=== PATIENT | female | born 1945 | race Caucasian/White ===

== ENCOUNTER 2018-02-22 19:21 | Inpatient (IN) | payer BC, MEDICARE ==
[2018-02-22] MEDS ORDERED: ACETAMINOPHEN TAB 500 MG TAB PO STA (20:09)
[2018-02-22] MEDS ORDERED: SODIUM CHLORIDE 0.9% 1,000 ML IV STA (20:09)
[2018-02-22] MEDS ORDERED: VANCOMYCIN IV PER PHARMACY 1 EACH MISC MISCELLANE PRN (20:09)
[2018-02-22] MEDS ORDERED: IBUPROFEN 600 MG TAB PO STA (20:09)
[2018-02-22] MEDS ORDERED: SODIUM CHLORIDE 0.9% 500 ML 500 ML IV STA (20:09)
[2018-02-22] MEDS ORDERED: cefTRIAXone 2,000 MG in SODIUM CHLORIDE 0.9% 100 ML IVPB STA (20:10)
[2018-02-22 20:50] LABS: Albumin 3.7 g/dL (3.5-5.0); Calcium 9.8 mg/dL (8.4-10.2); Magnesium 1.6 mg/dL (1.6-2.3); Phosphorus 2.5 mg/dL (2.5-4.5); Potassium 4.2 mmol/L (3.5-5.1); Total Protein 6.4 g/dL (6.3-8.2)
--- NOTE | 2018-02-22 20:59 | ED ---
Wound/Laceration HPI - General Chief Complaint: Wound/Laceration Stated Complaint: open sore/weakness Time Seen by Provider: 02/22/18 19:56 Source: patient, family, RN notes reviewed, old records reviewed Mode of arrival: wheelchair Limitations: no limitations - History of Present Illness Initial Comments: This is a 72-year-old female the ER for evaluation of abscess versus infection. Patient states she had an injury following up with her the likely cause her to have an abrasion in her buttocks area. Patient states that infection is worsened sialitis is worsened and she is unable to treat her symptoms at home. Patient coming in for evaluation of infection, denies taking her fever but she does feel like she has had fevers and chills -: days(s) (3) Place: home Patient Tetanus UTD: No Context: fall Associated Symptoms: none - Related Data Home Medications Medication Instructions Recorded Confirmed Ergocalciferol [Vitamin D2 1 cap PO SA 10/07/15 02/22/18 (DRISDOL)] Fenofibrate 160 mg PO DAILY 10/07/15 02/22/18 Lisinopril [Zestril] 20 mg PO QAM 10/07/15 02/22/18 Metoprolol Tartrate [Lopressor] 50 mg PO BID 10/07/15 02/22/18 Naproxen [Naprosyn] 500 mg PO BID 10/07/15 02/22/18 Omeprazole [PriLOSEC] 20 mg PO QAM 10/07/15 02/22/18 Simvastatin [Zocor] 40 mg PO DAILY 10/07/15 02/22/18 Ubidecarenone [Co Q-10] 200 mg PO QAM 10/07/15 02/22/18 Ascorbic Acid [Vitamin C] 500 mg PO DAILY 02/22/18 02/22/18 Aspirin [Adult Low Dose Aspirin EC] 81 mg PO DAILY 02/22/18 02/22/18 Cholecalciferol [Vitamin D3] 2,000 unit PO DAILY 02/22/18 02/22/18 Cyanocobalamin (Vitamin B-12) 1,000 mcg PO DAILY 02/22/18 02/22/18 [Vitamin B-12] Ferrous Sulfate [Feosol] 325 mg PO DAILY 02/22/18 02/22/18 Flaxseed Oil [Monarch-3 Flaxseed Oil] 1,000 mg PO DAILY 02/22/18 02/22/18 Folic Acid 0.4 mg PO DAILY 02/22/18 02/22/18 Glucosamine-Chondr 500-400Mg 1 tab PO DAILY 02/22/18 02/22/18 Multivitamins, Thera [Multivitamin 1 tab PO DAILY 02/22/18 02/22/18 (formulary)] Naproxen Sodium [Aleve] 220 mg PO Q12HR 02/22/18 02/22/18 Allergies Allergy/AdvReac Type Severity Reaction Status Date / Time Penicillins Allergy Rash/Hives Verified 02/22/18 23:19 titanium Allergy Anaphylaxis. Verified 02/22/18 20:51 SLOUGHING OF SKIN Review of Systems ROS Statement: Those systems with pertinent positive or pertinent negative responses have been documented in the HPI. ROS Other: All systems not noted in ROS Statement are negative. Past Medical History Past Medical History: GERD/Reflux, Hyperlipidemia, Hypertension, Osteoarthritis (OA) Additional Past Medical History / Comment(s): DIVERTICULITIS History of Any Multi-Drug Resistant Organisms: None Reported Past Surgical History: Cholecystectomy, Heart Catheterization With Stent, Tubal Ligation Additional Past Surgical History / Comment(s): LEFT ANKLE ORIF. BILATERAL KNEE REPLACEMENTS. 2 STENTS X 2. Past Anesthesia/Blood Transfusion Reactions: No Reported Reaction Date of Last Stent Placement:: UNK Past Psychological History: No Psychological Hx Reported Smoking Status: Never smoker Past Alcohol Use History: Rare Past Drug Use History: None Reported - Past Family History Mother Additional Family Medical History / Comment(s): DIVERTICULITIS General Exam - General Exam Comments Initial Comments: Left sacral abscess with surrounding cellulitis Limitations: no limitations General appearance: alert, in no apparent distress Head exam: Present: atraumatic, normocephalic, normal inspection Eye exam: Present: normal appearance, PERRL, EOMI. Absent: scleral icterus, conjunctival injection, periorbital swelling ENT exam: Present: normal exam, mucous membranes moist Neck exam: Present: normal inspection. Absent: tenderness, meningismus, lymphadenopathy Respiratory exam: Present: normal lung sounds bilaterally. Absent: respiratory distress, wheezes, rales, rhonchi, stridor Cardiovascular Exam: Present: regular rate, normal rhythm, normal heart sounds. Absent: systolic murmur, diastolic murmur, rubs, gallop, clicks GI/Abdominal exam: Present: soft, normal bowel sounds. Absent: distended, tenderness, guarding, rebound, rigid Extremities exam: Present: normal inspection, full ROM, normal capillary refill. Absent: tenderness, pedal edema, joint swelling, calf tenderness Back exam: Present: normal inspection Neurological exam: Present: alert, oriented X3, CN II-XII intact Psychiatric exam: Present: normal affect, normal mood Skin exam: Present: warm, dry, intact, normal color. Absent: rash Course Vital Signs 02/22/18 02/22/18 02/22/18 19:33 21:32 22:06 Temperature 99.5 F 98.1 F 98.1 F Pulse Rate 74 67 81 Respiratory Rate Blood Pressure 125/68 103/42 109/60 O2 Sat by Pulse 95 94 L 95 Oximetry Medical Decision Making - Medical Decision Making 72 female the ER for evaluation of breath of left buttocks, abscess syncope decubitus ulcer extremity cellulitis, patient be admitted for IV antibiotics - Lab Data Result diagrams: 02/25/18 07:03 02/25/18 07:03 Lab Results 02/22/18 02/22/18 02/22/18 Range/Units 20:15 20:15 20:15 WBC 16.6 H (3.8-10.6) k/uL RBC 4.37 (3.80-5.40) m/uL Hgb 13.5 (11.4-16.0) gm/dL Hct 40.3 (34.0-46.0) % MCV 92.4 (80.0-100.0) fL MCH 31.0 (25.0-35.0) pg MCHC 33.6 (31.0-37.0) g/dL RDW 13.5 (11.5-15.5) % Plt Count 127 L (150-450) k/uL Neutrophils % 83 % Lymphocytes % 4 % Monocytes % 9 % Eosinophils % 0 % Basophils % 0 % Neutrophils # 13.9 H (1.3-7.7) k/uL Lymphocytes # 0.7 L (1.0-4.8) k/uL Monocytes # 1.5 H (0-1.0) k/uL Eosinophils # 0.0 (0-0.7) k/uL Basophils # 0.0 (0-0.2) k/uL PT (9.0-12.0) sec INR (<1.2) APTT (22.0-30.0) sec Sodium 135 L (137-145) mmol/L Potassium 4.2 (3.5-5.1) mmol/L Chloride 102 (98-107) mmol/L Carbon Dioxide 22 (22-30) mmol/L Anion Gap 11 mmol/L BUN 23 H (7-17) mg/dL Creatinine 1.02 (0.52-1.04) mg/dL Est GFR (CKD-EPI)AfAm 63 (>60 ml/min/1.73 sqM) Est GFR (CKD-EPI)NonAf 55 (>60 ml/min/1.73 sqM) Glucose 365 H (74-99) mg/dL Plasma Lactic Acid Justice (0.7-2.0) mmol/L Calcium 9.8 (8.4-10.2) mg/dL Phosphorus 2.5 (2.5-4.5) mg/dL Magnesium 1.6 (1.6-2.3) mg/dL Total Bilirubin 1.0 (0.2-1.3) mg/dL AST 40 H (14-36) U/L ALT 58 H (9-52) U/L Alkaline Phosphatase 99 (38-126) U/L Total Creatine Kinase 57 (30-135) U/L CK-MB (CK-2) 0.9 (0.0-2.4) ng/mL CK-MB (CK-2) Rel Index 1.6 Troponin I 0.028 (0.000-0.034) ng/mL Total Protein 6.4 (6.3-8.2) g/dL Albumin 3.7 (3.5-5.0) g/dL Urine Color Urine Appearance (Clear) Urine pH (5.0-8.0) Ur Specific [place] (1.001-1.035) Urine Protein (Negative) Urine Glucose (UA) (Negative) Urine Ketones (Negative) Urine Blood (Negative) Urine Nitrite (Negative) Urine Bilirubin (Negative) Urine Urobilinogen (<2.0) mg/dL Ur Leukocyte Esterase (Negative) Urine RBC (0-5) /hpf Urine WBC (0-5) /hpf Ur Squamous Epith Cells (0-4) /hpf Urine Mucus (None) /hpf 02/22/18 02/22/18 02/22/18 Range/Units 20:15 20:15 20:40 WBC (3.8-10.6) k/uL RBC (3.80-5.40) m/uL Hgb (11.4-16.0) gm/dL Hct (34.0-46.0) % MCV (80.0-100.0) fL MCH (25.0-35.0) pg MCHC (31.0-37.0) g/dL RDW (11.5-15.5) % Plt Count (150-450) k/uL Neutrophils % % Lymphocytes % % Monocytes % % Eosinophils % % Basophils % % Neutrophils # (1.3-7.7) k/uL Lymphocytes # (1.0-4.8) k/uL Monocytes # (0-1.0) k/uL Eosinophils # (0-0.7) k/uL Basophils # (0-0.2) k/uL PT 11.6 (9.0-12.0) sec INR 1.2 H (<1.2) APTT 29.4 (22.0-30.0) sec Sodium (137-145) mmol/L Potassium (3.5-5.1) mmol/L Chloride (98-107) mmol/L Carbon Dioxide (22-30) mmol/L Anion Gap mmol/L BUN (7-17) mg/dL Creatinine (0.52-1.04) mg/dL Est GFR (CKD-EPI)AfAm (>60 ml/min/1.73 sqM) Est GFR (CKD-EPI)NonAf (>60 ml/min/1.73 sqM) Glucose (74-99) mg/dL Plasma Lactic Acid Justice 1.8 (0.7-2.0) mmol/L Calcium (8.4-10.2) mg/dL Phosphorus (2.5-4.5) mg/dL Magnesium (1.6-2.3) mg/dL Total Bilirubin (0.2-1.3) mg/dL AST (14-36) U/L ALT (9-52) U/L Alkaline Phosphatase (38-126) U/L Total Creatine Kinase (30-135) U/L CK-MB (CK-2) (0.0-2.4) ng/mL CK-MB (CK-2) Rel Index Troponin I (0.000-0.034) ng/mL Total Protein (6.3-8.2) g/dL Albumin (3.5-5.0) g/dL Urine Color Yellow Urine Appearance Cloudy H (Clear) Urine pH 5.5 (5.0-8.0) Ur Specific [place] 1.024 (1.001-1.035) Urine Protein 1+ H (Negative) Urine Glucose (UA) 4+ H (Negative) Urine Ketones Negative (Negative) Urine Blood Trace H (Negative) Urine Nitrite Negative (Negative) Urine Bilirubin Negative (Negative) Urine Urobilinogen <2.0 (<2.0) mg/dL Ur Leukocyte Esterase Small H (Negative) Urine RBC 3 (0-5) /hpf Urine WBC 16 H (0-5) /hpf Ur Squamous Epith Cells 7 H (0-4) /hpf Urine Mucus Rare H (None) /hpf - EKG Data -: EKG Interpreted by Me (EKG shows sinus rhythm rate of 89, FL 136, QRS 94, QTC 447) EKG shows normal: sinus rhythm - Radiology Data Radiology results: report reviewed (CT abdomen pelvis is negative for acute significant disease or abscess), image reviewed Disposition Clinical Impression: Sacral decubitus ulcer, Fever, Cellulitis of buttock, left Disposition: ADMITTED IP TO THIS [facility] Condition: Good Is patient prescribed a controlled substance at d/c from ED?: No
[2018-02-22 21:00] LABS: Basophils % (A) 0 %; Eosinophils % (A) 0 %; HCT 40.3 % (34.0-46.0); HGB 13.5 gm/dL (11.4-16.0); Lymphocytes # (A) 0.7 k/uL (1.0-4.8); Lymphocytes % (A) 4 %; MCHC 33.6 g/dL (31.0-37.0); MCV 92.4 fL (80.0-100.0); Mean Platelet Volume 10.2; Monocytes # (A) 1.5 k/uL (0-1.0); Monocytes % (A) 9 %; Neutrophils # (A) 13.9 k/uL (1.3-7.7); Neutrophils % (A) 83 %; Platelet Count 127 k/uL (150-450); RBC 4.37 m/uL (3.80-5.40); RDW 13.5 % (11.5-15.5); WBC 16.6 k/uL (3.8-10.6)
[2018-02-22] MEDS ORDERED: VANCOMYCIN 2,000 MG in SODIUM CHLORIDE 0.9% 500 ML 500 ML IVPB ONE (21:00)
[2018-02-22 21:01] LABS: Appearance,Urine Cloudy (Clear); Bilirubin,Urine Negative (Negative); Blood,Urine Trace (Negative); Color,Urine Yellow; Glucose,Urine (UA) 4+ (Negative); Ketones,Urine Negative (Negative); Leukocyte Esterase,Urine Small (Negative); Mucus,Urine Rare /hpf; Nitrite,Urine Negative (Negative); PH, Urine 5.5 (5.0-8.0); Protein,Urine 1+ (Negative); RBC,Urine 3 /hpf (0-5); Specific Gravity,Urine 1.024 (1.001-1.035); Squamous Epithelial Cell,Urine 7 /hpf (0-4); Urobilinogen,Urine <2.0 mg/dL (<2.0); WBC,Urine 16 /hpf (0-5)
[2018-02-22 21:09] LABS: INR 1.2 (<1.2); Partial Thromboplastin Time 29.4 sec (22.0-30.0); Prothrombin Time 11.6 sec (9.0-12.0)
[2018-02-22 21:27] LABS: Creatine Kinase MB 0.9 ng/mL (0.0-2.4)
[2018-02-22 21:30] LABS: Troponin I 0.028 ng/mL (0.000-0.034)
--- NOTE | 2018-02-22 21:41 | CT ---
EXAMINATION TYPE: CT pelvis w con DATE OF EXAM: 02/22/2018 COMPARISON: HISTORY: Left buttock wound. CT DLP: 1966.6 mGycm Automated exposure control for dose reduction was used. CONTRAST: Performed with IV Contrast, patient injected with 100 mL of Isovue 300. FINDINGS: Multiple axial sections were obtained from the level of L2 to the proximal femurs with intravenous co ntrast. There is a large incarcerated ventral hernia contains loops of bowel and fat. The opening is 6.5 x 13 cm. There is no ascites. There is no evidence of a bowel obstruction. Bladder is almost empty. I see no pelvic mass. Uterus is anteverted. There are spondylotic changes in the lower lumbar spine. There is no compression fracture. There is mild subcutaneous edema posteriorly over both buttocks. This is fairly symmetric. I see no evidence of an abscess. There are tiny soft tissue subcutaneous calcifica tions in the left buttock. The bony pelvis appears intact. There is a mild first-degree degenerative L4-5 spondylolisthesis. There is no inguinal hernia. IMPRESSION: I do not see evidence of a abscess in the buttocks. There is bilateral buttock subcutaneo us edema. There is also lower lumbar spine subcutaneous edema. There is spondylotic changes in the ashvin mbar spine with bony spinal stenosis at L4-5 and degenerative first-degree spondylolisthesis. There i s also some spinal stenosis at L2-3. Incarcerated large lower abdominal ventral hernia without eviden ce of a bowel obstruction.
[2018-02-23 00:24] LABS: Glucose,Whole Blood 347 mg/dL (75-99)
[2018-02-23] MEDS: INSULIN ASPART 100 UNIT/ML 1 ML 10 ML VIAL SQ SCH ×5 (00:42→21:28)
[2018-02-23] MEDS: ACETAMINOPHEN TAB 325 MG TAB PO PRN ×4 (00:51→15:53)
[2018-02-23 07:02] LABS: Glucose,Whole Blood 308 mg/dL (75-99)
[2018-02-23] MEDS: ENOXAPARIN 40 MG/0.4 ML SYRINGE SQ SCH (08:10)
[2018-02-23 11:15] VITALS: BMI 39.1
[2018-02-23 11:39] LABS: Glucose,Whole Blood 310 mg/dL (75-99)
[2018-02-23] MEDS ORDERED: LEVOFLOXACIN 500MG-D5W PMX 500 MG in DEXTROSE/WATER 1 100ML.BAG IVPB SCH (17:00)
[2018-02-23 17:18] LABS: Glucose,Whole Blood 241 mg/dL (75-99)
--- NOTE | 2018-02-23 18:10 | HP ---
HISTORY AND PHYSICAL DATE OF SERVICE: 02/23/2018 CHIEF COMPLAINTS: Fever and sacral wound. HISTORY OF PRESENT ILLNESS: This 72-year-old woman with a past medical history of multiple medical problems including GERD and hypertension, hyperlipidemia, history of DJD, being followed by Dr. Emeli Conklin in the outpatient setting, apparently had a trip to [place] a few weeks ago. Now currently the patient is complaining of some erythema and tenderness and as well as some ulceration of the sacral area with some fever. The patient came to [facility] and admitted for further evaluation and treatment. There is no history of any headache, loss of consciousness, chest pain, palpitations, hematochezia or melena at this time. PAST MEDICAL HISTORY: History of GERD, hypertension, hyperlipidemia, history of DJD, history of cholecystectomy. MEDICATIONS: Prior to admission include: 1. Coenzyme Q 200 mg q.a.m. 2. Zocor 40 mg daily. 3. Prilosec 20 mg q.a.m. 4. Naprosyn 500 mg b.i.d. 5. Aleve 220 mcg p.o. b.i.d. 6. Multivitamins 1 p.o. daily. 7. Lopressor 50 mg b.i.d. 8. Zestril 20 mg q.a.m. 9. Glucosamine chondroitin 1 tablet p.o. daily. 10.Folic acid 0.4 daily. 11.Boston-3 fatty acid 1 g daily. 12.Iron sulfate 320 mg daily. 13.Fenofibrate 160 mg p.o. daily. 14.Vitamin D2 1 capsule p.o. weekly. 15.Vitamin B12 1000 mcg p.o. daily. 16.Vitamin D3 2000 daily. 17.Aspirin 81 mg daily. 18.Vitamin C 500 mg daily. ALLERGIES: PENICILLIN AND TITANIUM. FAMILY HISTORY: History of diabetes in the family. SOCIAL HISTORY: No history of smoking. No history of alcohol intake. REVIEW OF SYSTEMS: ENT: No diminished vision. No diminished hearing. CARDIOVASCULAR: As mentioned earlier. RESPIRATORY: As mentioned earlier. GI no nausea or vomiting. no dysuria. CENTRAL NERVOUS SYSTEM: No numbness or weakness. ALLERGY/IMMUNOLOGY: No asthma or hayfever. CENTRAL NERVOUS SYSTEM: As mentioned earlier. MUSCULOSKELETAL: As mentioned earlier. HEMATOLOGY/ONCOLOGY: No history of anemia. ENDOCRINE: Diabetes. CONSTITUTIONAL: As mentioned earlier. Dermatology: Negative. Rheumatology: Negative. Psychiatry: As mentioned earlier. PHYSICAL EXAMINATION: GENERAL: The patient is alert and oriented times three. VITAL SIGNS: Pulse 74, pressure 121/77, respiratory rate 16, temperature 97.4, pulse ox 97% on room air. HEENT conjunctivae normal. Oral mucosa moist. Neck is no jugular venous distention. No carotid bruit. No lymph node enlargement. Obese. CARDIOVASCULAR: S1-S2. RESPIRATORY: Breath sounds diminished in the bases. A few scattered rhonchi and crackles. ABDOMEN: Soft, obese, nontender. No mass palpable. LEGS: No edema. No swelling. Examination of the sacrum significant erythema noted above the low back area present. Otherwise, sacral decubitus and ulceration with cellulitis, grade 1. NERVOUS SYSTEM: Higher functions as mentioned earlier. Moves all four limbs. No focal deficits. Lymphatics: No lymph nodes palpable in the neck, axillae or groin. SKIN as mentioned earlier. JOINTS: No active deforming arthropathy. LABS: WBC 16.6, platelets 127 and sodium 135, and glucose 365. Lactic acid 1.8. ASSESSMENT: 1. Sacral ulceration decubitus with cellulitis with severe acute respiratory syndrome. 2. Thrombocytopenia. 3. Hyponatremia. 4. Diabetes mellitus type 2. 5. Increased AST and ALT. 6. Possible urinary tract infection present on admission. 7. Obesity with body mass of 39.1. 8. Hypertension. 9. Hyperlipidemia. 10.Gastroesophageal reflux disease. 11.Degenerative joint disease. 12.History of diverticulitis. 13.History of coronary artery disease/stent. RECOMMENDATIONS AND DISCUSSION: In this 72-year-old woman who presented with multiple complex medical issues, we will monitor the patient closely. Continue the current medications, management and symptomatic treatment. We will initiate broad-spectrum IV antibiotics. Otherwise , I would recommend infectious disease evaluation with Dr. Castaneda. Resume the home medications. Monitor blood sugars closely. Resume home medications. Prognosis guarded because of multiple complex medical issues. Further recommendations to follow. A copy of dictation being forwarded to Dr. Conklin who is the primary care physician. MMMELONIEL / MIGNONN: [id number] / MTDD
[2018-02-23] MEDS: cefTRIAXone 2,000 MG in SODIUM CHLORIDE 0.9% 100 ML IVPB SCH (18:15)
[2018-02-23 20:09] LABS: Glucose,Whole Blood 283 mg/dL (75-99)
[2018-02-23] MEDS ORDERED: NAPROXEN SODIUM 220 MG PO SCH (21:00)
--- NOTE | 2018-02-23 21:16 | CONS ---
CONSULTATION DATE OF SERVICE: 02/23/2018. REASON FOR CONSULTATION: Gluteal/posterior back cellulitis with wound. HISTORY OF PRESENT ILLNESS: The patient is a 72 -year-old female, who apparently about 3 weeks ago did have an injury when she slammed on her toilet seat. She did have having a laceration small wound to the bilateral gluteal area. The patient say that her right sided gluteal ulceration has healed up. However, the left side, she still has small wound and has not completely healed up. Yesterday she noticed that her left gluteal area was swollen and red. She did have slight dull aching pain to that area with intensity about 4 to 5/10, and no radiation. The patient did have some chills with fever. With these symptoms, the patient presented to the [facility] ER to be further evaluated. On arrival the patient did have a low-grade fever of 99.5. The patient did have elevated white count 16.6, creatinine 1.02. Liver enzymes mildly elevated and she did have a positive UA with cloudy urine, small leukocyte esterases, 16 WBCs. The patient did have a CT of the pelvic area completed by the ER physician, which shows no evidence of abscess in the buttock. There is bilateral buttock subcutaneous edema and also lower lumbar edema with spondylitic changes in the lumbar spine. The patient did receive a dose of Rocephin and Vanco in the ER. Subsequently has been admitted to the hospital and Infectious Disease was consulted for further recommendation regarding antibiotic therapy. REVIEW OF SYSTEMS: CONSTITUTIONAL: Positive for weakness and some chills. EYES: No complaint. ENT no complaint. RESPIRATORY no complaint. CARDIOVASCULAR no complaint. GENITOURINARY no complaint. GASTROINTESTINAL: No complaint. MUSCULOSKELETAL no complaint. INTEGUMENTARY: As per HPI. PSYCHOLOGICAL: No complaint. ENDOCRINE: No complaint. NEUROLOGIC no complaint. PAST MEDICAL HISTORY: Hypertension, hyperlipidemia, osteoarthritis, gastroesophageal reflux disease, diverticulitis. PAST SURGICAL HISTORY: Cholecystectomy, PTCA with stent, tubal ligation, bilateral knee replacement and left ankle ORIF. SOCIAL HISTORY: Denies smoking, drinking, or drug use. FAMILY HISTORY: Mother with history of diverticulitis. ALLERGIES: PENICILLIN. However has taken Keflex without any problem . MEDICATIONS: Medication currently includes the patient is on: 1. Tylenol. 2. Vitamin C. 3. Aspirin. 4. Lipitor. 5. Levaquin. 6. Vitamin D3. 7. Lovenox. 8. Fenofibrate. 9. Iron sulfate. 10.Lopressor. 11.Theragran. 12.Vancomycin pharmacy to dose. EXAMINATION: Blood pressure is 139/81 with a pulse of 74, temperature 98.3. She is 94% on room air. General description is an elderly female, lying in bed in no distress. No tachypnea or accessory muscles of respiration use. HEENT: Shows slight pallor. No scleral icterus. Oral mucosal membranes are dry. No pharyngeal erythema. NECK: Trachea central. No thyromegaly. LUNGS: Unlabored breathing. Clear to auscultation anteriorly. No wheeze or crackles. HEART: S1, S2. Regular rate and rhythm. ABDOMEN: Soft, no tenderness. No guarding or rigidity. EXTREMITIES: No edema of the feet. Examination of the back in the presence of the RN did show a small superficial wound on the left gluteal area with no slough tissue. No surrounding swelling, redness, induration or any foul-smelling drainage. However, the patient did have extensive redness involving the left gluteal area that has been extending to the lower back which is warm to touch. NEUROLOGICAL: Patient is awake, alert, oriented times three. Mood and affect normal. LABS: Hemoglobin 13.5, white count 16.6 with a BUN of 23, creatinine 1.02. Electrolytes have been normal. Liver enzymes mildly elevated. Urine is mildly positive. Pelvic CT report as mentioned above. DIAGNOSTIC IMPRESSION AND PLAN: 1. Patient with left gluteal wound, which is traumatic now with secondary cellulitis. The likely portal of entry is the scrotal wound with a question of possible gram positive pathogen dose with gram-negative in view of the close proximity to the gastrointestinal tract. 2. The patient who does have a PENICILLIN ALLERGY that will limit the number of antibiotics that could be safely used. However, no history of anaphylaxis. PLAN: 1. RN has been advised to eva the area of redness. 2. Vancomycin, pharmacy to dose target of 15 while watching the kidney function and Vanco trough closely. 3. We will discontinue Levaquin and start the patient on Rocephin 2 g daily to cover for gram-negative. 4. We will follow on clinical condition and culture to further adjust medication if needed. Thank you for this consultation. We will follow the patient along with you. MMODL / IJN: [id number] /
[2018-02-23] MEDS: NAPROXEN 250 MG TAB PO SCH (21:27)
[2018-02-23] MEDS: METOPROLOL TARTRATE 50 MG TAB PO SCH (21:27)
[2018-02-23] MEDS: VANCOMYCIN 2,000 MG in SODIUM CHLORIDE 0.9% 500 ML 500 ML IVPB SCH (22:48)
[2018-02-24] MEDS: ACETAMINOPHEN TAB 325 MG TAB PO PRN ×2 (00:34→12:51)
[2018-02-24] MEDS: HYDROcodone/APAP 5-325MG 1 EACH TAB PO PRN ×2 (03:30→21:10)
[2018-02-24 06:56] LABS: Glucose,Whole Blood 222 mg/dL (75-99)
[2018-02-24] MEDS ORDERED: PANTOPRAZOLE 40 MG TABLET PO SCH (07:30)
[2018-02-24] MEDS: INSULIN ASPART 100 UNIT/ML 1 ML 10 ML VIAL SQ SCH ×4 (07:46→21:11)
[2018-02-24] MEDS: PANTOPRAZOLE 40 MG TABLET PO SCH (07:46)
[2018-02-24 08:12] LABS: Calcium 9.1 mg/dL (8.4-10.2); Potassium 4.2 mmol/L (3.5-5.1)
[2018-02-24] MEDS: FERROUS SULFATE 325 MG TAB PO SCH (08:55)
[2018-02-24] MEDS: ENOXAPARIN 40 MG/0.4 ML SYRINGE SQ SCH (08:55)
[2018-02-24] MEDS: cefTRIAXone 2,000 MG in SODIUM CHLORIDE 0.9% 100 ML IVPB SCH (08:55)
[2018-02-24] MEDS: ASPIRIN 81 MG PO SCH (08:55)
[2018-02-24] MEDS: FOLIC ACID 1 MG TAB PO SCH (08:55)
[2018-02-24] MEDS: ASCORBIC ACID 500 MG TAB PO SCH (08:55)
[2018-02-24] MEDS: CHOLECALCIFEROL 1,000 UNIT TAB PO SCH (08:55)
[2018-02-24] MEDS: CYANOCOBALAMIN 500 MCG TAB PO SCH (08:55)
[2018-02-24] MEDS: ATORVASTATIN 20 MG TAB PO SCH (08:55)
[2018-02-24] MEDS: LISINOPRIL 20 MG TAB PO SCH (08:55)
[2018-02-24] MEDS: FENOFIBRATE 160 MG TAB PO SCH (08:56)
[2018-02-24] MEDS: METOPROLOL TARTRATE 50 MG TAB PO SCH ×2 (08:56→21:56)
[2018-02-24] MEDS ORDERED: NON-FORMULARY DRUG (Glucosamine-Chondr 500-400mg 1 TAB) PO SCH (09:00)
[2018-02-24] MEDS ORDERED: NON-FORMULARY DRUG (Ubidecarenone [Co Q-10] 200 MG) PO SCH (09:00)
[2018-02-24] MEDS ORDERED: NON-FORMULARY DRUG (Flaxseed Oil [Omega-3 Flaxseed Oil] 1,000 MG) PO SCH (09:00)
[2018-02-24] MEDS: MULTIVITAMINS, THERA 1 EACH TAB PO SCH (09:01)
[2018-02-24] MEDS: NAPROXEN 250 MG TAB PO SCH ×2 (09:04→21:11)
[2018-02-24 11:59] LABS: Glucose,Whole Blood 287 mg/dL (75-99)
[2018-02-24] MEDS ORDERED: ERGOCALCIFEROL 50,000 UNIT CAP PO SCH (12:00)
[2018-02-24] MEDS ORDERED: INSULIN DETEMIR 100 UNIT/ML 10 ML VIAL SQ ONE (12:57)
[2018-02-24 13:23] LABS: Basophils % (A) 0 %; Eosinophils # (A) 0.2 k/uL (0-0.7); Eosinophils % (A) 2 %; HCT 37.5 % (34.0-46.0); HGB 12.3 gm/dL (11.4-16.0); Lymphocytes # (A) 1.3 k/uL (1.0-4.8); Lymphocytes % (A) 13 %; MCH 30.2 pg (25.0-35.0); MCHC 32.7 g/dL (31.0-37.0); MCV 92.1 fL (80.0-100.0); Mean Platelet Volume 10.8; Monocytes # (A) 0.9 k/uL (0-1.0); Monocytes % (A) 9 %; Neutrophils # (A) 7.4 k/uL (1.3-7.7); Neutrophils % (A) 72 %; Platelet Count 115 k/uL (150-450); RBC 4.07 m/uL (3.80-5.40); RDW 13.6 % (11.5-15.5); WBC 10.2 k/uL (3.8-10.6)
--- NOTE | 2018-02-24 16:08 | PN ---
PROGRESS NOTE DATE OF SERVICE: 02/24/2018 This 72 -year-old woman who was admitted with fever and sacral wound is being closely monitored. Patient also had new onset diabetes also. No chest pain. No palpitations. Sugars 300s and 200s at this time. Hemoglobin A1c is not available. Pelvis CAT scan was done which showed no evidence of abscess in the buttocks. was noted. No chest pain. No palpitation. Infectious disease evaluation in progress. PAST MEDICAL HISTORY: Reviewed. REVIEW OF SYSTEMS: Cardiovascular: No angina or palpitations. Respiration: As mentioned earlier. GI as mentioned earlier. no dysuria. Musculoskeletal: As mentioned earlier. Dermatology as mentioned earlier. CURRENT MEDICATIONS ARE: Reviewed and include: 1. Tylenol 650 q.6h p.r.n. 2. Connell 5 mg q.4h p.r.n. 3. Vitamin C 500 mg daily. 4. Aspirin 81 mg p.o. daily. 5. Lipitor 20 mg daily. 6. Rocephin 2 g IV daily. 7. Vitamin D3 2000 daily. 8. Vitamin B12 1000 daily. 9. Lovenox 40 mg subcu. 10.Vitamin D2 50,000 Monday. 11.Lovenox 40 mg subcu daily. 12.Vitamin B12 1000 daily. 13.Lofibra. 14.Folic acid. 15.NovoLog. 16.Levemir. 18.Lopressor. 19.Naprosyn. 20.Vancomycin doses reviewed. PHYSICAL EXAM: Patient is alert, oriented x3. Pulse 69, blood pressure 161/80, respiration 17, temperature is 98.2, pulse ox 98% on room air. HEENT: Conjunctivae normal. Oral mucosa moist. Neck is no jugular venous distention. No carotid bruit. No lymph node enlargement. Cardiac: S1, S2 muffled. RESPIRATORY: Breath sounds diminished in the bases. No rhonchi. No crackles. ABDOMEN: Soft, nontender. No mass palpable. Legs no edema. No swelling. NERVOUS SYSTEM: Higher functions as mentioned. Moves all four limbs. No focal deficits. Examination of the back, rash and significant rash and cellulitis present. LABS: WBC 10.2, hemoglobin 12.3, platelets 115. Sugars are noted. Creatinine 1.13. ASSESSMENT: 1. Sacral ulceration decubitus cellulitis with severe acute respiratory syndrome. 2. Thrombocytopenia. 3. New onset diabetes type 2, uncontrolled with hyperglycemia. 4. Hyponatremia. 5. Increased AST/ALT. 6. Possibly urinary tract infection, present on admission. 7. Obesity with body mass of 39.1. 8. Hypertension. 9. Hyperlipidemia. 10.Gastroesophageal reflux disease. 11.Degenerative joint disease. 12.History of diverticulitis. 13.History of coronary artery disease/stent. RECOMMENDATIONS AND DISCUSSION: Recommend to continue current medications, management and symptomatic treatment. Patient had trauma. Patient fell on the toilet seat about 3 weeks ago. Otherwise, I would recommend to continue the IV antibiotics and follow with Infectious Disease. Follow the cultures. Also recommend initiate Lantus 20 units subcu q.h.s. and continue scale also. The blood sugar control is important also to control infection. Discussed with the patient. Overall prognosis guarded because of multiple complex medical issues as listed above. Further recommendations to follow. ISRRAEL / ROSALEE: [id number] / MTDD
[2018-02-24 16:51] LABS: Glucose,Whole Blood 248 mg/dL (75-99)
[2018-02-24 18:04] LABS: Hemoglobin A1C 9.9 % (4.0-6.0)
[2018-02-24] MEDS: metFORMIN 500 MG TAB PO SCH (18:34)
[2018-02-24 20:43] LABS: Glucose,Whole Blood 244 mg/dL (75-99)
[2018-02-24] MEDS ORDERED: INSULIN DETEMIR 100 UNIT/ML 10 ML VIAL SQ SCH (21:00)
[2018-02-24] MEDS: VANCOMYCIN 2,000 MG in SODIUM CHLORIDE 0.9% 500 ML 500 ML IVPB SCH (21:11)
[2018-02-25] MEDS: HYDROcodone/APAP 5-325MG 1 EACH TAB PO PRN ×3 (03:04→21:46)
[2018-02-25 07:28] LABS: Glucose,Whole Blood 151 mg/dL (75-99)
[2018-02-25 07:45] LABS: Basophils # (A) 0.1 k/uL (0-0.2); Basophils % (A) 1 %; Eosinophils # (A) 0.3 k/uL (0-0.7); Eosinophils % (A) 3 %; HCT 35.8 % (34.0-46.0); HGB 11.9 gm/dL (11.4-16.0); Lymphocytes # (A) 1.2 k/uL (1.0-4.8); Lymphocytes % (A) 14 %; MCH 30.6 pg (25.0-35.0); MCHC 33.3 g/dL (31.0-37.0); MCV 91.7 fL (80.0-100.0); Mean Platelet Volume 10.7; Monocytes # (A) 0.8 k/uL (0-1.0); Monocytes % (A) 9 %; Neutrophils % (A) 70 %; Platelet Count 121 k/uL (150-450); RDW 13.7 % (11.5-15.5); WBC 8.6 k/uL (3.8-10.6)
[2018-02-25] MEDS: INSULIN ASPART 100 UNIT/ML 1 ML 10 ML VIAL SQ SCH ×4 (08:09→21:46)
[2018-02-25] MEDS: metFORMIN 500 MG TAB PO SCH ×2 (08:09→17:51)
[2018-02-25] MEDS: PANTOPRAZOLE 40 MG TABLET PO SCH (08:09)
[2018-02-25 08:40] LABS: Calcium 9.9 mg/dL (8.4-10.2)
[2018-02-25 08:53] LABS: Potassium 5.3 mmol/L (3.5-5.1)
[2018-02-25] MEDS: ENOXAPARIN 40 MG/0.4 ML SYRINGE SQ SCH (10:01)
[2018-02-25] MEDS: cefTRIAXone 2,000 MG in SODIUM CHLORIDE 0.9% 100 ML IVPB SCH (10:01)
[2018-02-25] MEDS: NAPROXEN 250 MG TAB PO SCH ×2 (10:01→21:47)
[2018-02-25] MEDS: MULTIVITAMINS, THERA 1 EACH TAB PO SCH (10:02)
[2018-02-25] MEDS: LISINOPRIL 20 MG TAB PO SCH (10:02)
[2018-02-25] MEDS: CHOLECALCIFEROL 1,000 UNIT TAB PO SCH (10:02)
[2018-02-25] MEDS: CYANOCOBALAMIN 500 MCG TAB PO SCH (10:02)
[2018-02-25] MEDS: FENOFIBRATE 160 MG TAB PO SCH (10:03)
[2018-02-25] MEDS: FERROUS SULFATE 325 MG TAB PO SCH (10:03)
[2018-02-25] MEDS: ASPIRIN 81 MG PO SCH (10:03)
[2018-02-25] MEDS: METOPROLOL TARTRATE 50 MG TAB PO SCH ×2 (10:03→21:46)
[2018-02-25] MEDS: FOLIC ACID 1 MG TAB PO SCH (10:03)
[2018-02-25] MEDS: ASCORBIC ACID 500 MG TAB PO SCH (10:03)
[2018-02-25] MEDS: ATORVASTATIN 20 MG TAB PO SCH (10:03)
[2018-02-25 11:35] LABS: Glucose,Whole Blood 265 mg/dL (75-99)
[2018-02-25 17:14] LABS: Glucose,Whole Blood 210 mg/dL (75-99)
[2018-02-25] MEDS ORDERED: VANCOMYCIN TROUGH DUE 1 EACH MISC MISCELLANE ONE (19:00)
[2018-02-25 20:10] LABS: Glucose,Whole Blood 255 mg/dL (75-99)
--- NOTE | 2018-02-25 20:57 | PN ---
PROGRESS NOTE DATE OF SERVICE: 02/25/2018 This 72-year-old woman, was admitted with sacral wound is on empiric IV antibiotics. No chest pain. No palpitations. No fever. The cultures are negative so far. The patient is on IV empiric antibiotics. PHYSICAL EXAM: Alert and oriented x3. Pulse 76, blood pressure 159/76, respiration 18, temperature 98.2, pulse ox 94% on room air. HEENT: Conjunctivae normal. Oral mucosa moist. Neck is no jugular venous distention. No carotid bruit. No lymph node enlargement. CARDIOVASCULAR: S1, S2. RESPIRATORY: Breath sounds diminished in the bases. No rhonchi. No crackles. ABDOMEN: Soft, nontender. LEGS: No edema. NERVOUS SYSTEM: No focal deficits. EXAMINATION OF THE BACK: Sacral area tenderness and redness and also significant maceration and as well as ulceration of the right gluteal area also present. LABS: Platelets are 121. Sodium 132, potassium 5.3 Accu-Cheks noted. ASSESSMENT: 1. Sacral ulceration and possible decubitus with cellulitis and SIRS. 2. Thrombocytopenia. 3. History of trauma. 4. New onset diabetes mellitus uncontrolled with hyperglycemia. 5. Hyponatremia. 6. Increased AST, ALT. 7. Urinary tract infection present on admission. 8. Obesity with body mass index of 39.1. 9. Hypertension. 10.Hyperlipidemia. 11.History of gastroesophageal reflux disease. 12.History of degenerative joint disease. 13.History of diverticulitis. 14.History of coronary artery disease, stent. RECOMMENDATIONS AND DISCUSSION: I recommend to continue with current management, continue monitoring and symptomatic treatment. Continue with IV antibiotics. I would also increase the dose of Lantus to 30 units and continue to monitor. Continue the metformin. Otherwise, continue to monitor. Further recommendations to follow. MMODL / IJN: [id number] /
[2018-02-25] MEDS: INSULIN DETEMIR 100 UNIT/ML 10 ML VIAL SQ SCH (21:46)
[2018-02-25] MEDS: VANCOMYCIN 2,000 MG in SODIUM CHLORIDE 0.9% 500 ML 500 ML IVPB SCH (21:47)
--- NOTE | 2018-02-25 23:33 | PN ---
PROGRESS NOTE DATE OF SERVICE: 02/25/2018. REASON FOR FOLLOWUP: Left gluteal wound with secondary cellulitis. INTERVAL HISTORY: The patient is currently afebrile. She is slightly feeling better. The gluteal pain and swelling has improved. The redness has decreased. Denies any chest pain, shortness of breath or cough. No diarrhea. EXAMINATION: Blood pressure is 181/79 with a pulse of 75, temperature 96.4, she is 96% on room air. GENERAL DESCRIPTION: An elderly female up in the chair in no distress. RESPIRATORY SYSTEM: Unlabored breathing. Clear to auscultation anteriorly. HEART: S1, S2 regular rate and rhythm. The left gluteal and back swelling and redness have decreased. No drainage. LABS: Hemoglobin is 11.8, white count 8.6, BUN of 31, creatinine 0.91. White count slightly elevated at 11.71. DIAGNOSTIC IMPRESSION AND PLAN: Patient with left gluteal wound with secondary cellulitis involving the left gluteal and the low back area, more likely from a gram-positive skin meaghan. Culture seems to have been negative so far. The patient treated with vancomycin and ceftriaxone and the patient did improve with oral antibiotics. Continue supportive care. MMODL / IJN: [id number] /
[2018-02-26 07:15] LABS: Glucose,Whole Blood 136 mg/dL (75-99)
[2018-02-26] MEDS: NAPROXEN 250 MG TAB PO SCH ×2 (07:52→21:48)
[2018-02-26] MEDS: METOPROLOL TARTRATE 50 MG TAB PO SCH ×2 (07:53→22:07)
[2018-02-26] MEDS: ASPIRIN 81 MG PO SCH (07:53)
[2018-02-26] MEDS: FENOFIBRATE 160 MG TAB PO SCH (07:53)
[2018-02-26] MEDS: metFORMIN 500 MG TAB PO SCH ×2 (07:53→18:01)
[2018-02-26] MEDS: MULTIVITAMINS, THERA 1 EACH TAB PO SCH (07:53)
[2018-02-26] MEDS: FOLIC ACID 1 MG TAB PO SCH (07:53)
[2018-02-26] MEDS: PANTOPRAZOLE 40 MG TABLET PO SCH (07:53)
[2018-02-26] MEDS: ATORVASTATIN 20 MG TAB PO SCH (07:53)
[2018-02-26] MEDS: ASCORBIC ACID 500 MG TAB PO SCH (07:53)
[2018-02-26] MEDS: CYANOCOBALAMIN 500 MCG TAB PO SCH (07:53)
[2018-02-26] MEDS: INSULIN ASPART 100 UNIT/ML 1 ML 10 ML VIAL SQ SCH ×4 (07:54→21:47)
[2018-02-26] MEDS: cefTRIAXone 2,000 MG in SODIUM CHLORIDE 0.9% 100 ML IVPB SCH (07:54)
[2018-02-26] MEDS: FERROUS SULFATE 325 MG TAB PO SCH (07:54)
[2018-02-26] MEDS: LISINOPRIL 20 MG TAB PO SCH (07:54)
[2018-02-26] MEDS: ENOXAPARIN 40 MG/0.4 ML SYRINGE SQ SCH (07:54)
[2018-02-26] MEDS: HYDROcodone/APAP 5-325MG 1 EACH TAB PO PRN ×2 (09:03→21:49)
[2018-02-26 10:05] LABS: Calcium 10.4 mg/dL (8.4-10.2); Potassium 5.1 mmol/L (3.5-5.1)
[2018-02-26 12:09] LABS: Glucose,Whole Blood 201 mg/dL (75-99)
[2018-02-26] MEDS: CHOLECALCIFEROL 1,000 UNIT TAB PO SCH (12:28)
[2018-02-26 17:40] LABS: Glucose,Whole Blood 184 mg/dL (75-99)
[2018-02-26 20:24] LABS: Glucose,Whole Blood 194 mg/dL (75-99)
[2018-02-26] MEDS: INSULIN DETEMIR 100 UNIT/ML 10 ML VIAL SQ SCH (21:47)
[2018-02-26] MEDS: VANCOMYCIN 2,000 MG in SODIUM CHLORIDE 0.9% 500 ML 500 ML IVPB SCH (21:48)
--- NOTE | 2018-02-27 00:19 | PN ---
PROGRESS NOTE DATE OF SERVICE: 02/26/2018. REASON FOR FOLLOWUP: Left gluteal back abscess and cellulitis. INTERVAL HISTORY: The patient is currently afebrile. The patient is slightly feeling better. The pain to the lower back and gluteal area has decreased. Denies any chest pain, shortness of breath or cough. No abdominal pain or any diarrhea. EXAMINATION: Blood pressure 135/78 with a pulse of 73, temperature 98.9. She is 97% on room air. General description is an elderly female up in the bed in no distress. Respiratory system: Unlabored breathing. Clear to auscultation anteriorly. Heart S1, S2. Regular rate and rhythm. Abdomen: Soft. No tenderness. Left gluteal swelling and redness decreased. Currently no drainage. DIAGNOSTIC IMPRESSION AND PLAN: Patient with left gluteal wound with secondary cellulitis involving the left gluteal and the lower back area. Wound culture so far negative. The patient at this time on vancomycin and Rocephin to continue for another 24 hours. If the patient continues to improve plan to finish therapy with oral Keflex for about a week with close outpatient followup. Continue supportive care. MMODL / IJN: [id number] /
--- NOTE | 2018-02-27 00:19 | PN ---
PROGRESS NOTE DATE OF SERVICE: 02/26/2018 PRESENTING COMPLAINT: Left gluteal wound with surrounding cellulitis. INTERVAL HISTORY: This patient presented with left gluteal wound with surrounding cellulitis. Pain is much better control. The patient is up and about, tolerating a diet. Has been on antibiotics. No fever. No chills. Overall feels much better. REVIEW OF SYSTEMS: Done for constitutional, cardiovascular, GI, pulmonary and relevant findings as above. CURRENT MEDICATIONS: Reviewed that include IV ceftriaxone and vancomycin. PHYSICAL EXAMINATION: VITAL SIGNS: Temperature 98.9, pulse 72, respiratory 18, blood pressure 165/78, pulse 97% on room air. GENERAL APPEARANCE: Well built, BMI 39.2, sitting up on a chair, awake, comfortable. EYES: Pupils equal. Conjunctivae normal. HEENT: External appearance of nose and ears normal. Oral cavity normal. NECK: JVD not raised. Mass not palpable. RESPIRATORY effort normal. LUNGS: Slightly decreased breath sounds. CARDIOVASCULAR: 1st and 2nd sounds normal. No edema. ABDOMEN: Soft, nontender. Liver and spleen not palpable. DERMATOLOGICAL: There is reddening of the left gluteus and a superficial wound near the lucy cleft. INVESTIGATIONS: Potassium 5.1, BUN 31, creatinine 0.93. The patient's wound cultures are negative showing normal meaghan. ASSESSMENT: 1. Acute left gluteal wound with surrounding cellulitis with SIRS with clinical improvement. 2. 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 3. Obesity; BMI 39.2. 4. Gastroesophageal reflux disease. 5. Hyperlipidemia. 6. Essential hypertension. 7. Primary osteoarthritis. 8. Coronary artery disease with stent. 9. Diabetes mellitus, type 2, chronically on insulin. PLAN: Continue current medication and treatment plan. The patient hopefully should be able to be switched to oral antibiotics and hopefully can be discharged tomorrow. Will discuss with Dr. Castaneda from [facility]. MMMARGI / IJN: [id number] /
[2018-02-27] MEDS: HYDROcodone/APAP 5-325MG 1 EACH TAB PO PRN ×2 (01:13→16:47)
[2018-02-27 07:23] LABS: Glucose,Whole Blood 139 mg/dL (75-99)
[2018-02-27] MEDS: ASCORBIC ACID 500 MG TAB PO SCH (07:50)
[2018-02-27] MEDS: METOPROLOL TARTRATE 50 MG TAB PO SCH (07:50)
[2018-02-27] MEDS: FENOFIBRATE 160 MG TAB PO SCH (07:50)
[2018-02-27] MEDS: metFORMIN 500 MG TAB PO SCH ×2 (07:50→16:56)
[2018-02-27] MEDS: PANTOPRAZOLE 40 MG TABLET PO SCH (07:50)
[2018-02-27] MEDS: CYANOCOBALAMIN 500 MCG TAB PO SCH (07:51)
[2018-02-27] MEDS: FOLIC ACID 1 MG TAB PO SCH (07:51)
[2018-02-27] MEDS: ASPIRIN 81 MG PO SCH (07:51)
[2018-02-27] MEDS: MULTIVITAMINS, THERA 1 EACH TAB PO SCH (07:51)
[2018-02-27] MEDS: NAPROXEN 250 MG TAB PO SCH (07:51)
[2018-02-27] MEDS: INSULIN ASPART 100 UNIT/ML 1 ML 10 ML VIAL SQ SCH ×2 (07:52→12:05)
[2018-02-27] MEDS: ATORVASTATIN 20 MG TAB PO SCH (07:52)
[2018-02-27] MEDS: LISINOPRIL 20 MG TAB PO SCH (07:52)
[2018-02-27] MEDS: ENOXAPARIN 40 MG/0.4 ML SYRINGE SQ SCH (07:52)
[2018-02-27] MEDS: FERROUS SULFATE 325 MG TAB PO SCH (07:52)
[2018-02-27] MEDS: cefTRIAXone 2,000 MG in SODIUM CHLORIDE 0.9% 100 ML IVPB SCH (07:53)
[2018-02-27 07:56] LABS: Calcium 9.9 mg/dL (8.4-10.2); Potassium 4.5 mmol/L (3.5-5.1)
[2018-02-27] MEDS ORDERED: CHLORTHALIDONE 25 MG TAB PO SCH (09:00)
[2018-02-27 11:57] LABS: Glucose,Whole Blood 164 mg/dL (75-99)
[2018-02-27] MEDS: CHOLECALCIFEROL 1,000 UNIT TAB PO SCH (12:06)
[2018-02-27] MEDS ORDERED: LISINOPRIL-HCTZ 20-12.5 MG 1 EACH TAB PO STA (12:55)
--- NOTE | 2018-02-27 14:34 | PN ---
PROGRESS NOTE DATE OF SERVICE: 02/27/2018 REASON FOR FOLLOWUP: A left gluteal wound with secondary cellulitis. INTERVAL HISTORY: The patient is currently afebrile. She has been better breathing comfortably. Denies having any chest pain, shortness of breath, abdominal pain, or any worsening pain to the back with the area. PHYSICAL EXAMINATION: Blood pressure 194/83 with a pulse of 73, temperature 97 description is a middle-aged female up in the chair in no distress respiratory system unlabored breathing clear to auscultation anteriorly heart S1, S2. Regular rate. No open left patella swelling tenderness in the is no drainage. LABS: BUN of 31, creatinine 0.84. DIAGNOSTIC IMPRESSION AND PLAN: Patient with a left gluteal small wound with secondary cellulitis culture has been negative for resistant pathogen. Recommend therapy with oral Keflex 500 mg q.6 hours for 10 days with close outpatient followup. Discussed with daughter as well as the attending physician. MMODL / IJN: [id number] /
[2018-02-27 14:59] VITALS: BP 163/81; PULSE 78; RESP 16; TEMP 99
[2018-02-27] MEDS ORDERED: INSULN ASP PRT/INSULIN ASPART 100 UNIT/ML 10 ML VIAL SQ SCH (17:30)
--- NOTE | 2018-02-28 00:46 | DS ---
DISCHARGE SUMMARY DATE OF ADMISSION: 02/22/2018. DATE OF DISCHARGE: 02/27/2018. FINAL DIAGNOSES: 1. Acute left gluteal wound with surrounding cellulitis with SIRS present on admission. 2. Thrombocytopenia, likely idiopathic thrombocytopenia purpura. 3. Obesity; BMI 39.2. 4. Gastroesophageal reflux disease. 5. Hyperlipidemia. 6. Essential hypertension. 7. Primary osteoarthritis. 8. Coronary artery with prior history of stent. 9. Diabetes mellitus type 2 chronically on insulin. HOSPITAL COURSE: This patient presented with left superficial gluteal wound with surrounding cellulitis. The patient's blood cultures were negative. Wound cultures were negative. The patient was treated with antibiotics, switched over to oral antibiotic today. I spoke to Dr. Castaneda. Oral antibiotic should suffice. I spoke to the patient. Blood pressure is running on the higher side, hence medications were adjusted. The patient also started on insulin. PHYSICAL EXAMINATION: Temperature 99, pulse 72, respirations 16, blood pressure 163/81, pulse ox 97% on room air. Left buttock cheek superficial wound with surrounding redness, improved. INVESTIGATIONS: Potassium 4.5. White count 8.6, hemoglobin 11.9. DISCHARGE MEDICATIONS: 1. Vitamin D2, 1 capsule p.o. on Monday. 2. Tricor 160 mg p.o. daily. 3. Lopressor 50 mg p.o. b.i.d. 4. Naproxen 500 mg p.o. b.i.d. 5. Prilosec 20 mg p.o. daily. 6. Zocor 40 mg p.o. daily. 7. CO Q10, 200 mg p.o. daily. 8. Vitamin C 500 mg p.o. daily. 9. Aspirin 81 mg p.o. daily. 10.Vitamin D3, 2000 units p.o. daily. 11.Vitamin B12, 1000 mcg p.o. daily. 12.Iron 325 p.o. daily. 13.Flaxseed oil 1000 mg p.o. daily. 14.Folic acid 0.4 mg p.o. daily. 15.Glucosamine chondroitin 1 tablet p.o. daily. 16.Multivitamin 1 tablet p.o. daily. 17.Keflex 100 mg p.o. every 6 hours 28 capsules. 18.Humulin 70/30, 15 units subcutaneous with meals b.i.d. 19.Zestoretic 20/12.5 one tab p.o. b.i.d. 20.Glucophage 500 mg p.o. b.i.d. 21.Accu-Cheks with meals t.i.d. and at bedtime. FOLLOWUP: 1. Follow up with Dr. Emeli Conklin in [address] Castaneda in 1 week. 3. Diabetic diet. Discussion and discharge planning more than 35 minutes. MMODL / IJN: [id number] /
== END 2018-02-27 17:36 | disposition home or self-care (01) | DRG 603 ==
LOC: EC 19:21 → 4SSUR 21:05
PROVIDERS: ADMIT Hospitalist; ATTEND Hospitalist
DX: L03.317 Cellulitis of buttock (principal); D69.3 Immune thrombocytopenic purpura; E87.1 Hypo-osmolality and hyponatremia; L02.212 Cutaneous abscess of back [any part, except buttock and flank]; L03.312 Cellulitis of back [any part except buttock and flank]; N39.0 Urinary tract infection, site not specified; E11.65 Type 2 diabetes mellitus with hyperglycemia; E66.9 Obesity, unspecified; E78.5 Hyperlipidemia, unspecified; I10 Essential (primary) hypertension; I25.10 Atherosclerotic heart disease of native coronary artery without angina pectoris; K21.9 Gastro-esophageal reflux disease without esophagitis; L89.159 Pressure ulcer of sacral region, unspecified stage; M19.91 Primary osteoarthritis, unspecified site; Z68.39 Body mass index [BMI] 39.0-39.9, adult; Z79.82 Long term (current) use of aspirin; Z83.3 Family history of diabetes mellitus; Z88.0 Allergy status to penicillin; Z95.5 Presence of coronary angioplasty implant and graft; Z96.653 Presence of artificial knee joint, bilateral; Z87.19 Personal history of other diseases of the digestive system; S31.82 Open wound of left buttock; Z83.79 Family history of other diseases of the digestive system
CPT/HCPCS: 36415; 72193; 80048; 80053; 80202; 81001; 82550; 82553; 83036; 83605; 83735; 84100; 84484; 85025; 85610; 85730; 87040; 87070; 87086; 87205; 93005; 96365; 96366; 99285

== ENCOUNTER 2019-12-19 12:55 | Emergency (ER) | payer BC, MEDICARE ==
[2019-12-19 13:18] VITALS: TEMP 98.2
[2019-12-19] MEDS ORDERED: KETOROLAC 15 MG/ML 1 ML VIAL IVP STA (13:45)
[2019-12-19] MEDS ORDERED: SODIUM CHLORIDE 0.9% 500 ML 500 ML IV STA (13:45)
--- NOTE | 2019-12-19 13:48 | ED ---
General Adult HPI - General Chief complaint: Abdominal Pain Stated complaint: R Lower Abd Pain Time Seen by Provider: 12/19/19 13:15 Source: patient, family, RN notes reviewed, old records reviewed Mode of arrival: wheelchair Limitations: no limitations - History of Present Illness Initial comments: This is a 74-year-old female presents emergency Department complaining of right flank pain that radiates down into her lower stomach. Patient states it started in the middle the night it was a 10 out of 10 when it occurred initially she states currently he is an 8 out of 10. Patient states the pain is waxing and waning and it did come on suddenly. Patient states she has had diverticulitis but this is different than diverticulitis. Patient denies any dysuria hematuria urinary frequency. Patient denies any palpable abdominal pain. Patient denies any recent injury or fall. Patient denies any fever or chills. Patient denies any chest pain difficulty breathing. - Related Data Previous Rx's Medication Instructions Recorded Ketorolac [Toradol] 10 mg PO Q6HR #15 tab 12/19/19 Sulfamethox-Tmp 800-160Mg [Bactrim 1 each PO Q12HR #14 tab 12/19/19 DS 800-160 mg] Allergies Allergy/AdvReac Type Severity Reaction Status Date / Time Penicillins Allergy Anaphylaxis Verified 12/19/19 13:18 titanium Allergy Rash/Hives Verified 12/19/19 13:18 Review of Systems ROS Statement: Those systems with pertinent positive or pertinent negative responses have been documented in the HPI. ROS Other: All systems not noted in ROS Statement are negative. Past Medical History Past Medical History: Diabetes Mellitus, Hyperlipidemia, Hypertension History of Any Multi-Drug Resistant Organisms: None Reported Past Psychological History: No Psychological Hx Reported Smoking Status: Never smoker Past Alcohol Use History: None Reported Past Drug Use History: None Reported General Exam - General Exam Comments Initial Comments: GENERAL: Patient is well-developed and well-nourished. Patient is nontoxic and well- hydrated and is in mild distress. ENT: Neck is soft and supple. No significant lymphadenopathy is noted. Oropharynx is clear. Moist mucous membranes. Neck has full range of motion without eliciting any pain. EYES: The sclera were anicteric and conjunctiva were pink and moist. Extraocular movements were intact and pupils were equal round and reactive to light. Eyelids were unremarkable. PULMONARY: Unlabored respirations. Good breath sounds bilaterally. No audible rales rhonchi or wheezing was noted. CARDIOVASCULAR: There is a regular rate and rhythm without any murmurs gallops or rubs. ABDOMEN: Soft and nontender with normal bowel sounds. SKIN: Skin is clear with no lesions or rashes and otherwise unremarkable. NEUROLOGIC: Patient is alert and oriented x3. Cranial nerves II through XII are grossly intact. Motor and sensory are also intact. Normal speech, volume and content. Symmetrical smile. MUSCULOSKELETAL: Normal extremities with adequate strength and full range of motion. No lower extremity swelling or edema. No calf tenderness. LYMPHATICS: No significant lymphadenopathy is noted PSYCHIATRIC: Normal psychiatric evaluation. Limitations: no limitations Course Vital Signs 12/19/19 13:15 Temperature 98.2 F Pulse Rate 69 Respiratory 18 Rate Blood Pressure 151/52 O2 Sat by Pulse 96 Oximetry Medical Decision Making - Medical Decision Making Computed tomography scan showed no evidence of kidney stone. There was no acute abnormality noted. I went back in the room she stated the Toradol helped her quite a bit. And she indicated to me at this time that the pain seemed to come and go when she would move or twist. Patient is slight urinary tract infection. - Lab Data Result diagrams: 12/19/19 13:55 12/19/19 13:55 Lab Results 12/19/19 12/19/19 12/19/19 Range/Units 13:55 13:55 14:04 WBC 7.1 (3.8-10.6) k/uL RBC 3.98 (3.80-5.40) m/uL Hgb 12.0 (11.4-16.0) gm/dL Hct 37.1 (34.0-46.0) % MCV 93.2 (80.0-100.0) fL MCH 30.2 (25.0-35.0) pg MCHC 32.5 (31.0-37.0) g/dL RDW 14.0 (11.5-15.5) % Plt Count 119 L (150-450) k/uL Neutrophils % 68 % Lymphocytes % 16 % Monocytes % 9 % Eosinophils % 4 % Basophils % 1 % Neutrophils # 4.8 (1.3-7.7) k/uL Lymphocytes # 1.1 (1.0-4.8) k/uL Monocytes # 0.6 (0-1.0) k/uL Eosinophils # 0.3 (0-0.7) k/uL Basophils # 0.1 (0-0.2) k/uL Manual Slide Review Performed Large Platelets Present Sodium 137 (137-145) mmol/L Potassium 5.0 (3.5-5.1) mmol/L Chloride 107 (98-107) mmol/L Carbon Dioxide 22 (22-30) mmol/L Anion Gap 8 mmol/L BUN 36 H (7-17) mg/dL Creatinine 1.00 (0.52-1.04) mg/dL Est GFR (CKD-EPI)AfAm 64 (>60 ml/min/1.73 sqM) Est GFR (CKD-EPI)NonAf 55 (>60 ml/min/1.73 sqM) Glucose 163 H (74-99) mg/dL Calcium 10.0 (8.4-10.2) mg/dL Total Bilirubin 0.8 (0.2-1.3) mg/dL AST 28 (14-36) U/L ALT 22 (4-34) U/L Alkaline Phosphatase 48 (38-126) U/L Total Protein 6.7 (6.3-8.2) g/dL Albumin 4.3 (3.5-5.0) g/dL Amylase 72 (30-110) U/L Lipase 291 (23-300) U/L Urine Color Yellow Urine Appearance Clear (Clear) Urine pH 6.5 (5.0-8.0) Ur Specific [place] 1.015 (1.001-1.035) Urine Protein Trace H (Negative) Urine Glucose (UA) Negative (Negative) Urine Ketones Negative (Negative) Urine Blood Negative (Negative) Urine Nitrite Negative (Negative) Urine Bilirubin Negative (Negative) Urine Urobilinogen <2.0 (<2.0) mg/dL Ur Leukocyte Esterase Moderate H (Negative) Urine RBC 2 (0-5) /hpf Urine WBC 28 H (0-5) /hpf Ur Squamous Epith Cells 2 (0-4) /hpf Amorphous Sediment Rare H (None) /hpf Urine Bacteria Rare H (None) /hpf Urine Mucus Rare H (None) /hpf Disposition Clinical Impression: Abdominal wall pain, Urinary tract infection Disposition: HOME SELF-CARE Condition: Good Instructions (If sedation given, give patient instructions): Abdominal Pain (ED) Prescriptions: Sulfamethox-Tmp 800-160Mg [Bactrim DS 800-160 mg] 1 each PO Q12HR #14 tab Ketorolac [Toradol] 10 mg PO Q6HR #15 tab Is patient prescribed a controlled substance at d/c from ED?: No Referrals: Emeli Conklin DO [Primary Care Provider] - 1-2 days Time of Disposition: 15:29
[2019-12-19 14:14] LABS: Basophils # (A) 0.1 k/uL (0-0.2); Basophils % (A) 1 %; Eosinophils # (A) 0.3 k/uL (0-0.7); Eosinophils % (A) 4 %; HCT 37.1 % (34.0-46.0); Lymphocytes # (A) 1.1 k/uL (1.0-4.8); Lymphocytes % (A) 16 %; MCH 30.2 pg (25.0-35.0); MCHC 32.5 g/dL (31.0-37.0); MCV 93.2 fL (80.0-100.0); Mean Platelet Volume 11.6; Monocytes # (A) 0.6 k/uL (0-1.0); Monocytes % (A) 9 %; Neutrophils # (A) 4.8 k/uL (1.3-7.7); Neutrophils % (A) 68 %; RBC 3.98 m/uL (3.80-5.40); WBC 7.1 k/uL (3.8-10.6)
[2019-12-19 14:19] LABS: Albumin 4.3 g/dL (3.5-5.0); Total Bilirubin 0.8 mg/dL (0.2-1.3); Total Protein 6.7 g/dL (6.3-8.2)
[2019-12-19 14:38] LABS: Amorphous Sediment,Urine Rare /hpf; Appearance,Urine Clear (Clear); Bacteria,Urine Rare /hpf; Bilirubin,Urine Negative (Negative); Blood,Urine Negative (Negative); Color,Urine Yellow; Glucose,Urine (UA) Negative (Negative); Ketones,Urine Negative (Negative); Leukocyte Esterase,Urine Moderate (Negative); Mucus,Urine Rare /hpf; Nitrite,Urine Negative (Negative); PH, Urine 6.5 (5.0-8.0); Protein,Urine Trace (Negative); RBC,Urine 2 /hpf (0-5); Specific Gravity,Urine 1.015 (1.001-1.035); Squamous Epithelial Cell,Urine 2 /hpf (0-4); Urobilinogen,Urine <2.0 mg/dL (<2.0); WBC,Urine 28 /hpf (0-5)
--- NOTE | 2019-12-19 14:39 | CT ---
EXAMINATION TYPE: CT abdomen pelvis wo con DATE OF EXAM: 12/19/2019 COMPARISON: CT pelvis 02/22/2018 HISTORY: 74-year-old female with abdominal and Right flank to right lower quadrant pain. CT DLP: 1440.4 mGycm. Automated exposure control for dose reduction was used. TECHNIQUE: Contiguous axial scanning of the abdomen and pelvis without IV contrast. Coronal and sagit claire reconstructions performed. FINDINGS: Heart mildly enlarged. Coronary artery calcifications are present. Strandy lower lung densities likel y represent areas of generalized atelectasis. No pleural effusion. Liver enlarged at 20.7 cm. Noncontrast assessment of the adrenal glands, spleen, and pancreas show no gross abnormality. Gallbladder surgically absent. Bilateral renal cysts redemonstrated measuring up to 4.1 cm on the right. Scattered mild to moderate atherosclerotic calcifications abdominal aorta and iliac arteries. No mesenteric or retroperitoneal lymphadenopathy. No dilated small bowel, free fluid, or free air. Postoperative changes of right hemicolectomy with il eocolonic anastomosis at the level of the midtransverse colon. There is a large ventral abdominal wall hernia containing extensive small bowel loops, the ileocoloni c anastomosis, and the mid transverse colon. No obstructive changes. No abnormal fluid collection. Th e hernia measures 29.9 cm wide and 16.8 cm craniocaudal. The abdominal wall defect measures up to 11. 4 cm wide. Bladder nondistended. Uterus anteverted. Both ovaries are visualized.. The right ovary measures sligh tly larger now at 3.8 x 2.5 cm versus 3.3 x 2.0 cm in 2018. Ultrasound can further evaluate. No abnor mal fluid collection in the pelvis or pelvic lymphadenopathy. The bladder is collapsed limiting its e valuation. Advanced hypertrophic facet arthropathy mid to lower lumbar spine with grade 1 anterolisthesis at L4- L5 and advanced degenerative disc disease L4-S1 levels. IMPRESSION: 1. Large ventral abdominal wall hernia containing multiple small bowel loops as well as the ileocolo kallie anastomosis after previous right hemicolectomy. The hernia sac measures 29.9 cm x 16.8 cm, not si gnificantly changed from 2018. No obstructive or inflammatory change is identified. 2. Hepatomegaly at 20.7 cm. 3. Right ovary shows slight increase in size as compared to 2018 at 3.8 cm x 2.5 cm (versus 3.3 x 2. 0 cm, previously). Nonemergent follow-up pelvic ultrasound to better characterize the ovary.
[2019-12-19 14:58] LABS: Platelet Count 119 k/uL (150-450)
[2019-12-19 14:59] LABS: Large Platelets Present
[2019-12-19] MEDS ORDERED: cefTRIAXone IN SWFI 1,000 MG/10 ML SYRINGE IVP STA (15:08)
[2019-12-19 15:40] VITALS: BP 137/86; PULSE 71; RESP 16
== END 2019-12-19 15:38 | disposition home or self-care (01) ==
LOC: EDBD → MERGE 12:55 → EC 12:55
DX: N39.0 Urinary tract infection, site not specified (principal); Z88.0 Allergy status to penicillin; Z91.048 Other nonmedicinal substance allergy status
CPT/HCPCS: 36415; 80053; 82150; 83690; 85025; 81001; 87086; 74176; 99284; 96374; 96361; J1885

== ENCOUNTER → 2020-01-10 | Outpatient (CLI) | payer BC, MEDICARE ==
[2020-01-10 15:56] LABS: INR 1.2 (<1.2); Prothrombin Time 11.9 sec (9.0-12.0)
--- NOTE | 2020-01-11 13:37 | HP ---
HISTORY AND PHYSICAL CHIEF COMPLAINT: Right hip pain. 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 It has worsened recently. She notes groin and thigh pain, worse with walking and at night. She has been limping. She has tried medications without much relief. She notes she is significantly limited because of pain. PAST MEDICAL HISTORY: Significant for hypertension, diabetes, thrombocytopenia, obesity, coronary artery disease. PAST SURGICAL HISTORY: Significant for previous knee surgery, cataract surgery and cholecystectomy. CURRENT MEDICATIONS: Aleve, hydrochlorothiazide, metoprolol, NovoLog, Prilosec, and simvastatin. FAMILY HISTORY: Significant for heart disease. SOCIAL HISTORY: Significant for social alcohol use. REVIEW OF SYSTEMS: 16 point review of systems otherwise reviewed and is noncontributory. PHYSICAL EXAMINATION: On examination, the patient is approximately 5 foot 7, 250 pounds of endomorphic habitus. HEENT exam is nonfocal. NECK: Supple. Passive motion right hip flexion 70 degrees, external rotation of the hip flexion 40 degrees, internal rotation 15 degrees with pain. Clinically, she has 1 cm shortening of the right lower extremity compared to the left. Her distal neurovascular exam appears intact in the right lower extremity. AP and lateral views of the right hip obtained in the office show severe osteoarthrosis with [id number] changes. IMPRESSION: 1. Right hip severe osteoarthrosis. 2. Non-insulin dependent diabetes. 3. History of coronary artery disease. 4. Thrombocytopenia. RECOMMENDATIONS: I talked to the patient at length regarding her condition along with treatment options. At this point, she is quite symptomatic and limited because of pain related to her osteoarthrosis. After thorough discussion, she opts to proceed with surgery. We will plan to proceed with right total hip arthroplasty utilizing a lateral approach. We will institute DVT prophylaxis postoperatively. Risks and benefits were discussed at length in layman's terms. MMODL / IJN: [id number] /
== END | disposition home or self-care (01) ==
LOC: LABPAT 15:14
PROVIDERS: ATTEND Orthopaedic Surgery
DX: Z01.818 Encounter for other preprocedural examination (principal); M16.11 Unilateral primary osteoarthritis, right hip; Z01.812 Encounter for preprocedural laboratory examination
CPT/HCPCS: 85610; 87070

== ENCOUNTER 2020-01-14 06:40 | Inpatient (IN) | payer BC, MEDICARE ==
[~2020-01-14 06:40] MED LIST: ACETAMINOPHEN TAB 500 MG TAB PO ONE; DEXAMETHASONE SOD PHOSPHATE 10 MG/ML 1 ML VIAL IV ONE; LIDOCAINE 1% (10MG/ML) FOR IV START INTRADERMA PRN; MELOXICAM 7.5 MG TAB PO ONE; MIDAZOLAM 2 MG/2 ML VIAL IV PRN; ONDANSETRON 4 MG/2 ML VIAL IVP ONE; TRANEXAMIC ACID 1,000 MG in SODIUM CHLORIDE 0.9% 100 ML IVPB ONE; fentaNYL (PF) 50 MCG/ML 2 ML AMP IVP PRN
[2020-01-14 07:46] LABS: Glucose,Whole Blood 177 mg/dL (75-99)
[2020-01-14] MEDS ORDERED: PROPOFOL 10 MG/ML 20 ML VIAL IV ONE (08:07)
[2020-01-14] MEDS ORDERED: MIDAZOLAM 2 MG/2 ML VIAL ONE (08:07)
[2020-01-14] MEDS ORDERED: fentaNYL (PF) 50 MCG/ML 2 ML AMP ONE (08:07)
[2020-01-14] MEDS: LACTATED RINGERS 1,000 ML IV SCH (08:09)
[2020-01-14] MEDS ORDERED: CLINDAMYCIN 150 MG/ML 4 ML VIAL IVPB ONE (08:37)
[2020-01-14] MEDS ORDERED: CLINDAMYCIN 1,800 MG in SODIUM CHLORIDE 0.9% IRRIGATIO 3,000 ML IRRIGATION ONE (08:53)
[2020-01-14] MEDS ORDERED: LACTATED RINGERS 1,000 ML IV ONE (09:38)
[2020-01-14] MEDS ORDERED: HYDROcodone/APAP 5-325MG 1 EACH TAB PO PRN (09:56)
[2020-01-14] MEDS ORDERED: MAGNESIUM HYDROXIDE 2,400 MG/10 ML CUP PO PRN (09:56)
[2020-01-14] MEDS ORDERED: NALOXONE 0.4 MG/ML 1 ML VIAL IV PRN (09:56)
--- NOTE | 2020-01-14 10:20 | P.OP ---
Date of Procedure: 01/14/20 Preoperative Diagnosis: Right hip severe osteoarthrosis Postoperative Diagnosis: Same Procedure(s) Performed: Right total hip arthroplastypress-fitlateral approach Implants: Depuy Corail size 11 standard collared femoral stem, 36 mm +5 cobalt chrome femoral head, 52 mm Carville acetabular shell with neutral polyethylene liner. Anesthesia: spinal Surgeon: Refugio Casillas Channeler Insole #1: Buck Flores Estimated Blood Loss (ml): 250 Pathology: other (Femoral head) Condition: stable Disposition: PACU Indications for Procedure: The patient's a 74-year-old female who presents with progressive right hip pain secondary to osteoarthrosis despite conservative measures. A discussion of the risks and benefits of operative intervention versus continued conservative measures was made with patient. She opted to proceed with surgery. Operative risks to include infection, neurovascular injury, fracture, leg length discrepancy, possible component loosening, possible instability, possible need for subsequent procedures was discussed. Informed consent was obtained. Operative Findings: As below Description of Procedure: The patient was brought to the operating room, and after induction of spinal anesthesia was placed in a lateral decubitus position. The bony prominences were appropriately padded. The pelvis was stable perpendicular to the floor with a pegboard. The right lower extremity was prepped and draped in normal fashion. A 12 cm incision was then made centered over the greater trochanter extending superiorly to level the ASIS and distally in line with the femoral shaft. The skin and subcutaneous tissues were divided sharply. Electrocautery was used for hemostasis. The fascia kacy and gluteus van fascia was split in line with the skin incision. The muscle fibers were bluntly dissected proximally. A self-retaining retractor was placed. The anterior and posterior margins of the gluteus medius muscles identified and the anterior two thirds was detached from the greater trochanter with electrocautery. The gluteus minimus tendon was identified and detached in a similar fashion. A wide capsulotomy was performed. The femoral neck fracture was identified in the lower neck cut was made approximately 1 1/2 cm above the level of the lesser trochanter with a sagittal saw at a 45 the shaft. The head was then extracted with a corkscrew. Attention was then paid towards preparing the acetabular. Anterior and posterior retractors were placed. The remaining capsular labral tissues debrided sharply clearly defining the acetabular margins. Began reaming with a 45 mm reamer taking care to initially medialize, then reaming at 45 of abduction and 20 of anteversion. Sequential reaming is performed up to 51 mm. This was down to bleeding bony surface. A trial 52 mm acetabular shell was inserted at 45 of abduction and 20 of anteversion. This was fully seated. There was good rim fit and stability. A neutral polyethylene liner was then impacted. Care taken to avoid any soft tissue interposition. Attention was then paid towards preparing the proximal femur. A box chisel was used to open the metaphyseal region. A canal finder was used to find the femoral canal. Sequential broaching was performed up to a size 11. This is placed in 15 of anteversion with the leg perpendicular floor judging off the trans-epicondylar axis. There is good rotational stability. A calcar mill was used to fashion the medial calcar. A trial standard neck along with a 36 mm +5 trial head was placed. The hip was gently reduced. It was taken through range of motion. I felt to be stable in flexion and extension with internal and external rotation. I felt there was adequate methodist of soft tissue tension. The hip was ge ntly dislocated. The trial components removed. Pulsatile lavage was utilized. The final size 11 standard collared femoral stem was inserted again with the leg perpendicular to the floor in 15 of anteversion. Again there was good rotational stability. A 36 mm +5 cobalt chrome femoral head was gently impacted. The hip was gently reduced. Again it was taken through motion and felt to be stable in flexion and extension with internal and external rotation. Pulsatile lavage was again utilized. With the leg in abduction the gluteus minimus and medius tendons reattached to the greater trochanter with #2 Ethibond suture. There was minimal drainage therefore a deep drain was not placed. The fascia kacy and gluteus van fascia was closed with #2 Ethibond suture. The subcutaneous tissues were reapproximated interrupted 2-0 Vicryl sutures. The skin was reapproximated with 3-0 subcuticular strata fix suture. Skin tape and adhesive was applied. A sterile dressing was applied. The patient was awoken from sedation and transferred to recovery room in good condition. Blood loss was estimated to 250 mL. No complications were incurred. Sponge and needle counts were correct in the case. Rajat RODRIGUEZ assisted during the major composes case to include exposure, implantation, and closure.
[2020-01-14 10:29] LABS: Glucose,Whole Blood 188 mg/dL (75-99)
--- NOTE | 2020-01-14 10:48 | XR ---
EXAMINATION TYPE: XR Hip Limited RT DATE OF EXAM: 01/14/2020 COMPARISON: None HISTORY: Postop right hip surgery TECHNIQUE: Single AP right hip FINDINGS: Femoral and acetabular components of in place from a right hip prosthesis. No acute fractur es are evident. Postsurgical soft tissue changes are evident. IMPRESSION: 1. No acute osseous abnormality post right hip replacement.
[2020-01-14] MEDS: HYDROmorphone 0.5 MG/0.5 ML SYRINGE IVP PRN ×2 (12:55→13:06)
[2020-01-14] MEDS: ONDANSETRON 4 MG/2 ML VIAL IVP PRN (12:57)
[2020-01-14] MEDS: GABAPENTIN 300 MG CAP PO SCH ×2 (16:05→22:29)
[2020-01-14] MEDS: CLINDAMYCIN 900 MG in DEXTROSE 5% IN WATER 50 ML IVPB SCH ×4 (16:06→23:37)
[2020-01-14 17:15] LABS: Glucose,Whole Blood 198 mg/dL (75-99)
--- NOTE | 2020-01-14 17:26 | P.CONS ---
History of Present Illness - Reason for Consult Consult date: 01/14/20 Medical management Requesting physician: Refugio Casillas - Chief Complaint Medical management - History of Present Illness 74-year-old female with PMH of diabetes mellitus, GERD, hypertension, dyslipidemia and B12 deficiency presents to [facility] for elective surgery. She underwent right total hip arthroplasty. [facility] physicians has been consulted for medical management of this patient. Patient was seen and examined after her procedure. Patient reports no pain in her right hip. She has not urinated or had a bowel movement since surgery. Patient states that she has not passed any gas. She denies any headache, lower extremity edema, nausea or vomiting, fever chills, cough, chest pain, shortness of breath, palpitations. No changes in appetite or weight. She denies any dizziness, numbness/weakness/tingling of the extremities. Review of Systems Pertinent positives and negatives as discussed in HPI, a complete review of systems was performed and all other systems are negative. Past Medical History Past Medical History: Diabetes Mellitus, GERD/Reflux, Hyperlipidemia, Hypertension, Osteoarthritis (OA) Additional Past Medical History / Comment(s): DIVERTICULITIS History of Any Multi-Drug Resistant Organisms: None Reported Past Surgical History: Cholecystectomy, Heart Catheterization With Stent, Tubal Ligation Additional Past Surgical History / Comment(s): LEFT ANKLE ORIF. BILATERAL KNEE REPLACEMENTS. 2 STENTS X 2. Past Anesthesia/Blood Transfusion Reactions: No Reported Reaction Date of Last Stent Placement:: UNKnown Past Psychological History: No Psychological Hx Reported Smoking Status: Never smoker Past Alcohol Use History: None Reported, Rare Past Drug Use History: None Reported - Past Family History Mother Additional Family Medical History / Comment(s): DIVERTICULITIS Medications and Allergies Home Medications Medication Instructions Recorded Confirmed Type Fenofibrate 160 mg PO DAILY 10/07/15 01/14/20 History Metoprolol Tartrate [Lopressor] 50 mg PO BID 10/07/15 01/14/20 History Omeprazole [PriLOSEC] 20 mg PO QAM 10/07/15 01/14/20 History Simvastatin [Zocor] 40 mg PO HS 10/07/15 01/14/20 History Ubidecarenone [Co Q-10] 200 mg PO QAM 10/07/15 01/14/20 History Ascorbic Acid [Vitamin C] 500 mg PO DAILY 02/22/18 01/14/20 History Cholecalciferol [Vitamin D3 (25 2,000 unit PO DAILY 02/22/18 01/14/20 History Mcg = 1000 Iu)] Cyanocobalamin (Vitamin B-12) 1,000 mcg PO DAILY 02/22/18 01/14/20 History [Vitamin B-12] Flaxseed Oil [[place]-3 Flaxseed Oil] 1,000 mg PO DAILY 02/22/18 01/14/20 History Folic Acid 0.4 mg PO DAILY 02/22/18 01/14/20 History Glucosamine-Chondr 500-400Mg 1 tab PO DAILY 02/22/18 01/14/20 History Multivitamins, Thera [Multivitamin 1 tab PO DAILY 02/22/18 01/14/20 History (formulary)] Lisinopril-Hctz 20-12.5 mg 1 tab PO BID #60 tab 02/27/18 01/14/20 Rx [Zestoretic 20-12.5] metFORMIN HCL [Glucophage] 500 mg PO BID-W/MEALS #60 tab 02/27/18 01/14/20 Rx Gabapentin [Neurontin] 600 mg PO TID 01/09/20 01/14/20 History Insulin Aspart Protam & Aspart 15 unit SQ BID 01/09/20 01/14/20 History [NovoLOG MIX 70-30 Flexpen] Naproxen Sodium [Aleve] 3 tab PO BID 01/09/20 01/14/20 History Allergies Allergy/AdvReac Type Severity Reaction Status Date / Time Penicillins Allergy Rash/Hives Verified 01/14/20 07:17 titanium Allergy Anaphylaxis. Verified 01/14/20 07:17 SLOUGHING OF SKIN Physical Exam Vitals: Vital Signs Temp Pulse Pulse Resp BP Pulse Ox 01/14/20 14:00 97.7 F 65 18 143/77 93 L 01/14/20 13:30 61 16 159/71 100 01/14/20 13:05 64 16 157/66 100 01/14/20 12:19 61 16 171/74 100 01/14/20 12:04 60 16 158/71 100 01/14/20 11:48 61 16 146/65 99 01/14/20 11:34 59 L 16 179/72 100 01/14/20 11:18 59 L 16 156/70 100 01/14/20 11:04 59 L 16 143/62 99 01/14/20 10:48 59 L 16 132/63 98 01/14/20 10:30 57 L 16 128/57 98 01/14/20 10:15 97.4 F L 62 12 124/59 99 01/14/20 08:07 205/91 01/14/20 07:24 97.7 F 73 20 226/88 95 Intake and Output 01/14/20 01/14/20 01/14/20 06:59 14:59 22:59 Intake Total 1401 Output Total 250 Balance 1151 Intake: IV 1401 Output: Estimated Blood Loss 250 Other: Weight 110.6 kg General: [non toxic], [no distress], [appears at stated age] Derm: [warm], [dry] Head: [atraumatic], [normocephalic], [symmetric] Eyes: [EOMI], [no lid lag], [anicteric sclera] Mouth: [no lip lesion], [mucus membranes moist] Cardiovascular: [S1S2 reg], [no murmur], [positive DP pulse bilateral], Lungs: [Decreased breath sounds bilateral], [no rhonchi, no rales] , [no accessory muscle use] Abdominal: [soft], [ nontender to palpation], [no guarding], [no appreciable organomegaly] Ext: [no gross muscle atrophy], [no edema], [no contractures], restricted range of motion in the right hip due to pain with dressing clean dry and intact Neuro: [no focal neuro deficits] Psych: [Alert], [oriented], [appropriate affect] Results Labs: Abnormal Lab Results - Last 24 Hours (Table) 01/14/20 01/14/20 01/14/20 Range/Units 07:45 10:27 17:13 POC Glucose (mg/dL) 177 H 188 H 198 H (75-99) mg/dL Assessment and Plan Assessment: Diabetes mellitus with hyperglycemia Hypertension GERD Dyslipidemia Obesity with BMI 30.2 Zioxv-eq-ufah glucose 198. Plans: Start insulin sliding scale. Regular Accu- Cheks. Hypoglycemic precautions. BP 143/77. Plans: Restart hydrochlorothiazide and lisinopril. Plans: Restart Protonix. Plans: Restart fenofibrate. Plans: Patient will benefit from a structured weight loss program. Patient names her son and daughter decision maker if she can't make decisions for herself. Patient would like to be full code. Thank you for this consult. Please call with any additional questions or concerns.
[2020-01-14] MEDS: ACETAMINOPHEN TAB 325 MG TAB PO PRN (17:47)
[2020-01-14] MEDS: INSULIN ASPART (NovoLOG) 100 UNIT/ML VIAL SQ SCH ×2 (17:49→21:16)
[2020-01-14] MEDS: HYDROmorphone 1 MG/ML 1 ML SYRINGE IVP PRN (19:07)
[2020-01-14] MEDS: SENNOSIDES-DOCUSATE SODIUM 1 EACH TAB PO SCH (20:08)
[2020-01-14] MEDS: METOPROLOL TARTRATE 50 MG TAB PO SCH (20:08)
[2020-01-14] MEDS: ATORVASTATIN 20 MG TAB PO SCH (20:08)
[2020-01-14] MEDS: LISINOPRIL-HCTZ 20-12.5 MG 1 EACH TAB PO SCH (20:08)
[2020-01-14 20:55] LABS: Glucose,Whole Blood 193 mg/dL (75-99)
[2020-01-15] MEDS: HYDROcodone/APAP 5-325MG 1 EACH TAB PO PRN ×2 (04:42→10:17)
[2020-01-15 06:59] LABS: Glucose,Whole Blood 195 mg/dL (75-99)
[2020-01-15] MEDS: LACTATED RINGERS 1,000 ML IV SCH (07:19)
[2020-01-15] MEDS: INSULIN ASPART (NovoLOG) 100 UNIT/ML VIAL SQ SCH ×4 (07:53→22:11)
[2020-01-15] MEDS: RIVAROXABAN 10 MG TAB PO SCH (07:53)
[2020-01-15] MEDS: METOPROLOL TARTRATE 50 MG TAB PO SCH ×2 (07:53→22:09)
[2020-01-15] MEDS: FENOFIBRATE 160 MG TAB PO SCH (07:54)
[2020-01-15] MEDS: GABAPENTIN 300 MG CAP PO SCH ×3 (07:54→23:15)
[2020-01-15] MEDS: PANTOPRAZOLE 40 MG TABLET PO SCH (07:54)
[2020-01-15] MEDS: LISINOPRIL-HCTZ 20-12.5 MG 1 EACH TAB PO SCH ×2 (07:55→22:08)
[2020-01-15 07:58] LABS: Basophils # (A) 0.1 k/uL (0-0.2); Basophils % (A) 1 %; Eosinophils # (A) 0.1 k/uL (0-0.7); Eosinophils % (A) 1 %; HCT 27.4 % (34.0-46.0); Hypochromasia Slight; Lymphocytes # (A) 0.9 k/uL (1.0-4.8); Lymphocytes % (A) 9 %; MCH 30.5 pg (25.0-35.0); MCHC 32.2 g/dL (31.0-37.0); MCV 94.9 fL (80.0-100.0); Mean Platelet Volume 10.9; Monocytes # (A) 1.7 k/uL (0-1.0); Monocytes % (A) 17 %; Neutrophils # (A) 6.8 k/uL (1.3-7.7); Neutrophils % (A) 67 %; Platelet Count 113 k/uL (150-450); RBC 2.89 m/uL (3.80-5.40); RDW 15.1 % (11.5-15.5)
[2020-01-15 08:05] LABS: HGB 8.8 gm/dL (11.4-16.0)
--- NOTE | 2020-01-15 09:57 | P.PN ---
Subjective Progress Note Date: 01/15/20 Principal diagnosis: Status post right total hip arthroplasty Patient evaluated at bedside, she is resting comfortably. She did discuss physical therapy, she did very difficult time getting to the bathroom. She did have some nausea. She denies any chest pain or shortness of breath. Objective - Vital Signs Vital signs: Vital Signs Temp 98.3 F 01/15/20 07:00 Pulse 79 01/15/20 07:00 Resp 18 01/15/20 07:00 BP 135/75 01/15/20 07:00 Pulse Ox 94 L 01/15/20 07:00 Intake & Output 01/14/20 01/15/20 01/15/20 18:59 06:59 18:59 Intake Total 1401 400 Output Total 250 800 Balance 1151 -400 Weight 110.6 kg Intake: IV 1401 Intake, IV Titration 400 Amount Lactated Ringers 1,000 ml 400 @ 20 mls/hr IV .Q24H [facility] Rx#:[id number] Output: Urine 800 Estimated Blood Loss 250 Other: # Voids 1 - Exam Right lower extremity: Incision is clean, dry, and intact. The exofin fusion tape is in good condition. There is minimal soft tissue swelling and ecchymosis surrounding the medial and lateral aspects of the incision. Calf is soft, no tenderness with palpation. Plantar flexion, dorsiflexion, EHL, FHL are intact. Sensory exam to light touch throughout the extremity is intact, dorsal pedis pulses 2+. - Labs CBC & Chem 7: 01/15/20 07:08 Labs: Abnormal Lab Results - Last 24 Hours (Table) 01/14/20 01/14/20 01/14/20 Range/Units 10:27 17:13 20:54 RBC (3.80-5.40) m/uL Hgb (11.4-16.0) gm/dL Hct (34.0-46.0) % Plt Count (150-450) k/uL Lymphocytes # (1.0-4.8) k/uL Monocytes # (0-1.0) k/uL POC Glucose (mg/dL) 188 H 198 H 193 H (75-99) mg/dL 01/15/20 01/15/20 Range/Units 06:57 07:08 RBC 2.89 L (3.80-5.40) m/uL Hgb 8.8 L D (11.4-16.0) gm/dL Hct 27.4 L (34.0-46.0) % Plt Count 113 L (150-450) k/uL Lymphocytes # 0.9 L (1.0-4.8) k/uL Monocytes # 1.7 H (0-1.0) k/uL POC Glucose (mg/dL) 195 H (75-99) mg/dL Assessment and Plan Assessment: Status post right total hip arthroplasty Plan: Pain control, continue oral medication. Advised patient she'll have nausea if she continues to use IV and oral without eating GI and DVT prophylaxis, continue current medication Daily dressing changes/ice the hip often Continue physical therapy If hemoglobin drops below 8.2, plan for transfusion of 1 unit of packed RBCs Medical recommendations Further recommendations to follow
[2020-01-15 11:51] LABS: Glucose,Whole Blood 316 mg/dL (75-99)
--- NOTE | 2020-01-15 15:04 | P.PN ---
Subjective Progress Note Date: 01/15/20 Patient was seen and examined. No acute events overnight. Patient reports 3 out of 10 severity pain in her right hip especially with movement. Feeling too weak to work with physical therapy. Patient and family concerned about tremor this morning. Patient reports tremor that started 2-3 days ago. Tremor is only with intention. No tremor at rest. Objective - Vital Signs Vital signs: Vital Signs Temp 98.3 F 01/15/20 07:00 Pulse 79 01/15/20 07:00 Resp 18 01/15/20 07:00 BP 135/75 01/15/20 07:00 Pulse Ox 94 L 01/15/20 07:00 Intake & Output 01/14/20 01/15/20 01/15/20 18:59 06:59 18:59 Intake Total 1401 400 Output Total 250 800 Balance 1151 -400 Weight 110.6 kg 110.6 kg Intake: IV 1401 Intake, IV Titration 400 Amount Lactated Ringers 1,000 ml 400 @ 20 mls/hr IV .Q24H [facility] Rx#:[id number] Output: Urine 800 Estimated Blood Loss 250 Other: # Voids 1 - Exam General: [non toxic], [no distress], [appears at stated age] Derm: [warm], [dry] Head: [atraumatic], [normocephalic], [symmetric] Eyes: [EOMI], [no lid lag], [anicteric sclera] Mouth: [no lip lesion], [mucus membranes moist] Cardiovascular: [S1S2 reg], [no murmur], [positive DP pulse bilateral], Lungs: [Decreased breath sounds bilateral], [no rhonchi, no rales] , [no accessory muscle use] Abdominal: [soft], [ nontender to palpation], [no guarding], [no appreciable organomegaly] Ext: [no gross muscle atrophy], [no edema], [no contractures] Neuro: [no focal neuro deficits], tremor with intention Psych: [Alert], [oriented], [appropriate affect] - Labs CBC & Chem 7: 01/15/20 07:08 Labs: Abnormal Lab Results - Last 24 Hours (Table) 01/14/20 01/14/20 01/15/20 Range/Units 17:13 20:54 06:57 RBC (3.80-5.40) m/uL Hgb (11.4-16.0) gm/dL Hct (34.0-46.0) % Plt Count (150-450) k/uL Lymphocytes # (1.0-4.8) k/uL Monocytes # (0-1.0) k/uL POC Glucose (mg/dL) 198 H 193 H 195 H (75-99) mg/dL 01/15/20 01/15/20 Range/Units 07:08 11:49 RBC 2.89 L (3.80-5.40) m/uL Hgb 8.8 L D (11.4-16.0) gm/dL Hct 27.4 L (34.0-46.0) % Plt Count 113 L (150-450) k/uL Lymphocytes # 0.9 L (1.0-4.8) k/uL Monocytes # 1.7 H (0-1.0) k/uL POC Glucose (mg/dL) 316 H (75-99) mg/dL Assessment and Plan Assessment: Tremor Acute blood loss anemia Diabetes mellitus with hyperglycemia Hypertension GERD Dyslipidemia Obesity with BMI 30.2 Likely intention. Plans: Would advise against treatment as this has only been going on for 2-3 days. Patient will need to follow-up in the outpatient setting for neurology evaluation and to rule out Parkinson's. Hemoglobin 8.8. Plans: Transfuse if hemoglobin less than 7. Repeat CBC tomorrow morning. Fzxrd-im-tulo glucose 316. Plans: Start insulin sliding scale. Regular Accu- Cheks. Hypoglycemic precautions. Restart home dose of insulin. BP 135/75. Plans: Restart hydrochlorothiazide and lisinopril. Plans: Restart Protonix. Plans: Restart fenofibrate. Plans: Patient will benefit from a structured weight loss program. Patient names her son and daughter decision maker if she can't make decisions for herself. Patient would like to be full code. Thank you for this consult. Please call with any additional questions or concerns.
[2020-01-15] MEDS: HYDROcodone/APAP 7.5-325MG 1 EACH TAB PO PRN (15:16)
[2020-01-15 16:41] LABS: Glucose,Whole Blood 228 mg/dL (75-99)
--- NOTE | 2020-01-15 16:43 | XR ---
EXAMINATION TYPE: XR chest 1V portable DATE OF EXAM: 01/15/2020 COMPARISON: NONE HISTORY: Fever TECHNIQUE: Single frontal view of the chest is obtained. FINDINGS: Arthropathy of the shoulders with bilateral lower lobe infiltrate and small effusion. Hear t enlarged. No pneumothorax. Biapical pleural thickening. Coarsened central interstitium. Degenerativ e change of the spine IMPRESSION: 1. Bilateral lower lobe infiltrate and small effusion correlate for pneumonia, otherwise consider CHF .
[2020-01-15] MEDS ORDERED: FUROSEMIDE 10 MG/ML 4 ML VIAL IV STA (17:29)
[2020-01-15] MEDS ORDERED: LEVOFLOXACIN 750MG-D5W PMX 750 MG in DEXTROSE/WATER 1 150ML.BAG IVPB SCH (18:00)
[2020-01-15 18:08] LABS: HCT 28.7 % (34.0-46.0); Hypochromasia Slight; MCH 30.3 pg (25.0-35.0); MCHC 31.5 g/dL (31.0-37.0); MCV 96.3 fL (80.0-100.0); Mean Platelet Volume 11.9; Platelet Count 125 k/uL (150-450); RBC 2.98 m/uL (3.80-5.40); WBC 12.7 k/uL (3.8-10.6)
[2020-01-15 19:04] LABS: Lymphocytes # (M) 0.76 k/uL (1.0-4.8); Monocytes # (M) 1.65 k/uL (0-1.0); Neutrophils # (M) 10.29 k/uL (1.3-7.7); Neutrophils % (M) 81 %; Nucleated Red Blood Cells 0 /100 WBC (0-0); Total Cells Counted 100
[2020-01-15 21:13] LABS: Glucose,Whole Blood 247 mg/dL (75-99)
[2020-01-15] MEDS: SENNOSIDES-DOCUSATE SODIUM 1 EACH TAB PO SCH (22:09)
[2020-01-15] MEDS: ATORVASTATIN 20 MG TAB PO SCH (22:09)
[2020-01-15] MEDS: INSULN ASP PRT/INSULIN ASPART 100 UNIT/ML 10 ML VIAL SQ SCH (22:10)
[2020-01-16] MEDS: HYDROcodone/APAP 7.5-325MG 1 EACH TAB PO PRN ×4 (01:17→22:56)
[2020-01-16] MEDS: LACTATED RINGERS 1,000 ML IV SCH (06:37)
[2020-01-16 06:49] LABS: Glucose,Whole Blood 213 mg/dL (75-99)
[2020-01-16] MEDS: INSULIN ASPART (NovoLOG) 100 UNIT/ML VIAL SQ SCH ×4 (07:44→20:24)
[2020-01-16] MEDS: PANTOPRAZOLE 40 MG TABLET PO SCH (09:15)
[2020-01-16] MEDS: FENOFIBRATE 160 MG TAB PO SCH (09:16)
[2020-01-16] MEDS: RIVAROXABAN 10 MG TAB PO SCH (09:16)
[2020-01-16] MEDS: METOPROLOL TARTRATE 50 MG TAB PO SCH ×2 (09:16→20:24)
[2020-01-16] MEDS: LISINOPRIL-HCTZ 20-12.5 MG 1 EACH TAB PO SCH (09:16)
[2020-01-16] MEDS: GABAPENTIN 300 MG CAP PO SCH ×3 (09:17→21:13)
[2020-01-16] MEDS: INSULN ASP PRT/INSULIN ASPART 100 UNIT/ML 10 ML VIAL SQ SCH ×2 (09:19→20:23)
[2020-01-16 09:43] LABS: Calcium 8.9 mg/dL (8.4-10.2); Potassium 4.6 mmol/L (3.5-5.1)
[2020-01-16 10:11] LABS: HCT 25.7 % (34.0-46.0); HGB 7.9 gm/dL (11.4-16.0); Hypochromasia Slight; MCH 29.4 pg (25.0-35.0); MCHC 30.8 g/dL (31.0-37.0); MCV 95.4 fL (80.0-100.0); Mean Platelet Volume 12.4; Platelet Count 100 k/uL (150-450); RBC 2.69 m/uL (3.80-5.40); WBC 10.8 k/uL (3.8-10.6)
[2020-01-16] MEDS ORDERED: FUROSEMIDE 10 MG/ML 4 ML VIAL IV STA (10:37)
[2020-01-16 10:46] LABS: Lymphocytes # (M) 0.76 k/uL (1.0-4.8); Monocytes # (M) 3.13 k/uL (0-1.0); Neutrophils # (M) 6.91 k/uL (1.3-7.7); Neutrophils % (M) 64 %; Nucleated Red Blood Cells 0 /100 WBC (0-0); Total Cells Counted 100
[2020-01-16 10:47] LABS: Polychromasia Present
[2020-01-16 11:37] LABS: Glucose,Whole Blood 247 mg/dL (75-99)
[2020-01-16] MEDS: ACETAMINOPHEN TAB 325 MG TAB PO PRN (11:38)
[2020-01-16] MEDS ORDERED: SODIUM CHLORIDE 0.9% 500 ML 500 ML IV ONE (12:51)
--- NOTE | 2020-01-16 13:10 | P.PN ---
Subjective Progress Note Date: 01/16/20 Patient was seen and examined. Yesterday, patient spiked a fever. CBC showed leukocytosis of 12.7. Blood cultures were ordered. Chest x-ray showed bilateral lower lobe infiltrate, pneumonia versus CHF. Patient reports intense weakness since her admission. She denies any dysuria. She denies any cough. She denies any abdominal pain. No chest pain, shortness of breath or palpitations. Objective - Vital Signs Vital signs: Vital Signs Temp 96.4 F L 01/16/20 12:12 Pulse 73 01/16/20 12:12 Resp 14 01/16/20 12:12 BP 96/49 01/16/20 12:12 Pulse Ox 97 01/16/20 08:02 Intake & Output 01/15/20 01/16/20 01/16/20 18:59 06:59 18:59 Intake Total 160 Output Total 500 210 400 Balance -340 -210 -400 Weight 110.6 kg Intake: Intake, IV Titration 160 Amount Lactated Ringers 1,000 ml 160 @ 20 mls/hr IV .Q24H [facility] Rx#:[id number] Output: Urine 500 210 400 Other: # Voids 1 210 1 - Exam General: [non toxic], [no distress], [appears at stated age] Derm: [warm], [dry] Head: [atraumatic], [normocephalic], [symmetric] Eyes: [EOMI], [no lid lag], [anicteric sclera] Mouth: [no lip lesion], [mucus membranes moist] Cardiovascular: [S1S2 reg], [no murmur], [positive DP pulse bilateral], Lungs: [Decreased breath sounds bilateral], [no rhonchi, no rales] , [no accessory muscle use] Abdominal: [soft], [ nontender to palpation], [no guarding], [no appreciable organomegaly] Ext: [no gross muscle atrophy], [no edema], [no contractures] Neuro: [no focal neuro deficits], tremor with intention Psych: [Alert], [oriented], [appropriate affect] - Labs CBC & Chem 7: 01/16/20 08:12 01/16/20 08:47 Labs: Abnormal Lab Results - Last 24 Hours (Table) 01/15/20 01/15/20 01/15/20 Range/Units 16:23 16:40 21:12 WBC 12.7 H (3.8-10.6) k/uL RBC 2.98 L (3.80-5.40) m/uL Hgb 9.0 L (11.4-16.0) gm/dL Hct 28.7 L (34.0-46.0) % MCHC (31.0-37.0) g/dL Plt Count 125 L (150-450) k/uL Neutrophils # (Manual) 10.29 H (1.3-7.7) k/uL Lymphocytes # (Manual) 0.76 L (1.0-4.8) k/uL Monocytes # (Manual) 1.65 H (0-1.0) k/uL Sodium (137-145) mmol/L BUN (7-17) mg/dL Creatinine (0.52-1.04) mg/dL Glucose (74-99) mg/dL POC Glucose (mg/dL) 228 H 247 H (75-99) mg/dL 01/16/20 01/16/20 01/16/20 Range/Units 06:47 08:12 08:47 WBC 10.8 H (3.8-10.6) k/uL RBC 2.69 L (3.80-5.40) m/uL Hgb 7.9 L (11.4-16.0) gm/dL Hct 25.7 L (34.0-46.0) % MCHC 30.8 L (31.0-37.0) g/dL Plt Count 100 L (150-450) k/uL Neutrophils # (Manual) (1.3-7.7) k/uL Lymphocytes # (Manual) 0.76 L (1.0-4.8) k/uL Monocytes # (Manual) 3.13 H (0-1.0) k/uL Sodium 133 L (137-145) mmol/L BUN 42 H (7-17) mg/dL Creatinine 1.81 H (0.52-1.04) mg/dL Glucose 210 H (74-99) mg/dL POC Glucose (mg/dL) 213 H (75-99) mg/dL 01/16/20 Range/Units 11:34 WBC (3.8-10.6) k/uL RBC (3.80-5.40) m/uL Hgb (11.4-16.0) gm/dL Hct (34.0-46.0) % MCHC (31.0-37.0) g/dL Plt Count (150-450) k/uL Neutrophils # (Manual) (1.3-7.7) k/uL Lymphocytes # (Manual) (1.0-4.8) k/uL Monocytes # (Manual) (0-1.0) k/uL Sodium (137-145) mmol/L BUN (7-17) mg/dL Creatinine (0.52-1.04) mg/dL Glucose (74-99) mg/dL POC Glucose (mg/dL) 247 H (75-99) mg/dL Assessment and Plan Assessment: SIRS Acute kidney injury Acute blood loss anemia Diabetes mellitus with hyperglycemia Hypotension GERD Dyslipidemia Obesity with BMI 30.2 Patient meet SIRS criteria with fever, leukocytosis, hypertension. Chest x-ray showing bilateral pneumonia versus CHF. Plans: Bolus 500 mL. Continue Levaquin IV. Follow blood cultures. Follow urinalysis. Follow pro-calcitonin. Follow lactic acid. Follow ID consultation. Creatinine 1.81. Plans: Avoid nephrotoxins. Repeat BMP tomorrow morning. Hemoglobin 7.9. Plans: Transfuse if hemoglobin less than 7. Will defer to orthopedic surgery for blood transfusion. Repeat CBC tomorrow morning. Ervtn-ge-dsho glucose 247. Plans: Start insulin sliding scale. Regular Accu- Cheks. Hypoglycemic precautions. Restart home dose of insulin. BP 96/49. Plans: Discontinued hydrochlorothiazide and lisinopril. Plans: Restart Protonix. Plans: Restart fenofibrate. Plans: Patient will benefit from a structured weight loss program. Patient names her son and daughter decision maker if she can't make decisions for herself. Patient would like to be full code. Thank you for this consult. Please call with any additional questions or concerns.
[2020-01-16 15:16] LABS: Appearance,Urine Cloudy (Clear); Bacteria,Urine Occasional /hpf; Bilirubin,Urine Negative (Negative); Blood,Urine Negative (Negative); Color,Urine Yellow; Glucose,Urine (UA) Negative (Negative); Hyaline Casts,Urine 3 /lpf (0-2); Ketones,Urine Negative (Negative); Leukocyte Esterase,Urine Large (Negative); Mucus,Urine Rare /hpf; Nitrite,Urine Negative (Negative); Protein,Urine Negative (Negative); RBC,Urine 3 /hpf (0-5); Specific Gravity,Urine 1.013 (1.001-1.035); Squamous Epithelial Cell,Urine 6 /hpf (0-4); Urobilinogen,Urine <2.0 mg/dL (<2.0); WBC,Urine 88 /hpf (0-5)
--- NOTE | 2020-01-16 15:17 | P.PN ---
Subjective Progress Note Date: 01/16/20 Principal diagnosis: Status post right total hip arthroplasty Patient evaluated at bedside, she is sleeping upon arrival. There is family members present. According to the family, patient is seen very fatigued today. Objective - Vital Signs Vital signs: Vital Signs Temp 98.2 F 01/16/20 14:18 Pulse 71 01/16/20 14:18 Resp 17 01/16/20 14:18 BP 118/70 01/16/20 14:18 Pulse Ox 96 01/16/20 14:18 Intake & Output 01/15/20 01/16/20 01/16/20 18:59 06:59 18:59 Intake Total 160 Output Total 500 210 400 Balance -340 -210 -400 Weight 110.6 kg Intake: Intake, IV Titration 160 Amount Lactated Ringers 1,000 ml 160 @ 20 mls/hr IV .Q24H DAVY Rx#:[id number] Output: Urine 500 210 400 Other: Voiding Method Bedside Commode # Voids 1 210 1 - Exam Right lower extremity: Incision is clean, dry, and intact. The exofin fusion tape is in good condition. There is minimal soft tissue swelling and ecchymosis surrounding the medial and lateral aspects of the incision. Calf is soft, no tenderness with palpation. Plantar flexion, dorsiflexion, EHL, FHL are intact. Sensory exam to light touch throughout the extremity is intact, dorsal pedis pulses 2+. - Labs CBC & Chem 7: 01/16/20 08:12 01/16/20 08:47 Labs: Abnormal Lab Results - Last 24 Hours (Table) 01/15/20 01/15/20 01/15/20 Range/Units 16:23 16:40 21:12 WBC 12.7 H (3.8-10.6) k/uL RBC 2.98 L (3.80-5.40) m/uL Hgb 9.0 L (11.4-16.0) gm/dL Hct 28.7 L (34.0-46.0) % MCHC (31.0-37.0) g/dL Plt Count 125 L (150-450) k/uL Neutrophils # (Manual) 10.29 H (1.3-7.7) k/uL Lymphocytes # (Manual) 0.76 L (1.0-4.8) k/uL Monocytes # (Manual) 1.65 H (0-1.0) k/uL Sodium (137-145) mmol/L BUN (7-17) mg/dL Creatinine (0.52-1.04) mg/dL Glucose (74-99) mg/dL POC Glucose (mg/dL) 228 H 247 H (75-99) mg/dL 01/16/20 01/16/20 01/16/20 Range/Units 06:47 08:12 08:47 WBC 10.8 H (3.8-10.6) k/uL RBC 2.69 L (3.80-5.40) m/uL Hgb 7.9 L (11.4-16.0) gm/dL Hct 25.7 L (34.0-46.0) % MCHC 30.8 L (31.0-37.0) g/dL Plt Count 100 L (150-450) k/uL Neutrophils # (Manual) (1.3-7.7) k/uL Lymphocytes # (Manual) 0.76 L (1.0-4.8) k/uL Monocytes # (Manual) 3.13 H (0-1.0) k/uL Sodium 133 L (137-145) mmol/L BUN 42 H (7-17) mg/dL Creatinine 1.81 H (0.52-1.04) mg/dL Glucose 210 H (74-99) mg/dL POC Glucose (mg/dL) 213 H (75-99) mg/dL 01/16/20 Range/Units 11:34 WBC (3.8-10.6) k/uL RBC (3.80-5.40) m/uL Hgb (11.4-16.0) gm/dL Hct (34.0-46.0) % MCHC (31.0-37.0) g/dL Plt Count (150-450) k/uL Neutrophils # (Manual) (1.3-7.7) k/uL Lymphocytes # (Manual) (1.0-4.8) k/uL Monocytes # (Manual) (0-1.0) k/uL Sodium (137-145) mmol/L BUN (7-17) mg/dL Creatinine (0.52-1.04) mg/dL Glucose (74-99) mg/dL POC Glucose (mg/dL) 247 H (75-99) mg/dL Assessment and Plan Assessment: Status post right total hip arthroplasty Plan: Pain control, continue oral medication. GI and DVT prophylaxis, continue current medication Daily dressing changes/ice the hip often Continue physical therapy Medical recommendations We'll check CBC in the morning, hemoglobin hasn't improved since 7.9, plan for transfusion of likely one unit. Internal medicine's consult infectious disease with regards to possible sepsis concerns, we'll discuss with them the po ssibility of transfusion Further recommendations to follow Time with Patient: Less than 30
--- NOTE | 2020-01-16 16:01 | XR ---
EXAMINATION TYPE: XR chest 1V portable DATE OF EXAM: 01/16/2020 COMPARISON: 01/25/2020 HISTORY: Cough possible pneumonia TECHNIQUE: Single frontal view of the chest is obtained. FINDINGS: Severe arthropathy of the shoulders. There is basilar subsegmental consolidation bilateral ly which is noticeably improved. Linear changes involving the upper lobes most typical scar or atelec tasis and there is mild thickening of the minor fissure. Heart size stable. No pneumothorax. Biapical pleural thickening IMPRESSION: 1. Improving bilateral lower lobe infiltrate and small effusion correlate for improving pneumonia.
[2020-01-16 16:30] LABS: Glucose,Whole Blood 249 mg/dL (75-99)
[2020-01-16 17:02] LABS: Hemoglobin A1C 6.8 % (4.0-6.0)
[2020-01-16 20:12] LABS: Glucose,Whole Blood 227 mg/dL (75-99)
[2020-01-16] MEDS: ATORVASTATIN 20 MG TAB PO SCH (20:24)
[2020-01-16] MEDS: SENNOSIDES-DOCUSATE SODIUM 1 EACH TAB PO SCH (20:24)
[2020-01-16 20:41] LABS: HCT 23.2 % (34.0-46.0); HGB 7.3 gm/dL (11.4-16.0); Hypochromasia Slight; MCH 29.9 pg (25.0-35.0); MCHC 31.4 g/dL (31.0-37.0); MCV 95.3 fL (80.0-100.0); Mean Platelet Volume 10.3; Platelet Count 100 k/uL (150-450); RBC 2.43 m/uL (3.80-5.40); RDW 15.1 % (11.5-15.5); WBC 9.9 k/uL (3.8-10.6)
--- NOTE | 2020-01-16 23:23 | P.CONS ---
History of Present Illness - Reason for Consult Consult date: 01/16/20 Fever Requesting physician: Bacilio Greene - Chief Complaint Fever 1 day - History of Present Illness Patient is 74-year-old female who was electively admitted to the hospital on 01/14/2024 right total hip arthroplasty this patient did have right hip severe osteoporosis, patient denies having any fever or chills or any respiratory or urinary symptoms before presentation hospital the patient was afebrile on the day of surgery however the patient did spike a fever of 102F last evening postop day 1 and she also have elevated white count in the morning of 12,000,, patient did have a chest x-ray previous study which was bilateral lower lobe infiltrate and small effusion correlate for pneumonia otherwise CHF UA was positive as well, to 60s adequately treated issues including bilateral lower lobe infiltrate and spine fusion correlate for improving the morning patient has been empirically treated with Levaquin because of her penicillin ALLERGY infection was considered if further management and consult for possible pneumonitis, the patient currently denies having any fever and chills no fever has been recorded today denies having headache or URI symptoms no chest pain shortness of breath on Rocephin covers production. Denies any nausea no vomitin g no bone pain no diarrhea and no significant urine symptom complaining of pain to the right hip though some improvement with the pain medication Review of Systems Positive point has been mentioned in the HPI rest of the systems are negative Past Medical History Past Medical History: Diabetes Mellitus, GERD/Reflux, Hyperlipidemia, Hypertension, Osteoarthritis (OA) Additional Past Medical History / Comment(s): DIVERTICULITIS History of Any Multi-Drug Resistant Organisms: None Reported Past Surgical History: Cholecystectomy, Heart Catheterization With Stent, Tubal Ligation Additional Past Surgical History / Comment(s): LEFT ANKLE ORIF. BILATERAL KNEE REPLACEMENTS. 2 STENTS X 2. Past Anesthesia/Blood Transfusion Reactions: No Reported Reaction Date of Last Stent Placement:: UNKnown Past Psychological History: No Psychological Hx Reported Smoking Status: Never smoker Past Alcohol Use History: None Reported, Rare Past Drug Use History: None Reported - Past Family History Mother Additional Family Medical History / Comment(s): DIVERTICULITIS Medications and Allergies Home Medications Medication Instructions Recorded Confirmed Type Fenofibrate 160 mg PO DAILY 10/07/15 01/14/20 History Metoprolol Tartrate [Lopressor] 50 mg PO BID 10/07/15 01/14/20 History Omeprazole [PriLOSEC] 20 mg PO QAM 10/07/15 01/14/20 History Simvastatin [Zocor] 40 mg PO HS 10/07/15 01/14/20 History Ubidecarenone [Co Q-10] 200 mg PO QAM 10/07/15 01/14/20 History Ascorbic Acid [Vitamin C] 500 mg PO DAILY 02/22/18 01/14/20 History Cholecalciferol [Vitamin D3 (25 2,000 unit PO DAILY 02/22/18 01/14/20 History Mcg = 1000 Iu)] Cyanocobalamin (Vitamin B-12) 1,000 mcg PO DAILY 02/22/18 01/14/20 History [Vitamin B-12] Flaxseed Oil [[place]-3 Flaxseed Oil] 1,000 mg PO DAILY 02/22/18 01/14/20 History Folic Acid 0.4 mg PO DAILY 02/22/18 01/14/20 History Glucosamine-Chondr 500-400Mg 1 tab PO DAILY 02/22/18 01/14/20 History Multivitamins, Thera [Multivitamin 1 tab PO DAILY 02/22/18 01/14/20 History (formulary)] Lisinopril-Hctz 20-12.5 mg 1 tab PO BID #60 tab 02/27/18 01/14/20 Rx [Zestoretic 20-12.5] metFORMIN HCL [Glucophage] 500 mg PO BID-W/MEALS #60 tab 02/27/18 01/14/20 Rx Gabapentin [Neurontin] 600 mg PO TID 01/09/20 01/14/20 History Insulin Aspart Protam & Aspart 15 unit SQ BID 01/09/20 01/14/20 History [NovoLOG MIX 70-30 Flexpen] Naproxen Sodium [Aleve] 3 tab PO BID 01/09/20 01/14/20 History Allergies Allergy/AdvReac Type Severity Reaction Status Date / Time Penicillins Allergy Rash/Hives Verified 01/14/20 07:17 titanium Allergy Anaphylaxis. Verified 01/14/20 07:17 SLOUGHING OF SKIN Physical Exam Vitals: Vital Signs Temp Pulse Pulse Resp BP BP Pulse Ox 01/16/20 14:18 98.2 F 71 17 118/70 96 01/16/20 13:00 73 14 01/16/20 12:12 96.4 F L 73 14 96/49 01/16/20 08:09 109/60 01/16/20 08:04 125/57 01/16/20 08:02 96.8 F L 75 16 97 01/16/20 01:00 97.8 F 71 18 119/71 97 01/15/20 23:17 18 01/15/20 20:59 98.4 F 80 16 112/68 99 01/15/20 20:56 98.4 F 16 01/15/20 19:35 99.1 F 80 18 110/67 95 01/15/20 19:30 18 Intake and Output 01/16/20 01/16/20 01/16/20 06:59 14:59 22:59 Output Total 400 Balance -400 Output: Urine 400 Other: Voiding Method Bedside Commode # Voids 1 GENERAL DESCRIPTION: Elderly female lying in bed, no distress. No tachypnea or accessory muscle of respiration use. HEENT: Shows Pallor , no scleral icterus. Oral mucous membrane is dry. No pharyngeal erythema or thrush NECK: Trachea central, no thyromegaly. LUNGS: Unlabored breathing. Decreased breath sounds at the base. No wheeze or crackle. HEART: S1, S2, regular rate and rhythm. No loud murmur ABDOMEN: Soft, no tenderness , guarding or rigidity, no organomegaly EXTREMITIES: No edema of feet. SKIN: No rash, no masses palpable. NEUROLOGICAL: The patient is awake, alert, oriented x3, mood and affect normal. Results CBC & Chem 7: 01/16/20 20:18 01/16/20 08:47 Labs: Abnormal Lab Results - Last 24 Hours (Table) 01/15/20 01/15/20 01/15/20 Range/Units 16:23 16:40 21:12 WBC 12.7 H (3.8-10.6) k/uL RBC 2.98 L (3.80-5.40) m/uL Hgb 9.0 L (11.4-16.0) gm/dL Hct 28.7 L (34.0-46.0) % MCHC (31.0-37.0) g/dL Plt Count 125 L (150-450) k/uL Neutrophils # (Manual) 10.29 H (1.3-7.7) k/uL Lymphocytes # (Manual) 0.76 L (1.0-4.8) k/uL Monocytes # (Manual) 1.65 H (0-1.0) k/uL Sodium (137-145) mmol/L BUN (7-17) mg/dL Creatinine (0.52-1.04) mg/dL Glucose (74-99) mg/dL POC Glucose (mg/dL) 228 H 247 H (75-99) mg/dL Urine Appearance (Clear) Ur Leukocyte Esterase (Negative) Urine WBC (0-5) /hpf Urine WBC Clumps (None) /hpf Ur Squamous Epith Cells (0-4) /hpf Urine Bacteria (None) /hpf Hyaline Casts (0-2) /lpf Urine Mucus (None) /hpf 01/16/20 01/16/20 01/16/20 Range/Units 06:47 08:12 08:47 WBC 10.8 H (3.8-10.6) k/uL RBC 2.69 L (3.80-5.40) m/uL Hgb 7.9 L (11.4-16.0) gm/dL Hct 25.7 L (34.0-46.0) % MCHC 30.8 L (31.0-37.0) g/dL Plt Count 100 L (150-450) k/uL Neutrophils # (Manual) (1.3-7.7) k/uL Lymphocytes # (Manual) 0.76 L (1.0-4.8) k/uL Monocytes # (Manual) 3.13 H (0-1.0) k/uL Sodium 133 L (137-145) mmol/L BUN 42 H (7-17) mg/dL Creatinine 1.81 H (0.52-1.04) mg/dL Glucose 210 H (74-99) mg/dL POC Glucose (mg/dL) 213 H (75-99) mg/dL Urine Appearance (Clear) Ur Leukocyte Esterase (Negative) Urine WBC (0-5) /hpf Urine WBC Clumps (None) /hpf Ur Squamous Epith Cells (0-4) /hpf Urine Bacteria (None) /hpf Hyaline Casts (0-2) /lpf Urine Mucus (None) /hpf 01/16/20 01/16/20 01/16/20 Range/Units 11:34 16:28 Unknown WBC (3.8-10.6) k/uL RBC (3.80-5.40) m/uL Hgb (11.4-16.0) gm/dL Hct (34.0-46.0) % MCHC (31.0-37.0) g/dL Plt Count (150-450) k/uL Neutrophils # (Manual) (1.3-7.7) k/uL Lymphocytes # (Manual) (1.0-4.8) k/uL Monocytes # (Manual) (0-1.0) k/uL Sodium (137-145) mmol/L BUN (7-17) mg/dL Creatinine (0.52-1.04) mg/dL Glucose (74-99) mg/dL POC Glucose (mg/dL) 247 H 249 H (75-99) mg/dL Urine Appearance Cloudy H (Clear) Ur Leukocyte Esterase Large H (Negative) Urine WBC 88 H (0-5) /hpf Urine WBC Clumps Rare H (None) /hpf Ur Squamous Epith Cells 6 H (0-4) /hpf Urine Bacteria Occasional H (None) /hpf Hyaline Casts 3 H (0-2) /lpf Urine Mucus Rare H (None) /hpf Assessment and Plan Assessment: 1- patient electively admitted to the hospital for right hip arthroplasty in this patient who did have a fever of 102F. He went along with elevated white count and abnormal chest x-ray with concern for possible pneumonitis however the chest x-ray did show improvement within 24 hour that'll be less likely to go to his possible pneumonia and more likely to was possible atelectasis the patient also have a positive UA with concern for possible UTI 2-penicillin ALLERGY and that would limit the number of antibiotics safe to use (1) Postoperative fever Current Visit: Yes Status: Acute Code(s): R50.82 - POSTPROCEDURAL FEVER SNOMED Code(s): 196433532 Plan: 1- patient has been started with incentive spirometry 2- we will check a CRP and await for the procalcitonin level 3-continue with empiric Levaquin to which the patient fever seemed to have responded We will follow on clinical condition and cultures to further adjust medication if needed Thank you for this consultation will follow this patient with you Time with Patient: Greater than 30
[2020-01-17] MEDS: LACTATED RINGERS 1,000 ML IV SCH (04:19)
[2020-01-17 06:46] LABS: Glucose,Whole Blood 192 mg/dL (75-99)
[2020-01-17] MEDS: INSULIN ASPART (NovoLOG) 100 UNIT/ML VIAL SQ SCH ×4 (08:27→21:32)
[2020-01-17] MEDS: INSULN ASP PRT/INSULIN ASPART 100 UNIT/ML 10 ML VIAL SQ SCH ×2 (08:28→21:33)
[2020-01-17] MEDS: FENOFIBRATE 160 MG TAB PO SCH (08:28)
[2020-01-17] MEDS: METOPROLOL TARTRATE 50 MG TAB PO SCH ×2 (08:29→21:32)
[2020-01-17] MEDS: PANTOPRAZOLE 40 MG TABLET PO SCH (08:29)
[2020-01-17] MEDS: GABAPENTIN 300 MG CAP PO SCH ×3 (08:30→21:32)
[2020-01-17] MEDS: LEVOFLOXACIN 750 MG TAB PO SCH (08:30)
[2020-01-17] MEDS: RIVAROXABAN 10 MG TAB PO SCH (08:34)
[2020-01-17 09:26] LABS: Basophils % (A) 0 %; Eosinophils # (A) 0.2 k/uL (0-0.7); Eosinophils % (A) 2 %; HCT 23.8 % (34.0-46.0); HGB 7.4 gm/dL (11.4-16.0); Hypochromasia Slight; Lymphocytes % (A) 9 %; MCH 29.9 pg (25.0-35.0); MCHC 31.3 g/dL (31.0-37.0); MCV 95.7 fL (80.0-100.0); Mean Platelet Volume 11.3; Monocytes # (A) 1.8 k/uL (0-1.0); Monocytes % (A) 17 %; Neutrophils # (A) 7.3 k/uL (1.3-7.7); Neutrophils % (A) 67 %; Platelet Count 108 k/uL (150-450); RBC 2.49 m/uL (3.80-5.40); RDW 15.1 % (11.5-15.5); WBC 10.8 k/uL (3.8-10.6)
[2020-01-17 11:19] LABS: Poikilocytosis (M) Present
[2020-01-17 11:36] LABS: Glucose,Whole Blood 206 mg/dL (75-99)
--- NOTE | 2020-01-17 11:58 | P.PN ---
Subjective Progress Note Date: 01/17/20 Principal diagnosis: Status post right total hip arthroplasty Patient evaluated at bedside, she is sitting in a hospital chair. Dr. Casillas was available today to examine the patient with me. She is very lethargic, this is continued to progress over the last few days. Her hemoglobin was noted today to decrease again. She is being followed by both internal medicine and infectious disease, there is further workup pending. She is planning for discharge to rehab once stable. Objective - Vital Signs Vital signs: Vital Signs Temp 97.8 F 01/17/20 07:57 Pulse 82 01/17/20 07:57 Resp 14 01/17/20 07:57 BP 103/66 01/17/20 07:57 Pulse Ox 98 01/17/20 07:57 Intake & Output 01/16/20 01/17/20 01/17/20 18:59 06:59 18:59 Output Total 400 Balance -400 Output: Urine 400 Other: Voiding Method Bedside Commode Bedside Commode # Voids 1 2 - Exam Right lower extremity: Incision is clean, dry, and intact. The exofin fusion tape is in good condition. There is minimal soft tissue swelling and ecchymosis surrounding the medial and lateral aspects of the incision. Calf is soft, no tenderness with palpation. Plantar flexion, dorsiflexion, EHL, FHL are intact. Sensory exam to light touch throughout the extremity is intact, dorsal pedis pulses 2+. - Labs CBC & Chem 7: 01/17/20 08:17 01/16/20 08:47 Labs: Abnormal Lab Results - Last 24 Hours (Table) 01/16/20 01/16/20 01/16/20 Range/Units 08:12 14:12 16:28 WBC (3.8-10.6) k/uL RBC (3.80-5.40) m/uL Hgb (11.4-16.0) gm/dL Hct (34.0-46.0) % Plt Count (150-450) k/uL Monocytes # (0-1.0) k/uL POC Glucose (mg/dL) 249 H (75-99) mg/dL Hemoglobin A1c 6.8 H (4.0-6.0) % C-Reactive Protein (<10.0) mg/L Procalcitonin 0.80 H (0.02-0.09) ng/mL Urine Appearance (Clear) Ur Leukocyte Esterase (Negative) Urine WBC (0-5) /hpf Urine WBC Clumps (None) /hpf Ur Squamous Epith Cells (0-4) /hpf Urine Bacteria (None) /hpf Hyaline Casts (0-2) /lpf Urine Mucus (None) /hpf 01/16/20 01/16/20 01/16/20 Range/Units 20:10 20:18 Unknown WBC (3.8-10.6) k/uL RBC 2.43 L (3.80-5.40) m/uL Hgb 7.3 L (11.4-16.0) gm/dL Hct 23.2 L (34.0-46.0) % Plt Count 100 L (150-450) k/uL Monocytes # (0-1.0) k/uL POC Glucose (mg/dL) 227 H (75-99) mg/dL Hemoglobin A1c (4.0-6.0) % C-Reactive Protein (<10.0) mg/L Procalcitonin (0.02-0.09) ng/mL Urine Appearance Cloudy H (Clear) Ur Leukocyte Esterase Large H (Negative) Urine WBC 88 H (0-5) /hpf Urine WBC Clumps Rare H (None) /hpf Ur Squamous Epith Cells 6 H (0-4) /hpf Urine Bacteria Occasional H (None) /hpf Hyaline Casts 3 H (0-2) /lpf Urine Mucus Rare H (None) /hpf 01/17/20 01/17/20 01/17/20 Range/Units 06:44 08:17 08:17 WBC 10.8 H (3.8-10.6) k/uL RBC 2.49 L (3.80-5.40) m/uL Hgb 7.4 L (11.4-16.0) gm/dL Hct 23.8 L (34.0-46.0) % Plt Count 108 L (150-450) k/uL Monocytes # 1.8 H (0-1.0) k/uL POC Glucose (mg/dL) 192 H (75-99) mg/dL Hemoglobin A1c (4.0-6.0) % C-Reactive Protein 292.4 H (<10.0) mg/L Procalcitonin (0.02-0.09) ng/mL Urine Appearance (Clear) Ur Leukocyte Esterase (Negative) Urine WBC (0-5) /hpf Urine WBC Clumps (None) /hpf Ur Squamous Epith Cells (0-4) /hpf Urine Bacteria (None) /hpf Hyaline Casts (0-2) /lpf Urine Mucus (None) /hpf 01/17/20 Range/Units 11:33 WBC (3.8-10.6) k/uL RBC (3.80-5.40) m/uL Hgb (11.4-16.0) gm/dL Hct (34.0-46.0) % Plt Count (150-450) k/uL Monocytes # (0-1.0) k/uL POC Glucose (mg/dL) 206 H (75-99) mg/dL Hemoglobin A1c (4.0-6.0) % C-Reactive Protein (<10.0) mg/L Procalcitonin (0.02-0.09) ng/mL Urine Appearance (Clear) Ur Leukocyte Esterase (Negative) Urine WBC (0-5) /hpf Urine WBC Clumps (None) /hpf Ur Squamous Epith Cells (0-4) /hpf Urine Bacteria (None) /hpf Hyaline Casts (0-2) /lpf Urine Mucus (None) /hpf Microbiology - Last 24 Hours (Table) 01/15/20 16:23 Blood Culture - Preliminary Blood No Growth after 24 hours 01/16/20 Unknown Urine Culture - Preliminary Urine,Voided Assessment and Plan Assessment: Status post right total hip arthroplasty Plan: Pain control, continue oral medication. GI and DVT prophylaxis, continue current medication Daily dressing changes/ice the hip often Continue physical therapy Medical recommendations 2 units of packed RBCs has been ordered Plan for change of admission to internal medicine due to current medical status and further workup. Orthopedically she remained stable, there are no signs of infection involving the right hip at this time. We placed on consult at this time, and continue to follow patient. Please contact us with any further questions Time with Patient: Less than 30
[2020-01-17] MEDS ORDERED: FUROSEMIDE 10 MG/ML 4 ML VIAL IV STA (15:40)
--- NOTE | 2020-01-17 16:36 | P.PN ---
Subjective Progress Note Date: 01/17/20 Patient was seen and examined. Patient with low-grade fever this morning. CBC showed leukocytosis of 10.0. Multiple family members at bedside. Patient continues to report intense weakness since her admission. She denies any dysuria. She denies any cough. She denies any abdominal pain. No chest pain, shortness of breath or palpitations. Objective - Vital Signs Vital signs: Vital Signs Temp 99.0 F 01/17/20 15:29 Pulse 86 01/17/20 15:29 Resp 18 01/17/20 15:29 BP 114/74 01/17/20 15:29 Pulse Ox 91 L 01/17/20 15:29 Intake & Output 01/16/20 01/17/20 01/17/20 18:59 06:59 18:59 Intake Total 100 Output Total 400 Balance -400 100 Intake: Blood Product 0 Rc As-1 Unit 0 [id number] Other 100 Output: Urine 400 Other: Voiding Method Bedside Commode Bedside Commode # Voids 1 2 - Exam General: [non toxic], [no distress], [appears at stated age] Derm: [warm], [dry] Head: [atraumatic], [normocephalic], [symmetric] Eyes: [EOMI], [no lid lag], [anicteric sclera] Mouth: [no lip lesion], [mucus membranes moist] Cardiovascular: [S1S2 reg], [no murmur], [positive DP pulse bilateral], Lungs: [Decreased breath sounds bilateral], [no rhonchi, no rales] , [no accessory muscle use] Abdominal: [soft], [ nontender to palpation], [no guarding], [no appreciable organomegaly] Ext: [no gross muscle atrophy], [no edema], [no contractures] Neuro: [no focal neuro deficits], tremor with intention Psych: [Alert], [oriented], [appropriate affect] - Labs CBC & Chem 7: 01/17/20 08:17 01/16/20 08:47 Labs: Abnormal Lab Results - Last 24 Hours (Table) 01/16/20 01/16/20 01/16/20 Range/Units 08:12 14:12 16:28 WBC (3.8-10.6) k/uL RBC (3.80-5.40) m/uL Hgb (11.4-16.0) gm/dL Hct (34.0-46.0) % Plt Count (150-450) k/uL Monocytes # (0-1.0) k/uL POC Glucose (mg/dL) 249 H (75-99) mg/dL Hemoglobin A1c 6.8 H (4.0-6.0) % C-Reactive Protein (<10.0) mg/L Procalcitonin 0.80 H (0.02-0.09) ng/mL Crossmatch 01/16/20 01/16/20 01/17/20 Range/Units 20:10 20:18 06:44 WBC (3.8-10.6) k/uL RBC 2.43 L (3.80-5.40) m/uL Hgb 7.3 L (11.4-16.0) gm/dL Hct 23.2 L (34.0-46.0) % Plt Count 100 L (150-450) k/uL Monocytes # (0-1.0) k/uL POC Glucose (mg/dL) 227 H 192 H (75-99) mg/dL Hemoglobin A1c (4.0-6.0) % C-Reactive Protein (<10.0) mg/L Procalcitonin (0.02-0.09) ng/mL Crossmatch 01/17/20 01/17/20 01/17/20 Range/Units 08:17 08:17 11:33 WBC 10.8 H (3.8-10.6) k/uL RBC 2.49 L (3.80-5.40) m/uL Hgb 7.4 L (11.4-16.0) gm/dL Hct 23.8 L (34.0-46.0) % Plt Count 108 L (150-450) k/uL Monocytes # 1.8 H (0-1.0) k/uL POC Glucose (mg/dL) 206 H (75-99) mg/dL Hemoglobin A1c (4.0-6.0) % C-Reactive Protein 292.4 H (<10.0) mg/L Procalcitonin (0.02-0.09) ng/mL Crossmatch 01/17/20 Range/Units 12:56 WBC (3.8-10.6) k/uL RBC (3.80-5.40) m/uL Hgb (11.4-16.0) gm/dL Hct (34.0-46.0) % Plt Count (150-450) k/uL Monocytes # (0-1.0) k/uL POC Glucose (mg/dL) (75-99) mg/dL Hemoglobin A1c (4.0-6.0) % C-Reactive Protein (<10.0) mg/L Procalcitonin (0.02-0.09) ng/mL Crossmatch See Detail Microbiology - Last 24 Hours (Table) 01/15/20 16:23 Blood Culture - Preliminary Blood No Growth after 24 hours 01/16/20 Unknown Urine Culture - Preliminary Urine,Voided Assessment and Plan Assessment: SIRS Acute kidney injury Acute blood loss anemia Diabetes mellitus with hyperglycemia Hypotension GERD Dyslipidemia Obesity with BMI 30.2 Patient meet SIRS criteria with fever, leukocytosis, hypertension. Chest x-ray showing bilateral pneumonia versus CHF which has improved from initial. Urinalysis showing large leukocyte esterase. Pro-calcitonin elevated. CRP elevated. Plans: Bolus 500 mL. Continue Levaquin. Follow blood cultures. Follow urine culture. Follow ID consultation. Creatinine 1.81. Plans: Avoid nephrotoxins. Repeat BMP tomorrow morning. Hemoglobin 7.4. Plans: Transfuse 1 unit PRBC. Repeat CBC tomorrow morning. Cizun-rh-wdtr glucose 206. Plans: Start insulin sliding scale. Regular Accu- Cheks. Hypoglycemic precautions. Restart home dose of insulin. BP 114/74. Plans: Discontinued hydrochlorothiazide and lisinopril. Plans: Restart Protonix. Plans: Restart fenofibrate. Plans: Patient will benefit from a structured weight loss program. Patient names her son and daughter decision maker if she can't make decisions for herself. Patient would like to be full code. [Plans to transfuse 1 unit PRBC for anemia. Continue antibiotics. Cultures are pending. ID on board. She is pending clinical improvement.]
[2020-01-17 16:59] LABS: Glucose,Whole Blood 241 mg/dL (75-99)
--- NOTE | 2020-01-17 18:59 | PN ---
PROGRESS NOTE DATE OF SERVICE: 01/17/2020 REASON FOR FOLLOWUP: Fever and a question of pneumonitis/UTI. INTERVAL HISTORY: The patient is currently afebrile. The patient is complaining of feeling weak and tired; no energy. Denies having any chest pain. Minimal cough. No sputum. No abdominal pain. Has been complaining of pain to the right hip area. No abdominal pain or any diarrhea. PHYSICAL EXAMINATION: Blood pressure 114/67, pulse 83, temperature 99.3. She is 93% on room air. General description is an elderly female up in the chair in no distress. RESPIRATORY SYSTEM: Unlabored breathing with decreased breath sounds at the base. No wheeze. HEART: S1, S2. Regular rate and rhythm. ABDOMEN: Soft. No tenderness. LABS: Hemoglobin 7.4, white count 10.8. CRP is 292.4. Urine was large leukocyte esterase. Blood culture is pending. DIAGNOSTIC IMPRESSION AND PLAN: Patient with a low-grade fever and elevated white count in this patient who did have right hip surgery and a question of pneumonitis. Patient does have PENICILLIN ALLERGY but no anaphylaxis. Will add Rocephin 2 grams daily to Levaquin while waiting for the culture to finalize and condition to stabilize. Continue with supportive care. MMODL / IJN: [id number] /
[2020-01-17 21:20] LABS: Glucose,Whole Blood 215 mg/dL (75-99)
[2020-01-17] MEDS: ATORVASTATIN 20 MG TAB PO SCH (21:32)
[2020-01-17] MEDS: SENNOSIDES-DOCUSATE SODIUM 1 EACH TAB PO SCH (21:32)
[2020-01-17] MEDS: HYDROcodone/APAP 7.5-325MG 1 EACH TAB PO PRN (21:34)
[2020-01-18] MEDS: HYDROcodone/APAP 7.5-325MG 1 EACH TAB PO PRN ×5 (02:42→21:42)
[2020-01-18 07:12] LABS: Glucose,Whole Blood 199 mg/dL (75-99)
[2020-01-18] MEDS: INSULN ASP PRT/INSULIN ASPART 100 UNIT/ML 10 ML VIAL SQ SCH ×2 (09:26→20:34)
[2020-01-18] MEDS: INSULIN ASPART (NovoLOG) 100 UNIT/ML VIAL SQ SCH ×4 (09:27→20:35)
[2020-01-18] MEDS: FENOFIBRATE 160 MG TAB PO SCH (09:28)
[2020-01-18] MEDS: RIVAROXABAN 10 MG TAB PO SCH (09:28)
[2020-01-18] MEDS: GABAPENTIN 300 MG CAP PO SCH ×3 (09:29→20:33)
[2020-01-18] MEDS: PANTOPRAZOLE 40 MG TABLET PO SCH (09:29)
[2020-01-18] MEDS: METOPROLOL TARTRATE 50 MG TAB PO SCH ×2 (09:30→20:33)
[2020-01-18 10:17] LABS: HCT 24.8 % (34.0-46.0); Hypochromasia Slight; MCH 30.1 pg (25.0-35.0); MCHC 32.1 g/dL (31.0-37.0); MCV 93.9 fL (80.0-100.0); Mean Platelet Volume 11.9; Platelet Count 123 k/uL (150-450); RBC 2.65 m/uL (3.80-5.40); WBC 10.6 k/uL (3.8-10.6)
[2020-01-18 10:43] LABS: Albumin 3.5 g/dL (3.5-5.0); Total Bilirubin 0.8 mg/dL (0.2-1.3); Total Protein 6.6 g/dL (6.3-8.2)
--- NOTE | 2020-01-18 10:44 | XR ---
EXAMINATION TYPE: XR chest 1V portable DATE OF EXAM: 01/18/2020 CLINICAL HISTORY: Pneumonia TECHNIQUE: Portable upright view of the chest obtained COMPARISON: 01/16/2020 chest radiograph FINDINGS: The cardiomediastinal silhouette is unchanged. Pulmonary vasculature is normal. Mildly air space opacities of the bilateral lung bases are decreased versus 01/16/2020. No pleural effusion or pn eumothorax seen. Severe degenerative changes of the shoulders. IMPRESSION: Decreased mild airspace opacities versus 01/16/2020. Resolution of pleural effusion.
[2020-01-18] MEDS ORDERED: ASPIRIN 325 MG TAB PO STA (10:59)
[2020-01-18 11:02] LABS: Anisocytosis (M) Present; Eosinophils # (M) 0.11 k/uL (0-0.7); Lymphocytes # (M) 0.85 k/uL (1.0-4.8); Neutrophils # (M) 7.84 k/uL (1.3-7.7); Neutrophils % (M) 74 %; Nucleated Red Blood Cells 0 /100 WBC (0-0); Total Cells Counted 100
--- NOTE | 2020-01-18 11:38 | P.PN ---
Subjective Progress Note Date: 01/18/20 Patient was seen and examined. No acute events overnight. Patient continues to report generalized weakness. She denies any chest pain, shortness of breath or palpitations. No nausea or vomiting. No fever or chills. Transfused 1 unit PRBC yesterday. Objective - Vital Signs Vital signs: Vital Signs Temp 97.9 F 01/18/20 07:00 Pulse 72 01/18/20 07:00 Resp 16 01/18/20 07:00 BP 117/70 01/18/20 07:00 Pulse Ox 93 L 01/18/20 07:00 Intake & Output 01/17/20 01/18/20 01/18/20 18:59 06:59 18:59 Intake Total 410 Output Total 350 Balance 410 -350 Intake: Blood Product 310 Rc As-1 Unit 310 [id number] Other 100 Output: Urine 350 Other: Voiding Method Bedside Commode - Exam General: [non toxic], [no distress], [appears at stated age] Derm: [warm], [dry] Head: [atraumatic], [normocephalic], [symmetric] Eyes: [EOMI], [no lid lag], [anicteric sclera] Mouth: [no lip lesion], [mucus membranes moist] Cardiovascular: [S1S2 reg], [no murmur], [positive DP pulse bilateral], Lungs: [Decreased breath sounds bilateral], [no rhonchi, no rales] , [no accessory muscle use] Abdominal: [soft], [ nontender to palpation], [no guarding], [no appreciable organomegaly] Ext: [no gross muscle atrophy], [no edema], [no contractures] Neuro: [no focal neuro deficits], tremor with intention Psych: [Alert], [oriented], [appropriate affect] - Labs CBC & Chem 7: 01/18/20 09:55 01/18/20 09:55 Labs: Abnormal Lab Results - Last 24 Hours (Table) 01/17/20 01/17/20 01/17/20 Range/Units 11:33 12:56 16:57 RBC (3.80-5.40) m/uL Hgb (11.4-16.0) gm/dL Hct (34.0-46.0) % Plt Count (150-450) k/uL Neutrophils # (Manual) (1.3-7.7) k/uL Lymphocytes # (Manual) (1.0-4.8) k/uL Monocytes # (Manual) (0-1.0) k/uL Sodium (137-145) mmol/L BUN (7-17) mg/dL Creatinine (0.52-1.04) mg/dL Glucose (74-99) mg/dL POC Glucose (mg/dL) 206 H 241 H (75-99) mg/dL AST (14-36) U/L ALT (4-34) U/L Troponin I (0.000-0.034) ng/mL Crossmatch See Detail 01/17/20 01/18/20 01/18/20 Range/Units 21:18 07:11 09:55 RBC 2.65 L (3.80-5.40) m/uL Hgb 8.0 L (11.4-16.0) gm/dL Hct 24.8 L (34.0-46.0) % Plt Count 123 L (150-450) k/uL Neutrophils # (Manual) 7.84 H (1.3-7.7) k/uL Lymphocytes # (Manual) 0.85 L (1.0-4.8) k/uL Monocytes # (Manual) 1.80 H (0-1.0) k/uL Sodium (137-145) mmol/L BUN (7-17) mg/dL Creatinine (0.52-1.04) mg/dL Glucose (74-99) mg/dL POC Glucose (mg/dL) 215 H 199 H (75-99) mg/dL AST (14-36) U/L ALT (4-34) U/L Troponin I (0.000-0.034) ng/mL Crossmatch 01/18/20 01/18/20 Range/Units 09:55 09:55 RBC (3.80-5.40) m/uL Hgb (11.4-16.0) gm/dL Hct (34.0-46.0) % Plt Count (150-450) k/uL Neutrophils # (Manual) (1.3-7.7) k/uL Lymphocytes # (Manual) (1.0-4.8) k/uL Monocytes # (Manual) (0-1.0) k/uL Sodium 135 L (137-145) mmol/L BUN 62 H (7-17) mg/dL Creatinine 2.03 H (0.52-1.04) mg/dL Glucose 237 H (74-99) mg/dL POC Glucose (mg/dL) (75-99) mg/dL AST 52 H (14-36) U/L ALT 37 H (4-34) U/L Troponin I 0.141 H* (0.000-0.034) ng/mL Crossmatch Microbiology - Last 24 Hours (Table) 01/16/20 Unknown Urine Culture - Final Urine,Voided 01/15/20 16:23 Blood Culture - Preliminary Blood No Growth after 48 hours Assessment and Plan Assessment: Non-ST elevation RI SIRS Acute kidney injury Acute blood loss anemia Diabetes mellitus with hyperglycemia Hypotension GERD Dyslipidemia Obesity with BMI 30.2 Troponin elevated 0.141. Patient reports stress test that was negative prior to surgery. Plans: Transfer to [facility]. Aspirin 325 mg stat. Trend troponin. Follow echocardiogram. Consult cardiology. Telemetry monitoring. Patient meet SIRS criteria with fever, leukocytosis, hypertension. Chest x-ray showing bilateral pneumonia versus CHF which has improved from initial. Urinalysis showing large leukocyte esterase. Pro-calcitonin elevated. CRP elevated. Plans: Continue Levaquin. Rocephin ordered by ID. Follow blood cultures. Follow urine culture. Follow ID consultation. Creatinine 2.03. Plans: Avoid nephrotoxins. Repeat BMP tomorrow morning. Hemoglobin 8.0. Plans: Post 1 unit PRBC. Repeat CBC tomorrow morning. Qicat-aa-dtzk glucose 237. Plans: Start insulin sliding scale. Regular Accu- Cheks. Hypoglycemic precautions. Restart home dose of insulin. BP 117/70. Plans: Discontinued hydrochlorothiazide and lisinopril. Plans: Restart Protonix. Plans: Restart fenofibrate. Plans: Patient will benefit from a structured weight loss program. Patient names her son and daughter decision maker if she can't make decisions for herself. Patient would like to be full code. [Patient to be transferred to [facility] elevated troponins. Cardiology consulted. On IV antibiotics. Cultures negative so far. Chest x-ray improved. Discussed with family member at bedside. She is pending clinical improvement.]
[2020-01-18 11:59] LABS: Glucose,Whole Blood 257 mg/dL (75-99)
--- NOTE | 2020-01-18 14:48 | ECHOF ---
Referral Reason:elevated trop MEASUREMENTS -------- HEIGHT: 170.2 cm WEIGHT: 110.2 kg BP: 117/70 IVSd: 1.3 cm (0.6 - 1.1) LVIDd: 3.5 cm (3.9 - 5.3) LVPWd: 1.1 cm (0.6 - 1.1) EDV(Teich): 51 ml IVSs: 1.7 cm LVIDs: 2.8 cm LVPWs: 1.5 cm %IVS Thck: 32 % ESV(Teich): 31 ml EF(Teich): 40 % %FS: 19 % SV(Teich): 21 ml LA Diam: 3.2 cm (2.7 - 3.8) RVIDd: 3.1 cm (< 3.3) IVC: 21.33 mm LALs A4C: 5.7 cm LAAs A4C: 21.1 cm LAESV A-L A4C: 66 ml LAESV MOD A4C: 54 ml LALs A2C: 4.8 cm LAAs A2C: 15.9 cm LAESV A-L A2C: 45 ml LAESV MOD A2C: 41 ml LAESV(A-L): 60 ml LAESV Index (A-L): 27.11 ml/m Ao Diam: 3.4 cm (2.0 - 3.7) AV Cusp: 2.0 cm (1.5 - 2.6) EPSS: 0.6 cm MV E Yariel: 0.85 m/s MV DecT: 227 ms MV Dec [place]: 3.8 m/s MV A Yariel: 1.00 m/s MV E/A Ratio: 0.85 MV PHT: 66 ms AV Vmax: 1.73 m/s AV maxP.01 mmHg TR Vmax: 2.74 m/s TR maxP.09 mmHg RAP: 5.00 mmHg RVSP: 35.09 mmHg MV EF SLOPE: 46.86 mm/s (70 - 150) MV EXCURSION: 16.70 mm (> 18.000) FINDINGS -------- Sinus rhythm. This was a technically good study. The left ventricular size is normal. There is mild concentric left ventricular hypertrophy. Overa left ventricular systolic function is normal with, an EF between 55 - 60 %. The right ventricle is normal in size. Normal LA size by volume 22+/-6 ml/m2. The right atrium is normal in size. Interatrial and interventricular septum intact. There is mild aortic valve sclerosis. There is trace to mild mitral regurgitation. Mild tricuspid regurgitation present. There is mild pulmonary hypertension. The right ventricular systolic pressure, as measured by Doppler, is 35.09mmHg. There is no pulmonic regurgitation present. The aortic root size is normal. Normal inferior vena cava with normal inspiratory collapse consistent with estimated right atrial pre ssure of 5 mmHg. The inferior vena cava is mildly dilated. There is no pericardial effusion. CONCLUSIONS -------- 1. The left ventricular size is normal. 2. There is mild concentric left ventricular hypertrophy. 3. Overall left ventricular systolic function is normal with, an EF between 55 - 60 %. 4. There is mild aortic valve sclerosis. 5. There is trace to mild mitral regurgitation. 6. Mild tricuspid regurgitation present. 7. There is mild pulmonary hypertension. 8. The right ventricular systolic pressure, as measured by Doppler, is 35.09mmHg. 9. The inferior vena cava is mildly dilated. 10. There is no pericardial effusion. DIESEL MAINTENANCE TECHNICIAN: Dorinda Yanez RDCS
[2020-01-18] MEDS: LACTATED RINGERS 1,000 ML IV SCH (15:49)
[2020-01-18 16:29] LABS: Glucose,Whole Blood 247 mg/dL (75-99)
--- NOTE | 2020-01-18 17:40 | PN ---
PROGRESS NOTE DATE OF SERVICE: 01/18/2020 REASON FOR FOLLOWUP: Fever with concern for possible pneumonia. INTERVAL HISTORY: Patient is currently afebrile. Patient is feeling better. The patient denies having any chest pain or shortness of breath. Minimal cough. No nausea, vomiting. No abdominal pain and no urinary symptoms. PHYSICAL EXAMINATION: Blood pressure 120/59 with a pulse of 73, temperature is 97.9. She is 95% on room air. General description is an elderly female up in the chair in no distress. Respiratory system: Unlabored breathing, decreased breath sounds in the base, with no wheeze. Heart S1, S2. Regular rate and rhythm. Abdomen soft, no tenderness. LABS: Hemoglobin 8, white count 10.6, BUN of 52, creatinine 2.03. Blood and culture have been negative. DIAGNOSTIC IMPRESSION AND PLAN: Patient with postop fever, concern likely for pneumonia, possible community-acquired. The patient clinically responded to Rocephin ( ) to continue finish therapy with oral Ceftin. Continue supportive care. MMODL / IJN: [id number] /
[2020-01-18 20:16] LABS: Glucose,Whole Blood 327 mg/dL (75-99)
[2020-01-18] MEDS: ATORVASTATIN 20 MG TAB PO SCH (20:33)
[2020-01-18] MEDS: SENNOSIDES-DOCUSATE SODIUM 1 EACH TAB PO SCH (20:33)
[2020-01-19 06:12] LABS: Glucose,Whole Blood 206 mg/dL (75-99)
[2020-01-19] MEDS: INSULIN ASPART (NovoLOG) 100 UNIT/ML VIAL SQ SCH ×4 (06:23→20:13)
[2020-01-19 06:47] LABS: HCT 20.9 % (34.0-46.0); Hypochromasia Slight; MCHC 31.5 g/dL (31.0-37.0); Mean Platelet Volume 10.6; Platelet Count 123 k/uL (150-450); RDW 14.9 % (11.5-15.5); WBC 8.8 k/uL (3.8-10.6)
[2020-01-19 06:57] LABS: HGB 6.6 gm/dL (11.4-16.0)
[2020-01-19 07:23] LABS: Band Neutrophils % 4 %; Eosinophils # (M) 0.35 k/uL (0-0.7); Lymphocytes # (M) 1.94 k/uL (1.0-4.8); Monocytes # (M) 1.23 k/uL (0-1.0); Neutrophils % (M) 58 %; Nucleated Red Blood Cells 0 /100 WBC (0-0); Total Cells Counted 200
[2020-01-19 07:24] LABS: Polychromasia Present
[2020-01-19] MEDS: INSULN ASP PRT/INSULIN ASPART 100 UNIT/ML 10 ML VIAL SQ SCH ×2 (08:00→20:13)
[2020-01-19] MEDS: LACTATED RINGERS 1,000 ML IV SCH (08:53)
[2020-01-19] MEDS: FENOFIBRATE 160 MG TAB PO SCH (09:00)
[2020-01-19] MEDS: METOPROLOL TARTRATE 50 MG TAB PO SCH ×2 (09:00→20:11)
[2020-01-19] MEDS: PANTOPRAZOLE 40 MG TABLET PO SCH (09:00)
[2020-01-19] MEDS: GABAPENTIN 300 MG CAP PO SCH ×3 (09:00→20:11)
[2020-01-19] MEDS: HYDROcodone/APAP 7.5-325MG 1 EACH TAB PO PRN ×2 (09:00→22:39)
[2020-01-19] MEDS: LEVOFLOXACIN 750 MG TAB PO SCH (09:00)
[2020-01-19] MEDS: RIVAROXABAN 10 MG TAB PO SCH (09:11)
--- NOTE | 2020-01-19 10:45 | XR ---
EXAMINATION TYPE: XR chest 1V portable DATE OF EXAM: 01/19/2020 COMPARISON: 01/18/2020 HISTORY: Shortness of breath TECHNIQUE: Single frontal view of the chest is obtained. FINDINGS: Heart size stable and there is bilateral subsegmental consolidation at the lung bases. Art hropathy shoulders. No overt failure. No pneumothorax. Atherosclerotic change aorta. No sizable pleur al effusion. IMPRESSION: 1. Stable bilateral lower lobe infiltrate or atelectasis
--- NOTE | 2020-01-19 11:37 | P.CRDCN ---
History of Present Illness Consult date: 01/19/20 Chief complaint: elevated troponin History of present illness: The patient is a 74-year-old female who is currently admitted to the hospital after undergoing a right total hip arthroplasty due to osteoarthritis. Cardiology was consulted due to meeting sirs criteria with mildly elevated temperature, leukocytosis, and hypotension. Troponin were mildly elevated at 0.141 and 0.121. Chest x-ray showed mild congestion bilaterally with concern for congestive heart failure. Echocardiogram revealed normal LV function and without significant valvular abnormalities. The patient was interviewed and examined sitting up next to the bed. She is liza rt of breath with conversation, however she had just ambulated with the assistance of 2 nurses. She is somewhat of a poor historian, however she was having difficulty understanding me through my mask. She denies any chest pain or chest pressure. No palpitations or dizziness. She is short of breath and is overall very weak. She is currently receiving a blood transfusion for hemoglobin of 6.6. She states she does follow with a adult basic education instructor through [employer] and did receive cardiac clearance prior to her procedure. DIAGNOSTICS: Echocardiogram shows LV function at 55-60% with mild tricuspid regurgitation and mild pulmonary hypertension Blood pressure 116/51, 91% on room air, pulse rate 90, temperature 97.7F Telemetry shows sinus rhythmsinus tachycardia with heart rates in the 80s to lo w 100s Chest x-ray shows stable bilateral lower lobe infiltrate/atelectasis EKG shows sinus rhythm without acute ST or T-wave changes PAST MEDICAL HISTORY: Obesity, hypertension, dyslipidemia, osteoarthritis, diabetes mellitus, coronary artery disease with previous stent REVIEW OF SYSTEMS: No fever or chills. No cough or expectoration. No diaphoresis. Patient denies headache, dizziness, blurred vision, double vision. Patient denies any stomach discomfort. No nausea, vomiting. No hematochezia. No hematemesis. Denies any black stools or blood in his stools. Denies dysuria or hematuria. Positive for lower extremity and generalized weakness. Positive for shortness of breath with exertion. Negative for chest pain or chest pressure. PHYSICAL EXAMINATION: This is a 74-year-old female in mild distress at the time of my examination. Pale and ill-appearing. HEENT: Head is atraumatic, normocephalic. Pupils are equal, round. Sclerae anicteric. Conjunctivae are clear. Mucous membranes of the mouth are moist. Neck is supple. There is no jugular venous distention. No carotid bruit is heard. CHEST EXAMINATION: Lungs are clear to auscultation. No chest wall tenderness is noted on palpation or with deep breathing. HEART EXAMINATION: Heart regular rate and rhythm. S1, S2 heard. No gallops or rub. Soft systolic murmur. ABDOMEN: Soft, nontender. Bowel sounds are heard. No organomegaly noted. EXTREMITIES: 2+ peripheral pulses with no evidence of peripheral edema and no calf tenderness noted. NEUROLOGIC EXAMINATION: Patient is awake, alert and oriented x3. FINAL ASSESSMENT AND PLAN: #1 osteoarthritis, status post left hip replacement #2 acute blood loss anemia, postoperative #3 mildly elevated troponins, no rise and fall pattern, likely secondary to anemia #4 elevated CRP #5 hypertension #6 dyslipidemia, on atorvastatin #7 obesity, BMI 30 #8 history of coronary artery disease, follows with a [employer] adult basic education instructor PLAN: Acute coronary syndrome has been ruled out. Continue current postoperative medication regimen, including atorvastatin. No additional troponins recomm ended. Past Medical History Past Medical History: Diabetes Mellitus, GERD/Reflux, Hyperlipidemia, Hypertension, Osteoarthritis (OA) Additional Past Medical History / Comment(s): DIVERTICULITIS History of Any Multi-Drug Resistant Organisms: None Reported Past Surgical History: Cholecystectomy, Heart Catheterization With Stent, Tubal Ligation Additional Past Surgical History / Comment(s): LEFT ANKLE ORIF. BILATERAL KNEE REPLACEMENTS. 2 STENTS X 2. Past Anesthesia/Blood Transfusion Reactions: No Reported Reaction Date of Last Stent Placement:: UNKnown Past Psychological History: No Psychological Hx Reported Smoking Status: Never smoker Past Alcohol Use History: None Reported, Rare Past Drug Use History: None Reported - Past Family History Mother Additional Family Medical History / Comment(s): DIVERTICULITIS Medications and Allergies Home Medications Medication Instructions Recorded Confirmed Type Fenofibrate 160 mg PO DAILY 10/07/15 01/14/20 History Metoprolol Tartrate [Lopressor] 50 mg PO BID 10/07/15 01/14/20 History Omeprazole [PriLOSEC] 20 mg PO QAM 10/07/15 01/14/20 History Simvastatin [Zocor] 40 mg PO HS 10/07/15 01/14/20 History Ubidecarenone [Co Q-10] 200 mg PO QAM 10/07/15 01/14/20 History Ascorbic Acid [Vitamin C] 500 mg PO DAILY 02/22/18 01/14/20 History Cholecalciferol [Vitamin D3 (25 2,000 unit PO DAILY 02/22/18 01/14/20 History Mcg = 1000 Iu)] Cyanocobalamin (Vitamin B-12) 1,000 mcg PO DAILY 02/22/18 01/14/20 History [Vitamin B-12] Flaxseed Oil [[place]-3 Flaxseed Oil] 1,000 mg PO DAILY 02/22/18 01/14/20 History Folic Acid 0.4 mg PO DAILY 02/22/18 01/14/20 History Glucosamine-Chondr 500-400Mg 1 tab PO DAILY 02/22/18 01/14/20 History Multivitamins, Thera [Multivitamin 1 tab PO DAILY 02/22/18 01/14/20 History (formulary)] Lisinopril-Hctz 20-12.5 mg 1 tab PO BID #60 tab 02/27/18 01/14/20 Rx [Zestoretic 20-12.5] metFORMIN HCL [Glucophage] 500 mg PO BID-W/MEALS #60 tab 02/27/18 01/14/20 Rx Gabapentin [Neurontin] 600 mg PO TID 01/09/20 01/14/20 History Insulin Aspart Protam & Aspart 15 unit SQ BID 01/09/20 01/14/20 History [NovoLOG MIX 70-30 Flexpen] Naproxen Sodium [Aleve] 3 tab PO BID 01/09/20 01/14/20 History Allergies Allergy/AdvReac Type Severity Reaction Status Date / Time Penicillins Allergy Rash/Hives Verified 01/14/20 07:17 titanium Allergy Anaphylaxis. Verified 01/14/20 07:17 SLOUGHING OF SKIN Physical Exam Vitals: Vital Signs Temp Pulse Pulse Resp BP BP Pulse Ox 01/19/20 10:45 73 16 98/53 97 01/19/20 09:31 98.3 F 77 16 118/58 91 L 01/19/20 09:01 98.3 F 87 16 114/63 91 L 01/19/20 08:51 97.7 F 90 16 116/51 91 L 01/18/20 23:14 78 18 01/18/20 22:31 98.4 F 78 18 116/50 94 L 01/18/20 15:45 73 16 120/59 95 01/18/20 13:30 97.9 F 69 16 101/63 99 Intake and Output 01/18/20 01/19/20 01/19/20 22:59 06:59 14:59 Intake Total 300 240 0 Output Total 200 Balance 300 40 0 Intake: Intake, IV Titration 60 Amount Lactated Ringers 1,000 ml 60 @ 20 mls/hr IV .Q24H DAVY Rx#:[id number] Oral 240 240 Blood Product 0 Rc As-1 Unit 0 [id number] Output: Urine 200 Other: Voiding Method Bedside Commode Bedside Commode # Voids 1 Weight 150.5 kg Results 01/19/20 06:01 01/18/20 09:55 Cardiac Enzymes 01/18/20 Range/Units 12:55 Troponin I 0.121 H* (0.000-0.034) ng/mL CBC 01/19/20 Range/Units 06:01 WBC 8.8 (3.8-10.6) k/uL RBC 2.20 L (3.80-5.40) m/uL Hgb 6.6 L* (11.4-16.0) gm/dL Hct 20.9 L (34.0-46.0) % Plt Count 123 L (150-450) k/uL Current Medications Generic Name Dose Route Start Last Admin Trade Name Freq PRN Reason Stop Dose Admin Acetaminophen 650 mg 01/14/20 09:56 01/16/20 11:38 Tylenol Tab PO 650 mg Q4HR PRN Administration Pain Scale 1 to 5 Hydrocodone Bitart/Acetaminophen 1 each 01/15/20 14:26 01/19/20 09:00 [place] 7.5-325 PO 1 each Q6H PRN Administration Pain Hydrocodone Bitart/Acetaminophen 2 each 01/15/20 14:26 01/18/20 21:42 [place] 7.5-325 PO 2 each Q6H PRN Administration Pain Atorvastatin Calcium 20 mg 01/14/20 21:00 01/18/20 20:33 Lipitor PO 20 mg HS DAVY Administration Fenofibrate 160 mg 01/15/20 09:00 01/19/20 09:00 Lofibra PO 160 mg DAILY DAVY Administration Fentanyl Citrate 50 mcg 01/14/20 06:13 Sublimaze IVP Q3M PRN Pain Control Gabapentin 600 mg 01/14/20 16:00 01/19/20 09:00 Neurontin PO 600 mg TID DAVY Administration Hydromorphone HCl 1 mg 01/14/20 09:56 01/14/20 19:07 Dilaudid IVP 1 mg Q3HR PRN Administration Pain Scale 7 to 10 Lactated Ringer's 1,000 mls @ 20 mls/hr 01/14/20 06:13 01/19/20 08:53 Lactated Ringers IV Not Given .Q24H DAVY Ceftriaxone Sodium 2 gm/ 50 mls @ 100 mls/hr 01/17/20 17:00 01/18/20 17:14 Sodium Chloride IVPB 100 mls/hr Q24HR@1700 DAVY Administration Insulin Aspart 0 unit 01/14/20 17:30 01/19/20 06:23 Novolog SQ Not Given ACHS [facility] Protocol Insulin Aspart 15 unit 01/15/20 21:00 01/19/20 08:00 Insuln Asp Prt/Insulin Aspart 100 Unit/Ml 10 Ml Vial SQ 15 unit BID DAVY Administration Levofloxacin 750 mg 01/17/20 09:00 01/19/20 09:00 Levofloxacin 750 Mg Tab PO 750 mg Q48H DAVY Administration Lidocaine HCl 0.1 ml 01/14/20 06:13 01/14/20 07:43 .Xylocaine 1% Inj (10mg/Ml) For Iv Start INTRADERMA 0.1 ml PER PROTOCOL PRN Administration IV Start Magnesium Hydroxide 2,400 mg 01/14/20 09:56 Milk Of Magnesia PO DAILY PRN Constipation Metoprolol Tartrate 50 mg 01/14/20 21:00 01/19/20 09:00 Lopressor PO 50 mg BID DAVY Administration Naloxone HCl 0.2 mg 01/14/20 09:56 Narcan IV Q2M PRN Opioid Reversal Ondansetron HCl 4 mg 01/14/20 09:56 01/14/20 12:57 Zofran IVP 4 mg DAILY PRN Administration Nausea And Vomiting Pantoprazole Sodium 40 mg 01/15/20 09:00 01/19/20 09:00 Protonix PO 40 mg QAM DAVY Administration Rivaroxaban 10 mg 01/15/20 09:00 01/19/20 09:11 Xarelto PO 02/19/20 09:01 Not Given DAILY DAVY Senna/Docusate Sodium 2 each 01/14/20 21:00 01/18/20 20:33 Senokot-S PO 2 each HS DAVY Administration Intake and Output 01/18/20 01/19/20 01/19/20 22:59 06:59 14:59 Intake Total 300 240 0 Output Total 200 Balance 300 40 0 Intake: Intake, IV Titration 60 Amount Lactated Ringers 1,000 ml 60 @ 20 mls/hr IV .Q24H DAVY Rx#:[id number] Oral 240 240 Blood Product 0 Rc As-1 Unit 0 [id number] Output: Urine 200 Other: Voiding Method Bedside Commode Bedside Commode # Voids 1 Weight 150.5 kg 01/19/20 06:01 01/18/20 09:55
[2020-01-19] MEDS ORDERED: FUROSEMIDE 10 MG/ML 4 ML VIAL IV STA (11:39)
--- NOTE | 2020-01-19 11:39 | P.PN ---
Subjective Progress Note Date: 01/19/20 Patient was seen and examined. No acute events overnight. Patient reports slight improvement in her weakness and breathing. She denies any chest pain, shortness of breath or palpitations. No nausea or vomiting. No fever or chills. Transfuse one PRBC yesterday, hemoglobin 1 from 7.4-8. Hemoglobin 6.6 today transfusing 2 PRBC. Objective - Vital Signs Vital signs: Vital Signs Temp 98.3 F 01/19/20 09:31 Pulse 73 01/19/20 10:45 Resp 16 01/19/20 10:45 BP 98/53 01/19/20 10:45 Pulse Ox 97 01/19/20 10:45 Intake & Output 01/18/20 01/19/20 01/19/20 18:59 06:59 18:59 Intake Total 450 540 0 Output Total 100 200 Balance 350 340 0 Weight 150.5 kg Intake: Intake, IV Titration 50 60 Amount Lactated Ringers 1,000 ml 60 @ 20 mls/hr IV .Q24H DAVY Rx#:[id number] cefTRIAXone 2 gm In 50 Sodium Chloride 0.9% 50 ml @ 100 mls/hr IVPB Q24HR@1700 DAVY Rx#: [id number] Oral 400 480 Blood Product 0 Rc As-1 Unit 0 [id number] Output: Urine 100 200 Other: Voiding Method Bedside Commode Bedside Commode # Voids 1 1 # Bowel Movements 1 - Exam General: [non toxic], [no distress], [appears at stated age] Derm: [warm], [dry] Head: [atraumatic], [normocephalic], [symmetric] Eyes: [EOMI], [no lid lag], [anicteric sclera] Mouth: [no lip lesion], [mucus membranes moist] Cardiovascular: [S1S2 reg], [no murmur], [positive DP pulse bilateral], Lungs: [Decreased breath sounds bilateral], [no rhonchi, no rales] , [no acce ssory muscle use] Abdominal: [soft], [ nontender to palpation], [no guarding], [no appreciable organomegaly] Ext: [no gross muscle atrophy], [no edema], [no contractures], right hip wound looks clean no erythema dressing clean dry and intact Neuro: [no focal neuro deficits], tremor with intention Psych: [Alert], [oriented], [appropriate affect] - Labs CBC & Chem 7: 01/19/20 06:01 01/18/20 09:55 Labs: Abnormal Lab Results - Last 24 Hours (Table) 01/17/20 01/18/20 01/18/20 Range/Units 12:56 11:57 12:55 RBC (3.80-5.40) m/uL Hgb (11.4-16.0) gm/dL Hct (34.0-46.0) % Plt Count (150-450) k/uL Monocytes # (Manual) (0-1.0) k/uL POC Glucose (mg/dL) 257 H (75-99) mg/dL Troponin I 0.121 H* (0.000-0.034) ng/mL Crossmatch See Detail 01/18/20 01/18/20 01/19/20 Range/Units 16:21 20:09 06:01 RBC 2.20 L (3.80-5.40) m/uL Hgb 6.6 L* (11.4-16.0) gm/dL Hct 20.9 L (34.0-46.0) % Plt Count 123 L (150-450) k/uL Monocytes # (Manual) 1.23 H (0-1.0) k/uL POC Glucose (mg/dL) 247 H 327 H (75-99) mg/dL Troponin I (0.000-0.034) ng/mL Crossmatch 01/19/20 Range/Units 06:10 RBC (3.80-5.40) m/uL Hgb (11.4-16.0) gm/dL Hct (34.0-46.0) % Plt Count (150-450) k/uL Monocytes # (Manual) (0-1.0) k/uL POC Glucose (mg/dL) 206 H (75-99) mg/dL Troponin I (0.000-0.034) ng/mL Crossmatch Microbiology - Last 24 Hours (Table) 01/15/20 16:23 Blood Culture - Preliminary Blood No Growth after 72 hours Assessment and Plan Assessment: Elevated troponin SIRS Acute kidney injury Acute blood loss anemia Diabetes mellitus with hyperglycemia Hypotension GERD Dyslipidemia Obesity with BMI 30.2 Troponin elevated 0.141, 0.121. Patient reports stress test that was negative prior to surgery. Echocardiogram shows EF 55-60% with mild concentric LVH. Plans: ACS ruled out. Consult cardiology. Telemetry monitoring. Patient meet SIRS criteria with fever, leukocytosis, hypertension. Chest x-ray showing bilateral pneumonia versus CHF which has improved from initial. Urinalysis showing large leukocyte esterase. Pro-calcitonin elevated. CRP elevated. Urine culture shows genital and skin meaghan. Blood culture negative at 72 hours. Plans: Continue Levaquin. Rocephin ordered by ID. Follow final blood cultures. Follow ID consultation. Creatinine 2.03. Plans: Avoid nephrotoxins. Repeat BMP tomorrow morning. Hemoglobin 6.6. Result of surgery. Plans: Transfuse 2 unit PRBC. Repeat CBC tomorrow morning. Hold Xarelto. [id number] glucose 206. Plans: Start insulin sliding scale. Regular Accu- Cheks. Hypoglycemic precautions. Restart home dose of insulin. BP 98/53. Plans: Discontinued hydrochlorothiazide and lisinopril. Plans: Restart Protonix. Plans: Restart fenofibrate. Plans: Patient will benefit from a structured weight loss program. Patient names her son and daughter decision maker if she can't make decisions for herself. Patient would like to be full code. [Troponins are flat. Cardiology consulted. On IV antibiotics. Hemoglobin continues to drop to 6.6 this morning, 2 PRBC ordered. Cultures negative so far, ID following, on Rocephin and Levaquin. ]
[2020-01-19 11:42] LABS: Glucose,Whole Blood 230 mg/dL (75-99)
[2020-01-19 12:18] VITALS: BMI 52.0
[2020-01-19 16:38] LABS: Glucose,Whole Blood 196 mg/dL (75-99)
[2020-01-19] MEDS: ACETAMINOPHEN TAB 325 MG TAB PO PRN (17:39)
[2020-01-19 20:08] LABS: Glucose,Whole Blood 256 mg/dL (75-99)
[2020-01-19] MEDS: ATORVASTATIN 20 MG TAB PO SCH (20:11)
[2020-01-19] MEDS: SENNOSIDES-DOCUSATE SODIUM 1 EACH TAB PO SCH (20:12)
[2020-01-20 06:46] LABS: Glucose,Whole Blood 166 mg/dL (75-99)
[2020-01-20] MEDS: INSULIN ASPART (NovoLOG) 100 UNIT/ML VIAL SQ SCH ×4 (06:49→21:45)
[2020-01-20 06:57] LABS: HCT 26.3 % (34.0-46.0); Hypochromasia Slight; MCHC 31.8 g/dL (31.0-37.0); MCV 94.3 fL (80.0-100.0); Mean Platelet Volume 10.5; Platelet Count 132 k/uL (150-450); RBC 2.79 m/uL (3.80-5.40); RDW 14.6 % (11.5-15.5); WBC 10.1 k/uL (3.8-10.6)
[2020-01-20 07:12] LABS: Calcium 8.4 mg/dL (8.4-10.2); Potassium 4.7 mmol/L (3.5-5.1)
[2020-01-20 07:18] LABS: HGB 8.4 gm/dL (11.4-16.0)
[2020-01-20] MEDS: METOPROLOL TARTRATE 50 MG TAB PO SCH ×2 (08:58→21:44)
[2020-01-20] MEDS: INSULN ASP PRT/INSULIN ASPART 100 UNIT/ML 10 ML VIAL SQ SCH ×2 (08:58→21:45)
[2020-01-20] MEDS: PANTOPRAZOLE 40 MG TABLET PO SCH (08:58)
[2020-01-20] MEDS: GABAPENTIN 300 MG CAP PO SCH ×3 (08:58→21:44)
[2020-01-20] MEDS: FENOFIBRATE 160 MG TAB PO SCH (08:58)
[2020-01-20] MEDS: HYDROcodone/APAP 7.5-325MG 1 EACH TAB PO PRN ×3 (09:02→21:47)
[2020-01-20] MEDS: RIVAROXABAN 10 MG TAB PO SCH (09:58)
--- NOTE | 2020-01-20 11:50 | PN ---
PROGRESS NOTE DATE OF SERVICE: 01/19/2020 REASON FOR FOLLOWUP: Pneumonia. INTERVAL HISTORY: The patient is currently afebrile. The patient is breathing comfortably. The patient denies having any chest pain. No shortness with minimal cough. No nausea, no vomiting. No abdominal pain. Overall pain to the right hip area is currently controlled. PHYSICAL EXAMINATION: Blood pressure is 118/64 with a pulse of 58, temperature 97.7. She is 98% on 2 L nasal cannula. General description: The patient is an elderly female up in the chair in no distress. Respiratory system: Unlabored breathing, decreased breath sounds at bases. No wheeze. Heart S1, S2. Regular rate and rhythm. ABDOMEN: Soft. No tenderness. LABS: Hemoglobin 6.4, white count 8.8. Blood and urine cultures have been negative so far. IMPRESSION/PLAN: Patient with postop fever with concern likely for possible pneumonia, possibly community acquired. Overall improvement on the Rocephin and the Levaquin. Plan to finish antibiotic with a short course of oral Ceftin. Family at the bedside. Questions and concerns were answered. MMODL / IJN: [id number] /
[2020-01-20 12:02] LABS: Glucose,Whole Blood 244 mg/dL (75-99)
[2020-01-20] MEDS: LACTATED RINGERS 1,000 ML IV SCH (12:46)
--- NOTE | 2020-01-20 13:21 | P.PN ---
Subjective Progress Note Date: 01/20/20 CHIEF COMPLAINT: Elevated troponins HISTORY OF PRESENT ILLNESS: Patient examined this morning. She is sitting up in the chair. She denies shortness of breath. Denies chest pain. She states she has not been up yet ambulating with physical therapy. Hemoglobin yesterday was 6.6. Patient received RBC transfusion. Repeat this morning is 8.4. Creatinine improved from 1.63, down from 2.03. PHYSICAL EXAM: VITAL SIGNS: Reviewed. GENERAL: Well-developed in no acute distress. NECK: Supple. No JVD or thyromegaly LUNGS: Respirations even and unlabored. Lungs essentially clear to auscultation bilaterally. HEART: Regular rate and rhythm. S1 and S2 heard. EXTREMITIES: Normal range of motion. No clubbing or cyanosis. Peripheral pulses intact. No lower extremity edema ASSESSMENT: #1 osteoarthritis, status post left hip replacement #2 acute blood loss anemia, postoperative #3 mildly elevated troponins, no rise and fall pattern, likely secondary to anemia #4 elevated CRP #5 hypertension #6 dyslipidemia, on atorvastatin #7 obesity, BMI 30 #8 history of coronary artery disease, follows with a [place] wrist hemmer PLAN: Continue current medication regimen No further cardiac workup recommended at this time Patient may follow up outpatient post discharge with her wrist hemmer out of [facility] Nurse practitioner note has been reviewed by physician. Signing provider agrees with the documented findings, assessment, and plan of care. Objective - Vital Signs Vital signs: Vital Signs Temp 98.0 F 01/20/20 08:00 Pulse 78 01/20/20 08:00 Resp 16 01/20/20 08:00 BP 130/74 01/20/20 08:00 Pulse Ox 94 L 01/20/20 08:00 Intake & Output 01/19/20 01/20/20 01/20/20 18:59 06:59 18:59 Intake Total 1340 240 240 Output Total 750 200 500 Balance 590 40 -260 Weight 150.5 kg Intake: Oral 720 240 240 Blood Product 620 Rc As-1 Unit 310 [id number] Rc As-1 Unit 310 [id number] Output: Urine 750 200 500 Other: Voiding Method Bedside Commode Bedside Commode # Voids 2 1 - Labs CBC & Chem 7: 01/20/20 06:30 01/20/20 06:30 Labs: Abnormal Lab Results - Last 24 Hours (Table) 01/17/20 01/19/20 01/19/20 Range/Units 12:56 11:41 16:37 RBC (3.80-5.40) m/uL Hgb (11.4-16.0) gm/dL Hct (34.0-46.0) % Plt Count (150-450) k/uL Sodium (137-145) mmol/L BUN (7-17) mg/dL Creatinine (0.52-1.04) mg/dL Glucose (74-99) mg/dL POC Glucose (mg/dL) 230 H 196 H (75-99) mg/dL Crossmatch See Detail 01/19/20 01/20/20 01/20/20 Range/Units 20:05 06:30 06:30 RBC 2.79 L (3.80-5.40) m/uL Hgb 8.4 L D (11.4-16.0) gm/dL Hct 26.3 L (34.0-46.0) % Plt Count 132 L (150-450) k/uL Sodium 134 L (137-145) mmol/L BUN 68 H (7-17) mg/dL Creatinine 1.63 H (0.52-1.04) mg/dL Glucose 152 H (74-99) mg/dL POC Glucose (mg/dL) 256 H (75-99) mg/dL Crossmatch 01/20/20 Range/Units 06:34 RBC (3.80-5.40) m/uL Hgb (11.4-16.0) gm/dL Hct (34.0-46.0) % Plt Count (150-450) k/uL Sodium (137-145) mmol/L BUN (7-17) mg/dL Creatinine (0.52-1.04) mg/dL Glucose (74-99) mg/dL POC Glucose (mg/dL) 166 H (75-99) mg/dL Crossmatch Microbiology - Last 24 Hours (Table) 01/15/20 16:23 Blood Culture - Preliminary Blood No Growth after 96 hours
--- NOTE | 2020-01-20 13:47 | P.PN ---
Subjective Progress Note Date: 01/20/20 74-year-old female with PMH of diabetes mellitus, GERD, hypertension, dyslipidemia and B12 deficiency presents to [facility] for elective surgery. She underwent right total hip arthroplasty on 01/14/2020. On January 14, her hemoglobin dropped to 8.8 which was monitored. There were some complaints of tremor only with intention which progressively improved. On January 15, patient spiked a fever and showed a leukocytosis of 12.7. Chest x-ray was ordered which showed bilateral lower lobe infiltrate, pneumonia versus CHF. Patient complained of intense weakness and she was treated for sepsis. She was started on Levaquin IV and blood cultures were obtained. Her pro- calcitonin was elevated and urinalysis showed large leukocyte esterase. Infectious disease was consulted and patient was started on Rocephin for possible UTI. Urine culture came back negative. Blood culture came back negative at 96 hours at the time of this note. On January 16, her hemoglobin dropped to 7.4 and she was transfused 1 unit PRBC. On January 17, patient continued to be hypotensive and troponin was obtained. Troponin was elevated at 0.141, [facility] [place] Cardiology was consulted and troponins were trended. Troponins were flat and cardiology recommended no further workup. Echocardiogram was done which showed EF 55-60%. On January 18, her hemoglobin dropped to 6.6 and she was transfused 2 additional units of PRBC. Her repeat hemoglobin was 8.4. Patient was seen and examined. No acute events overnight. Patient reports improvement in her generalized weakness. She denies any chest pain, shortness breath or palpitations. No nausea or vomiting. No fever or chills. Her daughter is at bedside. Objective - Vital Signs Vital signs: Vital Signs Temp 97.3 F L 01/20/20 11:25 Pulse 81 01/20/20 11:28 Resp 16 01/20/20 11:25 BP 159/75 01/20/20 11:25 Pulse Ox 95 01/20/20 11:25 Intake & Output 01/19/20 01/20/20 01/20/20 18:59 06:59 18:59 Intake Total 1340 240 240 Output Total 750 200 900 Balance 590 40 -660 Weight 150.5 kg Intake: Oral 720 240 240 Blood Product 620 Rc As-1 Unit 310 [id number] Rc As-1 Unit 310 [id number] Output: Urine 750 200 900 Other: Voiding Method Bedside Commode Bedside Commode # Voids 2 1 - Exam General: [non toxic], [no distress], [appears at stated age] Derm: [warm], [dry] Head: [atraumatic], [normocephalic], [symmetric] Eyes: [EOMI], [no lid lag], [anicteric sclera] Mouth: [no lip lesion], [mucus membranes moist] Cardiovascular: [S1S2 reg], [no murmur], [positive DP pulse bilateral], Lungs: [Decreased breath sounds bilateral], [no rhonchi, no rales] , [no accessory muscle use] Abdominal: [soft], [ nontender to palpation], [no guarding], [no appreciable organomegaly] Ext: [no gross muscle atrophy], [no edema], [no contractures], right hip wound looks clean no erythema dressing clean dry and intact Neuro: [no focal neuro deficits], tremor with intention Psych: [Alert], [oriented], [appropriate affect] - Labs CBC & Chem 7: 01/20/20 06:30 01/20/20 06:30 Labs: Abnormal Lab Results - Last 24 Hours (Table) 01/17/20 01/19/20 01/19/20 Range/Units 12:56 16:37 20:05 RBC (3.80-5.40) m/uL Hgb (11.4-16.0) gm/dL Hct (34.0-46.0) % Plt Count (150-450) k/uL Sodium (137-145) mmol/L BUN (7-17) mg/dL Creatinine (0.52-1.04) mg/dL Glucose (74-99) mg/dL POC Glucose (mg/dL) 196 H 256 H (75-99) mg/dL Crossmatch See Detail 01/20/20 01/20/20 01/20/20 Range/Units 06:30 06:30 06:34 RBC 2.79 L (3.80-5.40) m/uL Hgb 8.4 L D (11.4-16.0) gm/dL Hct 26.3 L (34.0-46.0) % Plt Count 132 L (150-450) k/uL Sodium 134 L (137-145) mmol/L BUN 68 H (7-17) mg/dL Creatinine 1.63 H (0.52-1.04) mg/dL Glucose 152 H (74-99) mg/dL POC Glucose (mg/dL) 166 H (75-99) mg/dL Crossmatch 01/20/20 Range/Units 12:00 RBC (3.80-5.40) m/uL Hgb (11.4-16.0) gm/dL Hct (34.0-46.0) % Plt Count (150-450) k/uL Sodium (137-145) mmol/L BUN (7-17) mg/dL Creatinine (0.52-1.04) mg/dL Glucose (74-99) mg/dL POC Glucose (mg/dL) 244 H (75-99) mg/dL Crossmatch Microbiology - Last 24 Hours (Table) 01/15/20 16:23 Blood Culture - Preliminary Blood No Growth after 96 hours Assessment and Plan Assessment: Elevated troponin SIRS Acute kidney injury Acute blood loss anemia Diabetes mellitus with hyperglycemia Hypertension GERD Dyslipidemia Obesity with BMI 30.2 Troponin elevated 0.141, 0.121. Patient reports stress test that was negative prior to surgery. Echocardiogram shows EF 55-60% with mild concentric LVH. Plans: ACS ruled out. Cardiology recommends no further workup. Patient meet SIRS criteria with fever, leukocytosis, hypotension (vital signs are improving). Chest x-ray showing bilateral pneumonia versus CHF which has improved from initial. Urinalysis showing large leukocyte esterase. Pro- calcitonin elevated. CRP elevated. Urine culture shows genital and skin meaghan. Blood culture negative at 96 hours. Plans: Continue Levaquin. Rocephin ordered by ID. Follow final blood cultures. Follow ID consultation. Creatinine 1.63. Plans: Avoid nephrotoxins. Repeat BMP tomorrow morning. Hemoglobin 6.6-8.4. Result of surgery. Plans: s/p 3 unit PRBC. Repeat CBC tomorrow morning. Restart Xarelto. [id number] glucose 244. Plans: Start insulin sliding scale. Regular Accu- Cheks. Hypoglycemic precautions. Restart home dose of insulin. BP 159/75. Plans: Discontinued hydrochlorothiazide and lisinopril. Monitor lloyd ls, reintroduce antihypertensive medication as patient tolerates. Plans: Restart Protonix. Plans: Restart fenofibrate. Plans: Patient will benefit from a structured weight loss program. Patient names her son and daughter decision maker if she can't make decisions for herself. Patient would like to be full code. [ACS ruled out, cardiology recommended no further workup. Repeat CBC tomorrow m orning. Cultures negative so far, ID following, on Rocephin and Levaquin. Anticipate DC home in 1-2 days if patient continues to show improvement and Hg remains stable. She will be going to [facility].]
--- NOTE | 2020-01-20 16:03 | P.PN ---
Subjective Progress Note Date: 01/20/20 Principal diagnosis: Status post right total hip arthroplasty Patient evaluated at bedside, she is sitting in a hospital chair. Patient is doing a lot better today than last few days. Her hemoglobin has improved. She's been working with therapy and improving. Denies chest pain or shortness Objective - Vital Signs Vital signs: Vital Signs Temp 98.4 F 01/20/20 14:56 Pulse 74 01/20/20 14:56 Resp 16 01/20/20 14:56 BP 135/64 01/20/20 14:56 Pulse Ox 92 L 01/20/20 14:56 Intake & Output 01/19/20 01/20/20 01/20/20 18:59 06:59 18:59 Intake Total 1340 240 240 Output Total 750 200 900 Balance 590 40 -660 Weight 150.5 kg Intake: Oral 720 240 240 Blood Product 620 Rc As-1 Unit 310 [id number] Rc As-1 Unit 310 [id number] Output: Urine 750 200 900 Other: Voiding Method Bedside Commode Bedside Commode # Voids 2 2 # Bowel Movements 1 - Exam Right lower extremity: Incision is clean, dry, and intact. The exofin fusion tape is in good condition. There is minimal soft tissue swelling and ecchymosis surrounding the medial and lateral aspects of the incision. Calf is soft, no tenderness with palpation. Plantar flexion, dorsiflexion, EHL, FHL are intact. Sensory exam to light touch throughout the extremity is intact, dorsal pedis pulses 2+. - Labs CBC & Chem 7: 01/20/20 06:30 01/20/20 06:30 Labs: Abnormal Lab Results - Last 24 Hours (Table) 01/17/20 01/19/20 01/19/20 Range/Units 12:56 16:37 20:05 RBC (3.80-5.40) m/uL Hgb (11.4-16.0) gm/dL Hct (34.0-46.0) % Plt Count (150-450) k/uL Sodium (137-145) mmol/L BUN (7-17) mg/dL Creatinine (0.52-1.04) mg/dL Glucose (74-99) mg/dL POC Glucose (mg/dL) 196 H 256 H (75-99) mg/dL Crossmatch See Detail 01/20/20 01/20/20 01/20/20 Range/Units 06:30 06:30 06:34 RBC 2.79 L (3.80-5.40) m/uL Hgb 8.4 L D (11.4-16.0) gm/dL Hct 26.3 L (34.0-46.0) % Plt Count 132 L (150-450) k/uL Sodium 134 L (137-145) mmol/L BUN 68 H (7-17) mg/dL Creatinine 1.63 H (0.52-1.04) mg/dL Glucose 152 H (74-99) mg/dL POC Glucose (mg/dL) 166 H (75-99) mg/dL Crossmatch 01/20/20 Range/Units 12:00 RBC (3.80-5.40) m/uL Hgb (11.4-16.0) gm/dL Hct (34.0-46.0) % Plt Count (150-450) k/uL Sodium (137-145) mmol/L BUN (7-17) mg/dL Creatinine (0.52-1.04) mg/dL Glucose (74-99) mg/dL POC Glucose (mg/dL) 244 H (75-99) mg/dL Crossmatch Microbiology - Last 24 Hours (Table) 01/15/20 16:23 Blood Culture - Preliminary Blood No Growth after 96 hours Assessment and Plan Assessment: Status post right total hip arthroplasty Plan: Pain control, continue oral medication. GI and DVT prophylaxis, continue current medication Daily dressing changes/ice the hip often Continue physical therapy Medical recommendations 3 units of packed RBCs has been given total, hemoglobin of 8.4. Hopeful discharged to subacute rehab versus assisted living in the next day or 2 Time with Patient: Less than 30
[2020-01-20 16:55] LABS: Glucose,Whole Blood 285 mg/dL (75-99)
--- NOTE | 2020-01-20 17:23 | PN ---
PROGRESS NOTE DATE OF SERVICE: 01/20/2020 REASON FOR FOLLOWUP: Pneumonia. INTERVAL HISTORY: The patient is currently afebrile. The patient is feeling better. Breathing comfortably on room air. Denies having any chest pain. Minimal cough. No nausea, no vomiting. No abdominal pain or pain to the right hip. PHYSICAL EXAMINATION: Blood pressure 135/64 with a pulse of 74, temperature 98.4. She is 92% on room air. General description is an elderly female, up in the chair in no distress. RESPIRATORY SYSTEM: Unlabored breathing, decreased breath sounds at the base. No wheeze. HEART: S1, S2. Regular rate and rhythm. ABDOMEN" Soft, no tenderness. Right hip did have a large bruise. LABS: Hemoglobin 8.4, white count 10.9, BUN of 68, creatinine 1.63. DIAGNOSTIC IMPRESSION AND PLAN: Patient with fever. Concern for possible pneumonia, possible acquired clinically responding to the Rocephin and Levaquin to finish therapy with oral Ceftin, once stable for discharge from Surgery. Continue supportive care. MMODL / IJN: [id number] /
[2020-01-20 19:55] LABS: Glucose,Whole Blood 329 mg/dL (75-99)
[2020-01-20] MEDS: ATORVASTATIN 20 MG TAB PO SCH (21:44)
[2020-01-20] MEDS: SENNOSIDES-DOCUSATE SODIUM 1 EACH TAB PO SCH (21:44)
[2020-01-21] MEDS: ONDANSETRON 4 MG/2 ML VIAL IVP PRN (03:35)
[2020-01-21 06:10] LABS: Glucose,Whole Blood 277 mg/dL (75-99)
[2020-01-21] MEDS: INSULIN ASPART (NovoLOG) 100 UNIT/ML VIAL SQ SCH ×4 (06:32→22:32)
[2020-01-21] MEDS: LACTATED RINGERS 1,000 ML IV SCH (06:33)
[2020-01-21 07:15] LABS: Appearance,Urine Clear (Clear); Bilirubin,Urine Negative (Negative); Blood,Urine Negative (Negative); Color,Urine Light Yellow; Glucose,Urine (UA) Trace (Negative); Ketones,Urine Negative (Negative); Leukocyte Esterase,Urine Negative (Negative); Nitrite,Urine Negative (Negative); PH, Urine 6.5 (5.0-8.0); Protein,Urine Negative (Negative); Specific Gravity,Urine 1.012 (1.001-1.035); Urobilinogen,Urine <2.0 mg/dL (<2.0)
[2020-01-21] MEDS: PANTOPRAZOLE 40 MG TABLET PO SCH (08:54)
[2020-01-21] MEDS: GABAPENTIN 300 MG CAP PO SCH ×3 (08:54→22:28)
[2020-01-21] MEDS: INSULN ASP PRT/INSULIN ASPART 100 UNIT/ML 10 ML VIAL SQ SCH ×2 (08:54→22:34)
[2020-01-21] MEDS: METOPROLOL TARTRATE 50 MG TAB PO SCH ×2 (08:54→22:29)
[2020-01-21] MEDS: FENOFIBRATE 160 MG TAB PO SCH (08:54)
[2020-01-21] MEDS: LEVOFLOXACIN 750 MG TAB PO SCH (08:54)
[2020-01-21] MEDS: RIVAROXABAN 10 MG TAB PO SCH (08:55)
[2020-01-21 09:17] LABS: HCT 26.1 % (34.0-46.0); HGB 8.3 gm/dL (11.4-16.0); Hypochromasia Slight; MCH 30.1 pg (25.0-35.0); MCHC 31.7 g/dL (31.0-37.0); MCV 95.2 fL (80.0-100.0); Mean Platelet Volume 10.8; Platelet Count 146 k/uL (150-450); RBC 2.74 m/uL (3.80-5.40); RDW 14.9 % (11.5-15.5); WBC 9.1 k/uL (3.8-10.6)
[2020-01-21 09:42] LABS: Calcium 8.6 mg/dL (8.4-10.2); Potassium 5.2 mmol/L (3.5-5.1)
--- NOTE | 2020-01-21 10:27 | P.PN ---
Subjective Progress Note Date: 01/21/20 CHIEF COMPLAINT: Elevated troponins HISTORY OF PRESENT ILLNESS: Patient examined this morning. She reports feeling weak and fatigued. She denies shortness of breath. Denies chest pain. Blood pressure stable. Hemoglobin 8.3. Creatinine 1.39, improved from 1.63 yesterday. PHYSICAL EXAM: VITAL SIGNS: Reviewed. GENERAL: Well-developed in no acute distress. NECK: Supple. No JVD or thyromegaly LUNGS: Respirations even and unlabored. Lungs essentially clear to auscultation bilaterally. HEART: Regular rate and rhythm. S1 and S2 heard. EXTREMITIES: Normal range of motion. No clubbing or cyanosis. Peripheral pulses intact. 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 Signing provider agrees with the documented findings, assessment, and plan of care. Objective - Vital Signs Vital signs: Vital Signs Temp 98.8 F 01/21/20 07:00 Pulse 80 01/21/20 07:00 Resp 18 01/21/20 07:00 BP 146/88 01/21/20 07:00 Pulse Ox 96 01/21/20 08:01 Intake & Output 01/20/20 01/21/20 01/21/20 18:59 06:59 18:59 Intake Total 480 240 Output Total 900 400 Balance -420 -400 240 Intake: Oral 480 240 Output: Urine 900 400 Other: Voiding Method Bedside Commode # Voids 2 1 # Bowel Movements 1 - Labs CBC & Chem 7: 01/21/20 08:59 01/21/20 08:59 Labs: Abnormal Lab Results - Last 24 Hours (Table) 01/20/20 01/20/20 01/20/20 Range/Units 12:00 16:54 19:54 RBC (3.80-5.40) m/uL Hgb (11.4-16.0) gm/dL Hct (34.0-46.0) % Plt Count (150-450) k/uL Sodium (137-145) mmol/L Potassium (3.5-5.1) mmol/L BUN (7-17) mg/dL Creatinine (0.52-1.04) mg/dL Glucose (74-99) mg/dL POC Glucose (mg/dL) 244 H 285 H 329 H (75-99) mg/dL Urine Glucose (UA) (Negative) 01/21/20 01/21/20 01/21/20 Range/Units 06:09 06:55 08:59 RBC 2.74 L (3.80-5.40) m/uL Hgb 8.3 L (11.4-16.0) gm/dL Hct 26.1 L (34.0-46.0) % Plt Count 146 L (150-450) k/uL Sodium (137-145) mmol/L Potassium (3.5-5.1) mmol/L BUN (7-17) mg/dL Creatinine (0.52-1.04) mg/dL Glucose (74-99) mg/dL POC Glucose (mg/dL) 277 H (75-99) mg/dL Urine Glucose (UA) Trace H (Negative) 01/21/20 Range/Units 08:59 RBC (3.80-5.40) m/uL Hgb (11.4-16.0) gm/dL Hct (34.0-46.0) % Plt Count (150-450) k/uL Sodium 135 L (137-145) mmol/L Potassium 5.2 H (3.5-5.1) mmol/L BUN 56 H (7-17) mg/dL Creatinine 1.39 H (0.52-1.04) mg/dL Glucose 229 H (74-99) mg/dL POC Glucose (mg/dL) (75-99) mg/dL Urine Glucose (UA) (Negative) Microbiology - Last 24 Hours (Table) 01/15/20 16:23 Blood Culture - Preliminary Blood No Growth after 120 hours
[2020-01-21 11:52] LABS: Glucose,Whole Blood 178 mg/dL (75-99)
[2020-01-21] MEDS: HYDROcodone/APAP 7.5-325MG 1 EACH TAB PO PRN (12:04)
--- NOTE | 2020-01-21 12:53 | P.PN ---
Subjective Progress Note Date: 01/21/20 Principal diagnosis: Status post right total hip arthroplasty Patient evaluated at bedside, she is sitting in a hospital chair. Hemoglobin has remained stable. Denies chest pain or shortness Objective - Vital Signs Vital signs: Vital Signs Temp 98.8 F 01/21/20 07:00 Pulse 80 01/21/20 07:00 Resp 18 01/21/20 07:00 BP 146/88 01/21/20 07:00 Pulse Ox 96 01/21/20 08:01 Intake & Output 01/20/20 01/21/20 01/21/20 18:59 06:59 18:59 Intake Total 480 240 Output Total 900 400 Balance -420 -400 240 Intake: Oral 480 240 Output: Urine 900 400 Other: Voiding Method Bedside Commode # Voids 2 1 # Bowel Movements 1 - Exam Right lower extremity: Incision is clean, dry, and intact. The exofin fusion tape is in good condition. There is minimal soft tissue swelling and ecchymosis surrounding the medial and lateral aspects of the incision. Calf is soft, no tenderness with palpation. Plantar flexion, dorsiflexion, EHL, FHL are intact. Sensory exam to light touch throughout the extremity is intact, dorsal pedis pulses 2+. - Labs CBC & Chem 7: 01/21/20 08:59 01/21/20 08:59 Labs: Abnormal Lab Results - Last 24 Hours (Table) 01/20/20 01/20/20 01/21/20 Range/Units 16:54 19:54 06:09 RBC (3.80-5.40) m/uL Hgb (11.4-16.0) gm/dL Hct (34.0-46.0) % Plt Count (150-450) k/uL Sodium (137-145) mmol/L Potassium (3.5-5.1) mmol/L BUN (7-17) mg/dL Creatinine (0.52-1.04) mg/dL Glucose (74-99) mg/dL POC Glucose (mg/dL) 285 H 329 H 277 H (75-99) mg/dL Urine Glucose (UA) (Negative) 01/21/20 01/21/20 01/21/20 Range/Units 06:55 08:59 08:59 RBC 2.74 L (3.80-5.40) m/uL Hgb 8.3 L (11.4-16.0) gm/dL Hct 26.1 L (34.0-46.0) % Plt Count 146 L (150-450) k/uL Sodium 135 L (137-145) mmol/L Potassium 5.2 H (3.5-5.1) mmol/L BUN 56 H (7-17) mg/dL Creatinine 1.39 H (0.52-1.04) mg/dL Glucose 229 H (74-99) mg/dL POC Glucose (mg/dL) (75-99) mg/dL Urine Glucose (UA) Trace H (Negative) 01/21/20 Range/Units 11:51 RBC (3.80-5.40) m/uL Hgb (11.4-16.0) gm/dL Hct (34.0-46.0) % Plt Count (150-450) k/uL Sodium (137-145) mmol/L Potassium (3.5-5.1) mmol/L BUN (7-17) mg/dL Creatinine (0.52-1.04) mg/dL Glucose (74-99) mg/dL POC Glucose (mg/dL) 178 H (75-99) mg/dL Urine Glucose (UA) (Negative) Microbiology - Last 24 Hours (Table) 01/15/20 16:23 Blood Culture - Preliminary Blood No Growth after 120 hours Assessment and Plan Assessment: Status post right total hip arthroplasty Plan: Pain control, decreased [place] 25 mg/325 mg GI and DVT prophylaxis, depending on creatinine may switching anticoagulant per discharge Daily dressing changes/ice the hip often Continue physical therapy Medical recommendations Planning for discharge to rehab tomorrow Time with Patient: Less than 30
--- NOTE | 2020-01-21 15:36 | PN ---
PROGRESS NOTE DATE OF SERVICE: 01/21/2020 REASON FOR FOLLOWUP: Pneumonia, possibly community-acquired. INTERVAL HISTORY: The patient is currently afebrile. The patient is feeling better, breathing comfortably. Denies having any chest pain. Minimal cough. No nausea. No vomiting or abdominal pain. No diarrhea. Pain to the right hip is currently controlled. PHYSICAL EXAMINATION: Blood pressure 145/76, pulse of 79, temperature 98.8. She is 93% on room air. General description is an elderly female up in the chair in no distress. RESPIRATORY SYSTEM: Unlabored breathing. Clear to auscultation anteriorly. HEART: S1, S2. Regular rate and rhythm. ABDOMEN: Soft. No tenderness. LABS: Hemoglobin 8.3, white count 9.1. BUN of 56, creatinine 1.39. Urine is negative. DIAGNOSTIC IMPRESSION AND PLAN: Patient with postoperative fever. Concern likely for pneumonia in this patient who did have overall clinical improvement on the Rocephin and Levaquin. Plan is to finish her course with oral Ceftin. Family at the bedside, questions were answered. MMODL / IJN: [id number] /
[2020-01-21 16:51] LABS: Glucose,Whole Blood 177 mg/dL (75-99)
[2020-01-21 19:44] LABS: Glucose,Whole Blood 184 mg/dL (75-99)
--- NOTE | 2020-01-21 20:33 | P.PN ---
Subjective Progress Note Date: 01/21/20 (delayed charting seen at 1000) Principal diagnosis: hip pain Patient is a 74-year-old female with diabetes mellitus 2 on oral medications, GERD, hypertension, dyslipidemia and B12 deficiency who presented for elective right total hip arthroplasty on 01/14/2020. Patient seen and examined at bedside. She denies any chest pain, shortness of nausea, vomiting, or diarrhea. General: non toxic, no distress, appears at stated age Derm: warm, dry Head: atraumatic, normocephalic, symmetric Eyes: EOMI, no lid lag, anicteric sclera Mouth: no lip lesion, mucus membranes moist Cardiovascular: S1S2 reg, no murmur, positive posterior tibial pulse bilateral, Lungs: Decreased bs bilateral, no rhonchi, no rales , no accessory muscle use Abdominal: soft, nontender to palpation, no guarding, no appreciable organomegaly Ext: no gross muscle atrophy, no edema, no contractures Neuro: CN II-XI grossly intact, no focal neuro deficits Psych: Alert, oriented, appropriate affect Acute blood loss anemia -Status post 3 units packed red blood cells -Hemoglobin now stable -Restarted on blood thinner -Repeat CBC in a.m. If stable will transition to [facility] facility Right total hip arthroplasty -Orthopedic surgery recommendations appreciated -Pain control -PT and OT -Anticoagulation Diabetes mellitus type 2 -Continue with 70/30 and sliding scale insulin -Follow blood sugars -Typically well-controlled at home with an A1c of 6.8 this admission Pneumonia - Levaquin, rocpehin - ID recs appreciated Acute kidney injury, improving - Cr near baseline of 1 - suspect due to hypovolemia - resume Lisinopril on D/C - Hold HCTZ - repeat in AM Hypertension, controlled -Continue with Lopressor -Lisinopril on hold secondary to ARMANDO -Hydrochlorothiazide on hold secondary to ARMANDO GERD - PPI Dyslipidemia - lipitor Morbid obesity with BMI 52 - outpatient structured weight loss Elevated troponin -Flat -Reflective of demand ischemia with anemia -ACS ruled out -Cardio recommendations appreciated DVT prophylaxis: xarelto Discussed with: patient, nursing, case management Anticipated discharge: in AM Anticipated discharge place: SNF A total of 35 minutes was spent on the care of this complex patient more than 50% of the time was spent in counseling and care coordination. Objective - Vital Signs Vital signs: Vital Signs Temp 98.4 F 01/21/20 16:05 Pulse 76 01/21/20 19:23 Resp 18 01/21/20 19:23 BP 145/75 01/21/20 16:05 Pulse Ox 95 01/21/20 16:05 Intake & Output 01/21/20 01/21/20 01/22/20 06:59 18:59 06:59 Intake Total 585 Output Total 400 Balance -400 585 Intake: Oral 585 Output: Urine 400 Other: Voiding Method Bedside Commode # Voids 1 3 - Labs CBC & Chem 7: 01/21/20 08:59 01/21/20 08:59 Labs: Abnormal Lab Results - Last 24 Hours (Table) 01/21/20 01/21/20 01/21/20 Range/Units 06:09 06:55 08:59 RBC 2.74 L (3.80-5.40) m/uL Hgb 8.3 L (11.4-16.0) gm/dL Hct 26.1 L (34.0-46.0) % Plt Count 146 L (150-450) k/uL Sodium (137-145) mmol/L Potassium (3.5-5.1) mmol/L BUN (7-17) mg/dL Creatinine (0.52-1.04) mg/dL Glucose (74-99) mg/dL POC Glucose (mg/dL) 277 H (75-99) mg/dL Urine Glucose (UA) Trace H (Negative) 01/21/20 01/21/20 01/21/20 Range/Units 08:59 11:51 16:50 RBC (3.80-5.40) m/uL Hgb (11.4-16.0) gm/dL Hct (34.0-46.0) % Plt Count (150-450) k/uL Sodium 135 L (137-145) mmol/L Potassium 5.2 H (3.5-5.1) mmol/L BUN 56 H (7-17) mg/dL Creatinine 1.39 H (0.52-1.04) mg/dL Glucose 229 H (74-99) mg/dL POC Glucose (mg/dL) 178 H 177 H (75-99) mg/dL Urine Glucose (UA) (Negative) 01/21/20 Range/Units 19:42 RBC (3.80-5.40) m/uL Hgb (11.4-16.0) gm/dL Hct (34.0-46.0) % Plt Count (150-450) k/uL Sodium (137-145) mmol/L Potassium (3.5-5.1) mmol/L BUN (7-17) mg/dL Creatinine (0.52-1.04) mg/dL Glucose (74-99) mg/dL POC Glucose (mg/dL) 184 H (75-99) mg/dL Urine Glucose (UA) (Negative) Microbiology - Last 24 Hours (Table) 01/15/20 16:23 Blood Culture - Final Blood No Growth after 144 hours
[2020-01-21] MEDS: HYDROcodone/APAP 5-325MG 1 EACH TAB PO PRN (20:47)
[2020-01-21] MEDS: SENNOSIDES-DOCUSATE SODIUM 1 EACH TAB PO SCH ×2 (22:28→22:47)
[2020-01-21] MEDS: ATORVASTATIN 20 MG TAB PO SCH (22:28)
[2020-01-21] MEDS: HYDROmorphone 1 MG/ML 1 ML SYRINGE IVP PRN (23:07)
[2020-01-22] MEDS: HYDROmorphone 1 MG/ML 1 ML SYRINGE IVP PRN (02:41)
[2020-01-22 07:16] LABS: Glucose,Whole Blood 195 mg/dL (75-99)
[2020-01-22 08:45] LABS: HCT 28.6 % (34.0-46.0); HGB 8.9 gm/dL (11.4-16.0); Hypochromasia Moderate; MCH 29.8 pg (25.0-35.0); MCHC 31.2 g/dL (31.0-37.0); MCV 95.6 fL (80.0-100.0); Mean Platelet Volume 10.1; Platelet Count 146 k/uL (150-450); RBC 2.99 m/uL (3.80-5.40); RDW 14.7 % (11.5-15.5); WBC 9.2 k/uL (3.8-10.6)
[2020-01-22 09:05] LABS: Calcium 8.9 mg/dL (8.4-10.2); Potassium 5.3 mmol/L (3.5-5.1)
[2020-01-22] MEDS ORDERED: SODIUM POLYSTYRENE SULFONATE 15 GM/60 ML BOTTLE PO ONE ×2 (09:30→17:31)
[2020-01-22] MEDS: INSULIN ASPART (NovoLOG) 100 UNIT/ML VIAL SQ SCH ×4 (10:04→21:21)
[2020-01-22] MEDS: LACTATED RINGERS 1,000 ML IV SCH (10:04)
[2020-01-22] MEDS ORDERED: FUROSEMIDE 10 MG/ML 4 ML VIAL IV STA (10:08)
[2020-01-22] MEDS: METOPROLOL TARTRATE 50 MG TAB PO SCH ×2 (10:14→21:21)
[2020-01-22] MEDS: RIVAROXABAN 10 MG TAB PO SCH (10:14)
[2020-01-22] MEDS: FENOFIBRATE 160 MG TAB PO SCH (10:14)
[2020-01-22] MEDS: PANTOPRAZOLE 40 MG TABLET PO SCH (10:14)
[2020-01-22] MEDS: GABAPENTIN 300 MG CAP PO SCH ×3 (10:14→21:21)
[2020-01-22] MEDS: INSULN ASP PRT/INSULIN ASPART 100 UNIT/ML 10 ML VIAL SQ SCH ×2 (10:15→21:21)
[2020-01-22] MEDS: HYDROcodone/APAP 5-325MG 1 EACH TAB PO PRN ×3 (10:15→23:03)
--- NOTE | 2020-01-22 11:13 | P.DS ---
Providers Date of admission: 01/14/2020 Expected date of discharge: 01/22/20 Attending physician: Refugio Casillas Consults: 01/14/20 09:56 Consult Physician Routine Consulting Provider: Hetal Almaguer Consult Reason/Comments: medical management Do you want consulting provider notified?: Yes Primary care physician: Stated None Hospital Course: Date of admission: 01/14/2020 Date of discharge: [01/22/2020] Admission diagnosis: Status post right total hip arthroplasty Discharge diagnosis: Same Attending physician: Dr. Casillas Surgical procedures: Right total hip arthroplasty Brief history: Patient is a 74-year-old female with a history of progressive primary right hip osteoarthritis. At this point patient has failed conservative treatment measures and has opted to proceed with a elective right total hip arthroplasty. Hospital course: Details of patient's surgery can be found in operative report. Patient tolerated the procedure well and was subsequently transported to orthopedic floor. Patient's orthopeidc and medical care was provided daily. Patient had daily laboratory tests performed for evaluation of overall blood counts. Patient had daily physical therapy to include strengthening range of motion as well as education with walker ambulation. Patient was treated with [Xarelto] for their postoperative DVT prophylaxis during their inpatient stay. Patient was noted to have significant blood loss anemia after surgery. She underwent further workup by both internal medicine and cardiology and infectious disease. There was concern for pneumonia, she's been treated for IV antibiotics with plan for oral antibiotics at discharge. She did receive 3 units of packed RBCs. Hemoglobin has improved much, the patient is doing very well. Patient reported satisfactory pain control with oral pain medications by postoperative day 0. Patient showed satisfactory progress with physical therapy. Patient moved steadily through the program and had no difficulty meeting the goals by postoperative day 8. Given patient's otherwise satisfactory course and having met physical therapy goals, plan is to discharge patient rehab on postoperative day 8. Discharge condition/disposition: Patient will be discharged to rehab in stable condition. Discharge medications: Instructions are given on resumption of patient's normal daily medications per primary care recommendation, in addition patient will be prescribed [place] 5 mg/25 mg, Xarelto 10 mg. Discharge instructions: 1. Wound care and infection precautions, [keep incision dry and covered while showering], no lotions, creams, moisturizers. No soaking, tubs, pools, hottubs. Do not scrub over the incision. 2. Weight-bear [as tolerated] with walker / cane until follow-up. 3. Ice and elevate when necessary. Do not exceed 20 minutes per hour with ice pack. 4. Utilize compression sleeve until seen at first follow up appointment. 5. Visiting nursing care. 6. Home physical therapy. 7. Pain meds and anticoagulants per prescription. 8. Pain medication has potential to cause constipation. Increase oral fluid and fiber intake. Contact primary care provider if you have not had a bowel movement within 48 hours after discharge 9. No anti-inflammatory medication until discussed at first post operative visit, this including Motrin, Aleve, Mobic, Diclofenac. 10. Follow up in office at 2 weeks postop with Rajat Flores PA-C 11. Follow up with your primary care doctor 7-10 days after discharge. 12. Contact [facility] with any questions, . Procedures: Right total hip arthroplasty Patient Condition at Discharge: Good Plan - Discharge Summary Discharge Rx Participant: Yes New Discharge Prescriptions: New Hydrocodone/Acetaminophen [[place] 5-325] 1 each PO Q6HR PRN #28 tab PRN Reason: Pain Rivaroxaban [Xarelto] 10 mg PO DAILY #21 tab No Action Fenofibrate 160 mg PO DAILY Metoprolol Tartrate [Lopressor] 50 mg PO BID Omeprazole [PriLOSEC] 20 mg PO QAM Simvastatin [Zocor] 40 mg PO HS Ubidecarenone [Co Q-10] 200 mg PO QAM Ascorbic Acid [Vitamin C] 500 mg PO DAILY Cholecalciferol [Vitamin D3 (25 Mcg = 1000 Iu)] 2,000 unit PO DAILY Cyanocobalamin (Vitamin B-12) [Vitamin B-12] 1,000 mcg PO DAILY Flaxseed Oil [[place]-3 Flaxseed Oil] 1,000 mg PO DAILY Folic Acid 0.4 mg PO DAILY Glucosamine-Chondr 500-400Mg 1 tab PO DAILY Multivitamins, Thera [Multivitamin (formulary)] 1 tab PO DAILY Lisinopril-Hctz 20-12.5 mg [Zestoretic 20-12.5] 1 tab PO BID #60 tab metFORMIN HCL [Glucophage] 500 mg PO BID-W/MEALS #60 tab Naproxen Sodium [Aleve] 3 tab PO BID Gabapentin [Neurontin] 600 mg PO TID Insulin Aspart Protam & Aspart [NovoLOG MIX 70-30 Flexpen] 15 unit SQ BID Discharge Medication List Fenofibrate 160 mg PO DAILY 10/07/15 [History] Metoprolol Tartrate [Lopressor] 50 mg PO BID 10/07/15 [History] Omeprazole [PriLOSEC] 20 mg PO QAM 10/07/15 [History] Simvastatin [Zocor] 40 mg PO HS 10/07/15 [History] Ubidecarenone [Co Q-10] 200 mg PO QAM 10/07/15 [History] Ascorbic Acid [Vitamin C] 500 mg PO DAILY 02/22/18 [History] Cholecalciferol [Vitamin D3 (25 Mcg = 1000 Iu)] 2,000 unit PO DAILY 02/22/18 [History] Cyanocobalamin (Vitamin B-12) [Vitamin B-12] 1,000 mcg PO DAILY 02/22/18 [History] Flaxseed Oil [[place]-3 Flaxseed Oil] 1,000 mg PO DAILY 02/22/18 [History] Folic Acid 0.4 mg PO DAILY 02/22/18 [History] Glucosamine-Chondr 500-400Mg 1 tab PO DAILY 02/22/18 [History] Multivitamins, Thera [Multivitamin (formulary)] 1 tab PO DAILY 02/22/18 [History] Lisinopril-Hctz 20-12.5 mg [Zestoretic 20-12.5] 1 tab PO BID #60 tab 02/27/18 [Rx] metFORMIN HCL [Glucophage] 500 mg PO BID-W/MEALS #60 tab 02/27/18 [Rx] Gabapentin [Neurontin] 600 mg PO TID 01/09/20 [History] Insulin Aspart Protam & Aspart [NovoLOG MIX 70-30 Flexpen] 15 unit SQ BID 01/08 [History] Naproxen Sodium [Aleve] 3 tab PO BID 01/09/20 [History] Hydrocodone/Acetaminophen [[place] 5-325] 1 each PO Q6HR PRN #28 tab 01/22/20 [Rx] Rivaroxaban [Xarelto] 10 mg PO DAILY #21 tab 01/22/20 [Rx] Follow up Appointment(s)/Referral(s): Maeve Reynoso [NON-STAFF] - As Needed Buck Flores, PAC [PHYSICIAN PURCHASING/RECEIVING] - 01/29/20 2:10 pm Activity/Diet/Wound Care/Special Instructions: Activity: [] Diet: [] Wound Care: [] Special Instructions: CBC and BMP in 2 days DX ARMANDO and anemia, hyperkalemia likely due to levaquin which has been stopped. Orthopedic Discharge Instructions: 1. Wound care and infection precautions, keep incision dry and covered while showering, no lotions, creams, moisturizers. No soaking, pools, hot tubs. Do not scrub over incision. 2. Weight-bear as tolerated with walker / cane until follow-up. 3. Ice and elevate when necessary. Do not exceed 20 minutes per hour with ice pack. 4. Utilize compression sleeve until seen at first follow up appointment. 5. Pain meds and anticoagulants per prescription. 6. Pain medication has potential to cause constipation. Increase oral fluid and fiber intake. Contact primary care provider if you have not had a bowel movement within 48 hours after discharge. 7. No anti-inflammatory medication until discussed at first post operative visit, this including Motrin, Aleve, Mobic, Diclofenac. 8. Follow up in office at 2 weeks postop with Rajat Flores PA-C 9. Follow up with your primary care doctor 7-10 days after discharge. 10. Contact [facility] with any questions, . Discharge Disposition: TRANSFER TO SNF/ECF
--- NOTE | 2020-01-22 11:45 | P.PN ---
Subjective Progress Note Date: 01/22/20 CHIEF COMPLAINT: Elevated troponins HISTORY OF PRESENT ILLNESS: Patient examined this morning. She denies shortness of breath. Denies chest pain. Hemoglobin 8.9. Creatinine 1.45. Blood pressure 131/81 PHYSICAL EXAM: VITAL SIGNS: Reviewed. GENERAL: Well-developed in no acute distress. NECK: Supple. No JVD or thyromegaly LUNGS: Respirations even and unlabored. Lungs essentially clear to auscultation bilaterally. HEART: Regular rate and rhythm. S1 and S2 heard. EXTREMITIES: Normal range of motion. No clubbing or cyanosis. Peripheral pulses intact. No lower extremity edema ASSESSMENT: #1 osteoarthritis, status post left hip replacement #2 acute blood loss anemia, postoperative #3 mildly elevated troponins, no rise and fall pattern, likely secondary to anemia along with component of acute kidney injury #4 elevated CRP #5 hypertension #6 dyslipidemia, on atorvastatin #7 obesity, BMI 52 #8 history of coronary artery disease, follows with a [place] vending machine technician PLAN: Continue current medication regimen No further cardiac workup recommended at this time Patient may follow up outpatient post discharge with her vending machine technician out of [facility] Nurse practitioner note has been reviewed by physician. Signing provider agrees with the documented findings, assessment, and plan of care. Objective - Vital Signs Vital signs: Vital Signs Temp 98.1 F 01/22/20 09:00 Pulse 77 01/22/20 09:00 Resp 16 01/22/20 09:00 BP 131/81 01/22/20 09:00 Pulse Ox 94 L 01/22/20 09:00 Intake & Output 01/21/20 01/22/20 01/22/20 18:59 06:59 18:59 Intake Total 585 240 Output Total 400 550 Balance 585 -400 -310 Intake: Oral 585 240 Output: Urine 400 550 Other: Voiding Method Bedside Commode Bedside Commode # Voids 3 1 1 - Labs CBC & Chem 7: 01/22/20 07:37 01/22/20 07:37 Labs: Abnormal Lab Results - Last 24 Hours (Table) 01/21/20 01/21/20 01/21/20 Range/Units 11:51 16:50 19:42 RBC (3.80-5.40) m/uL Hgb (11.4-16.0) gm/dL Hct (34.0-46.0) % Plt Count (150-450) k/uL Potassium (3.5-5.1) mmol/L BUN (7-17) mg/dL Creatinine (0.52-1.04) mg/dL Glucose (74-99) mg/dL POC Glucose (mg/dL) 178 H 177 H 184 H (75-99) mg/dL 01/22/20 01/22/20 01/22/20 Range/Units 07:14 07:37 07:37 RBC 2.99 L (3.80-5.40) m/uL Hgb 8.9 L (11.4-16.0) gm/dL Hct 28.6 L (34.0-46.0) % Plt Count 146 L (150-450) k/uL Potassium 5.3 H (3.5-5.1) mmol/L BUN 54 H (7-17) mg/dL Creatinine 1.45 H (0.52-1.04) mg/dL Glucose 180 H (74-99) mg/dL POC Glucose (mg/dL) 195 H (75-99) mg/dL Microbiology - Last 24 Hours (Table) 01/15/20 16:23 Blood Culture - Final Blood No Growth after 144 hours
--- NOTE | 2020-01-22 11:59 | PN ---
PROGRESS NOTE DATE OF SERVICE: 01/22/2020 REASON FOR FOLLOWUP: Pneumonia. INTERVAL HISTORY: Patient is currently afebrile. The patient is feeling better. Breathing comfortably. Denies having any chest pain. No shortness of breath. Minimal cough. No abdominal pain, no diarrhea. PHYSICAL EXAMINATION: Blood pressure 133/65 with a pulse of 80, temperature 98.8. She is 95% on 2 L nasal cannula. General description is an elderly female up in the chair in no distress. RESPIRATORY SYSTEM: Unlabored breathing, decreased breath sounds at bases, no wheeze. HEART: S1, S2. Regular rate and rhythm. ABDOMEN: Soft, no tenderness. LABS: Hemoglobin 8.8, white count 9.2, BUN of 54, creatinine is 1.45, blood culture has been negative. Urine is negative. DIAGNOSTIC IMPRESSION AND PLAN: Patient elective right hip arthoplasty, did have postop fever, concern for possible pneumonia. Overall clinical improvement on Rocephin. Finish therapy with oral Ceftin, short course. Continue supportive care. MMODL / IJN: [id number] /
[2020-01-22 12:21] LABS: Glucose,Whole Blood 172 mg/dL (75-99)
[2020-01-22 12:46] LABS: Calcium 8.9 mg/dL (8.4-10.2); Potassium 5.5 mmol/L (3.5-5.1)
[2020-01-22 17:25] LABS: Glucose,Whole Blood 174 mg/dL (75-99)
--- NOTE | 2020-01-22 17:43 | P.PN ---
Subjective Progress Note Date: 01/22/20 (delayed charting seen at 0915 ) Principal diagnosis: hip pain Patient is a 74-year-old female with diabetes mellitus 2 on oral medications, GERD, hypertension, dyslipidemia and B12 deficiency who presented for elective right total hip arthroplasty on 01/14/2020. Her hemoglobin dropped 8.8 which was monitored. She continues to do well. On 01/15 she spiked a fever, was to have a leukocytosis of 12.7, and subsequently an x-ray was obtained which showed lower lobe infiltrate consistent with pneumonia versus CHF. She was subsequently started on IV Levaquin as well as IV fluids with treatment for sepsis. Blood cultures were obtained. She is known to have an elevated pro-calcitonin and a urinalysis showed large leukocyte esterase. Infectious disease was consulted and the patient was started on Rocephin for possible urinary tract infection. Ultimately urine culture came back negative. On 01/16 she was noted to have a hemoglobin dropped to 7.4 and she was transfused 1 unit of packed red blood cells. On 01/17 she was noted to be hypotensive and a troponin was obtained. This was elevated at 0.141. Cardiology was consulted. Troponins were trended and were flat not consistent with acute coronary syndrome. She did have an echocardiogram completed which showed an ejection fraction of 55-60% and no signs of global hypokinesis. On 01/18 her hemoglobin dropped to 6.6 and she was transfused an additional 2 units of packed red blood cells. Hemoglobin was repeated and was 8.4. On 01/19 her hemoglobin was stabilized and she was resumed on Xarelto. She was significantly weak. Physical therapy was determined she will need rehab on discharge. She completed a total of 8 days of Rocephin and Levaquin and subsequently discontinued. She was found to have some hype rkalemiawith fluid retention and a dose of lasix was ordered. Patient seen and examined at bedside. She denies any chest pain, shortness of nausea, vomiting, or diarrhea. General: non toxic, no distress, appears at stated age Derm: warm, dry Head: atraumatic, normocephalic, symmetric Eyes: EOMI, no lid lag, anicteric sclera Mouth: no lip lesion, mucus membranes moist Cardiovascular: S1S2 reg, no murmur, positive posterior tibial pulse bilateral, Lungs: Decreased bs bilateral, no rhonchi, no rales , no accessory muscle use Abdominal: soft, nontender to palpation, no guarding, no appreciable organomegaly Ext: no gross muscle atrophy, 1 + edema, no contractures Neuro: CN II-XI grossly intact, no focal neuro deficits Psych: Alert, oriented, appropriate affect Hyperkalemia - suspect due to some lysis and blood cells in conjuction with levaquin - lasix and recheck if still elevated kayexelate Acute blood loss anemia -Status post 3 units packed red blood cells -Hemoglobin now stable -Xarelto -Repeat CBC in a.m. Right total hip arthroplasty -Orthopedic surgery recommendations appreciated -Pain control -PT and OT -Anticoagulation Diabetes mellitus type 2 -Continue with 70/30 and sliding scale insulin -Follow blood sugars -Typically well-controlled at home with an A1c of 6.8 this admission Pneumonia - Completed 7 days of treatment - ID recs appreciated Acute kidney injury, improving - Cr near baseline of 1 - suspect due to hypovolemia - resume Lisinopril on D/C - resume HctZ with swelling - repeat in AM Hypertension, controlled -Continue with Lopressor -Lisinopril on hold secondary to ARMANDO -Hydrochlorothiazide on hold secondary to ARMANDO GERD - PPI Dyslipidemia - lipitor Morbid obesity with BMI 52 - outpatient structured weight loss Elevated troponin -Flat -Reflective of demand ischemia with anemia -ACS ruled out -Cardio recommendations appreciated DVT prophylaxis: zoeto Discussed with: patient, nursing, case management Anticipated discharge: in AM Anticipated discharge place: SNF A total of 35 minutes was spent on the care of this complex patient more than 50% of the time was spent in counseling and care coordination. Objective - Vital Signs Vital signs: Vital Signs Temp 98.4 F 01/22/20 15:20 Pulse 80 01/22/20 15:20 Resp 16 01/22/20 15:20 BP 146/74 01/22/20 15:20 Pulse Ox 95 01/22/20 15:20 Intake & Output 01/21/20 01/22/20 01/22/20 18:59 06:59 18:59 Intake Total 585 476 Output Total 400 1150 Balance 637 -713 -723 Intake: Oral 585 476 Output: Urine 400 1150 Other: Voiding Method Bedside Commode Bedside Commode # Voids 3 1 3 # Bowel Movements 1 - Labs CBC & Chem 7: 01/22/20 07:37 01/22/20 11:58 Labs: Abnormal Lab Results - Last 24 Hours (Table) 01/21/20 01/22/20 01/22/20 Range/Units 19:42 07:14 07:37 RBC 2.99 L (3.80-5.40) m/uL Hgb 8.9 L (11.4-16.0) gm/dL Hct 28.6 L (34.0-46.0) % Plt Count 146 L (150-450) k/uL Sodium (137-145) mmol/L Potassium (3.5-5.1) mmol/L BUN (7-17) mg/dL Creatinine (0.52-1.04) mg/dL Glucose (74-99) mg/dL POC Glucose (mg/dL) 184 H 195 H (75-99) mg/dL 01/22/20 01/22/20 01/22/20 Range/Units 07:37 11:58 12:20 RBC (3.80-5.40) m/uL Hgb (11.4-16.0) gm/dL Hct (34.0-46.0) % Plt Count (150-450) k/uL Sodium 135 L (137-145) mmol/L Potassium 5.3 H 5.5 H (3.5-5.1) mmol/L BUN 54 H 52 H (7-17) mg/dL Creatinine 1.45 H 1.40 H (0.52-1.04) mg/dL Glucose 180 H 175 H (74-99) mg/dL POC Glucose (mg/dL) 172 H (75-99) mg/dL Microbiology - Last 24 Hours (Table) 01/15/20 16:23 Blood Culture - Final Blood No Growth after 144 hours
[2020-01-22 21:06] LABS: Glucose,Whole Blood 223 mg/dL (75-99)
[2020-01-22] MEDS: ATORVASTATIN 20 MG TAB PO SCH (21:21)
[2020-01-22] MEDS: SENNOSIDES-DOCUSATE SODIUM 1 EACH TAB PO SCH (21:21)
[2020-01-23] MEDS: HYDROmorphone 1 MG/ML 1 ML SYRINGE IVP PRN (01:51)
[2020-01-23 05:15] LABS: African American GFR (CKD) 35.9 (60.0-200.0); Anion Gap 14.3 mmol/L (4.00-12.00); BUN/Creat Ratio 32.5 Ratio (12.00-20.00); Calcium 9.1 mg/dL (8.7-10.3); Carbon Dioxide 20.7 mmol/L (21.6-31.8); Potassium 5.1 mmol/L (3.5-5.5)
[2020-01-23 06:49] LABS: HCT 26.1 % (34.0-46.0); HGB 8.2 gm/dL (11.4-16.0); Hypochromasia Moderate; MCH 29.8 pg (25.0-35.0); MCHC 31.5 g/dL (31.0-37.0); MCV 94.4 fL (80.0-100.0); Mean Platelet Volume 9.9; Platelet Count 146 k/uL (150-450); RBC 2.77 m/uL (3.80-5.40); RDW 14.8 % (11.5-15.5); WBC 7.7 k/uL (3.8-10.6)
[2020-01-23 06:52] LABS: Glucose,Whole Blood 216 mg/dL (75-99)
[2020-01-23 07:27] VITALS: BP 148/71; PULSE 69; RESP 16; TEMP 97.6
[2020-01-23] MEDS: INSULIN ASPART (NovoLOG) 100 UNIT/ML VIAL SQ SCH ×2 (08:03→12:04)
[2020-01-23] MEDS ORDERED: FUROSEMIDE 10 MG/ML 4 ML VIAL IV SCH (09:00)
[2020-01-23 09:19] LABS: African American GFR (CKD) 38.8 (60.0-200.0); Anion Gap 10.1 mmol/L (4.00-12.00); Calcium 8.5 mg/dL (8.7-10.3); Carbon Dioxide 24.9 mmol/L (21.6-31.8); Non-African American GFR(CKD) 33.5 (60.0-200.0); Potassium 4.7 mmol/L (3.5-5.5)
[2020-01-23] MEDS: FENOFIBRATE 160 MG TAB PO SCH (09:48)
[2020-01-23] MEDS: PANTOPRAZOLE 40 MG TABLET PO SCH (09:48)
[2020-01-23] MEDS: METOPROLOL TARTRATE 50 MG TAB PO SCH (09:48)
[2020-01-23] MEDS: GABAPENTIN 300 MG CAP PO SCH (09:49)
[2020-01-23] MEDS: RIVAROXABAN 10 MG TAB PO SCH (09:50)
[2020-01-23] MEDS: INSULN ASP PRT/INSULIN ASPART 100 UNIT/ML 10 ML VIAL SQ SCH (10:01)
[2020-01-23 11:46] LABS: Glucose,Whole Blood 188 mg/dL (75-99)
[2020-01-23] MEDS: HYDROcodone/APAP 5-325MG 1 EACH TAB PO PRN (12:03)
--- NOTE | 2020-01-23 12:50 | P.DS ---
Providers Date of admission: 01/17/20 09:15 Expected date of discharge: 01/23/20 Attending physician: Bacilio Greene MD Consults: 01/14/20 09:56 Consult Physician Routine Consulting Provider: Hetal Almaguer Consult Reason/Comments: medical management Do you want consulting provider notified?: Yes 01/16/20 12:50 Consult Physician Routine Consulting Provider: Beau Castaneda Consult Reason/Comments: SIRS + possible PNA Do you want consulting provider notified?: Yes 01/18/20 10:59 Consult Physician Stat Consulting Provider: Nate Elaine Consult Reason/Comments: elevated trop Do you want consulting provider notified?: Yes Primary care physician: Stated None Hospital Course: Discharge Diagnosis: Hyperkalemia Acute blood loss anemia Right total hip arthroplasty Diabetes mellitus type 2 Pneumonia, community acquired Acute kidney injury, improving Hypertension, controlled GERD Dyslipidemia Morbid obesity with BMI 52 Elevated troponin Hospital Course: Patient is a 74-year-old female with diabetes mellitus 2 on oral medications, GERD, hypertension, dyslipidemia and B12 deficiency who presented for elective right total hip arthroplasty on 01/14/2020. Her hemoglobin dropped 8.8 which was monitored. She continues to do well. On 01/15 she spiked a fever, was to have a leukocytosis of 12.7, and subsequently an x-ray was obtained which showed lower lobe infiltrate consistent with pneumonia versus CHF. She was subsequently started on IV Levaquin as well as IV fluids with treatment for sepsis. Blood cultures were obtained. She is known to have an elevated pro-calcitonin and a urinalysis showed large leukocyte esterase. Infectious disease was consulted and the patient was started on Rocephin for possible urinary tract infection. Ultimately urine culture came back negative. On 01/16 she was noted to have a hemoglobin dropped to 7.4 and she was transfused 1 unit of packed red blood cells. On 01/17 she was noted to be hypotensive and a troponin was obtained. This was elevated at 0.141. Cardiology was consulted. Troponins were trended and were flat not consistent with acute coronary syndrome. She did have an echocardiogram completed which showed an ejection fraction of 55-60% and no signs of global hypokinesis. On 01/18 her hemoglobin dropped to 6.6 and she was transfused an additional 2 units of packed red blood cells. Hemoglobin was repeated and was 8.4. On 01/19 her hemoglobin was stabilized and she was resumed on Xarelto. She was significantly weak. Physical therapy was determined she will need rehab on discharge. She completed a total of 8 days of Rocephin and Levaquin and subsequently discontinued. She was found to have some hyperkalemia with fluid retention and a dose of lasix was ordered, she had also received kayexelate but never had a bowel movement. Her potassium stabilized as well as her hemoglobin. She was determined stable for discharge. CBC and BMP in 2 days, metformin not restarted at discharge with Cr 1.5, Will need lisinopril restarted once renal function improved (was on lisinopril/HCTZ combo pill currently on HCTZ only). Patient seen and examined at bedside. No chest pain, SOB, nausea, or vomiting. Pain is doing well. We discussed why she is not on here aleve. Vital signs reviewed and stable. General: non toxic, no distress, appears at stated age, Obese Derm: warm, dry Head: atraumatic, normocephalic, symmetric Eyes: EOMI, no lid lag, anicteric sclera Mouth: no lip lesion, mucus membranes moist Cardiovascular: S1S2 reg, no murmur, positive posterior tibial pulse bilateral, Lungs: CTA bilateral, no rhonchi, no rales , no accessory muscle use Abdominal: soft, nontender to palpation, no guarding, no appreciable organomegaly Ext: no gross muscle atrophy, no edema, no contractures Neuro: CN II-XI grossly intact, no focal neuro deficits Psych: Alert, oriented, appropriate affect A total of 35 minutes of time were spent preparing this complex discharge summary . Patient Condition at Discharge: Stable Plan - Discharge Summary Discharge Rx Participant: Yes New Discharge Prescriptions: New Hydrocodone/Acetaminophen [Centrahoma 5-325] 1 each PO Q6HR PRN #28 tab PRN Reason: Pain Rivaroxaban [Xarelto] 10 mg PO DAILY #21 tab Ferrous Sulfate [Slow Fe] 142 mg PO DAILY #30 tablet.er Hydrochlorothiazide [hydroCHLOROthiazide] 12.5 mg PO DAILY #30 capsule Continue Fenofibrate 160 mg PO DAILY Metoprolol Tartrate [Lopressor] 50 mg PO BID Omeprazole [PriLOSEC] 20 mg PO QAM Simvastatin [Zocor] 40 mg PO HS Ubidecarenone [Co Q-10] 200 mg PO QAM Ascorbic Acid [Vitamin C] 500 mg PO DAILY Cholecalciferol [Vitamin D3 (25 Mcg = 1000 Iu)] 2,000 unit PO DAILY Cyanocobalamin (Vitamin B-12) [Vitamin B-12] 1,000 mcg PO DAILY Folic Acid 0.4 mg PO DAILY Glucosamine-Chondr 500-400Mg 1 tab PO DAILY Multivitamins, Thera [Multivitamin (formulary)] 1 tab PO DAILY Insulin Aspart Protam & Aspart [NovoLOG MIX 70-30 Flexpen] 15 unit SQ BID Gabapentin [Neurontin] 600 mg PO TID #30 cap Discontinued Flaxseed Oil [Shanks-3 Flaxseed Oil] 1,000 mg PO DAILY Lisinopril-Hctz 20-12.5 mg [Zestoretic 20-12.5] 1 tab PO BID #60 tab metFORMIN HCL [Glucophage] 500 mg PO BID-W/MEALS #60 tab Naproxen Sodium [Aleve] 3 tab PO BID Discharge Medication List Fenofibrate 160 mg PO DAILY 10/07/15 [History] Metoprolol Tartrate [Lopressor] 50 mg PO BID 10/07/15 [History] Omeprazole [PriLOSEC] 20 mg PO QAM 10/07/15 [History] Simvastatin [Zocor] 40 mg PO HS 10/07/15 [History] Ubidecarenone [Co Q-10] 200 mg PO QAM 10/07/15 [History] Ascorbic Acid [Vitamin C] 500 mg PO DAILY 02/22/18 [History] Cholecalciferol [Vitamin D3 (25 Mcg = 1000 Iu)] 2,000 unit PO DAILY 02/22/18 [History] Cyanocobalamin (Vitamin B-12) [Vitamin B-12] 1,000 mcg PO DAILY 02/22/18 [History] Folic Acid 0.4 mg PO DAILY 02/22/18 [History] Glucosamine-Chondr 500-400Mg 1 tab PO DAILY 02/22/18 [History] Multivitamins, Thera [Multivitamin (formulary)] 1 tab PO DAILY 02/22/18 [History] Insulin Aspart Protam & Aspart [NovoLOG MIX 70-30 Flexpen] 15 unit SQ BID 01/09/20 [History] Hydrocodone/Acetaminophen [Centrahoma 5-325] 1 each PO Q6HR PRN #28 tab 09/16/20 [Rx] Rivaroxaban [Xarelto] 10 mg PO DAILY #21 tab 01/22/20 [Rx] Ferrous Sulfate [Slow Fe] 142 mg PO DAILY #30 tablet.er 01/23/20 [Rx] Gabapentin [Neurontin] 600 mg PO TID #30 cap 01/23/20 [Rx] Hydrochlorothiazide [hydroCHLOROthiazide] 12.5 mg PO DAILY #30 capsule 01/23/20 [Rx] Follow up Appointment(s)/Referral(s): [facility] - As Needed Buck Flores PAC [PHYSICIAN MARKET CONSULTANT] - 01/29/20 2:10 pm Activity/Diet/Wound Care/Special Instructions: Diet: carb consistent Special Instructions: CBC and BMP in 2 days DX ARMANDO and anemia, hyperkalemia likely due to levaquin which has been stopped. Orthopedic Discharge Instructions: 1. Wound care and infection precautions, keep incision dry and covered while showering, no lotions, creams, moisturizers. No soaking, pools, hot tubs. Do not scrub over incision. 2. Weight-bear as tolerated with walker / cane until follow-up. 3. Ice and elevate when necessary. Do not exceed 20 minutes per hour with ice pack. 4. Utilize compression sleeve until seen at first follow up appointment. 5. Pain meds and anticoagulants per prescription. 6. Pain medication has potential to cause constipation. Increase oral fluid and fiber intake. Contact primary care provider if you have not had a bowel movement within 48 hours after discharge. 7. No anti-inflammatory medication until discussed at first post operative visit, this including Motrin, Aleve, Mobic, Diclofenac. 8. Follow up in office at 2 weeks postop with Rajat Flores PA-C 9. Follow up with your primary care doctor 7-10 days after discharge. 10. Contact [facility] with any questions, . Discharge Disposition: TRANSFER TO SNF/ECF
--- NOTE | 2020-01-23 15:49 | PN ---
PROGRESS NOTE DATE OF SERVICE: 01/23/2020 REASON FOR FOLLOWUP: Pneumonia. INTERVAL HISTORY: The patient is currently afebrile. The patient is feeling better, breathing comfortably. The patient denies having any chest pain or shortness of breath or cough. No nausea, no vomiting. No abdominal pain or diarrhea. PHYSICAL EXAMINATION: Blood pressure 148/71, pulse of 69, temperature 97.6. She is 96% on room air. General description is an elderly female up in the bed in no distress. RESPIRATORY SYSTEM: Unlabored breathing with decreased intensity of breath sounds. No wheeze. HEART: S1, S2. Regular rate and rhythm. ABDOMEN: Soft. No tenderness. LABS: Hemoglobin 8.9, white count 7.7, creatinine 1.5. DIAGNOSTIC IMPRESSION AND PLAN: Patient with a fever, possible pneumonia. Overall improvement on the Rocephin. She has received adequate antibiotic therapy during this admission; should be enough. No need for any antibiotic on discharge. Continue with supportive care. MMODL / IJN: [id number] /
--- NOTE | 2020-01-24 13:27 | CDI ---
Documentation Clarification Form Date: 01/24/20 From: Madeleine Goel CCS Phone: If you have a question about this query, please contact Kati Leon, Spiral Machine Operator at [phone] between 8am and 5pm. Admit Date: 01/17/20 Discharge Date:01/23/20 Patient Name: Delmy Barth Visit Number: [id number] ATTENTION: The Clinical Documentation Specialists (CDI) and [facility] Coding Staff appreciate your assistance in clarifying documentation. Please respond to the clarification below the line at the bottom and electronically sign. The CDI & [facility] Coding staff will review the response and follow-up if needed. Please note: Queries are made part of the Legal Health Record. If you have any questions, please contact the author of this message via ITS. Dear Dr. Almaguer, A pressure ulcer was documented in the Wound Care Assessment. Wound Care Assessment on 01/13 documents deep tissue pressure injury coccyx and pressure injury to right buttock stage II present on admission. History/Risk Factors: Morbid obesity BMI 52, Sepsis, UTI, HTN, DM, DJD Clinical Indicators: Pressure injuries Treatment: Zinc paste Consults: Wound care 01/13, 01/14 Elements for accurate and compliant documentation of an ulcer: *The location/laterality of the ulcer *Etiology (decubitus/pressure, diabetic, PVD) *Stage I-IV, Unstageable, Suspected Deep Tissue Injury (To the deepest stage) *If the ulcer was present at admission (POA) or occurred after admission In your professional opinion, can you please clarify if you agree with the diagnosis of pressure injury to coccyx deep tissue injury and pressure injury to right buttock stage II, present on admission (POA): Deep Tissue Pressure injury to Coccyx and stage II pressure injury to right Buttock POA Pressure injury ruled out Unstageable Other condition, please specify Unable to determine Deep Tissue Pressure injury to Coccyx and stage II pressure injury to right Buttock POA MTDD
--- NOTE | 2020-01-24 13:38 | CDI ---
Documentation Clarification Form Date: 01/24/20 From: Madeleine Goel CCS Phone: If you have a question about this query, please contact Kati Leon, Container Finisher at [phone] between 8am and 5pm. Admit Date: 01/17/20 Discharge Date:01/23/20 Patient Name: Delmy Barth Visit Number: [id number] ATTENTION: The Clinical Documentation Specialists (CDI) and [facility] Coding Staff appreciate your assistance in clarifying documentation. Please respond to the clarification below the line at the bottom and electronically sign. The CDI & [facility] Coding staff will review the response and follow-up if needed. Please note: Queries are made part of the Legal Health Record. If you have any questions, please contact the author of this message via ITS. Dear Dr. Almaguer, Patient presented with troponin of: 01/17 Labs: 0.141, 0.121 PN 01/21 documents: Elevated troponin -Flat -Reflective of demand ischemia with anemia -ACS ruled out Consult 01/18 documents: mildly elevated troponins, no rise and fall pattern, likely secondary to anemia Patient history/risk factors: Sepsis, PNA, Morbid obesity, CAD, S/P CABG, ABLA, Hypotension Clinical indicators: Hypotension, Eevated troponin Treatment: Monitor, Cardiology Consult In your professional opinion, can you please specify the diagnosis, if any, indicated by the above clinical indicators and treatment? Type II HI Elevated Troponin Other, please specify Unable to determine Elevated Troponin as already diagnosed in discharge summary MTDD
--- NOTE | 2020-01-24 14:02 | CDI ---
Documentation Clarification Form Date: 01/24/20 From: Madeleine Goel CCS Phone: If you have a question about this query, please contact Kati Leon, Relay Shop Tester at [phone] between 8am and 5pm. Admit Date: 01/17/20 Discharge Date:01/23/20 Patient Name: Delmy Barth Visit Number: [id number] ATTENTION: The Clinical Documentation Specialists (CDI) and [facility] Coding Staff appreciate your assistance in clarifying documentation. Please respond to the clarification below the line at the bottom and electronically sign. The CDI & [facility] Coding staff will review the response and follow-up if needed. Please note: Queries are made part of the Legal Health Record. If you have any questions, please contact the author of this message via ITS. Dear Dr. Almaguer, CHF is documented in the PNs. Consult, DS. History/Risk Factors: DM, Sepsis, Morbid obesity BMI 52, HTN, PAH, UTI, DJD Clinical Indicators: Fluid retention, Effusion VS/Pulse OX: BP 96/49, AZ 73, RR 14, O2 Sat 97 BNP: None Echocardiogram Results: The left ventricular size is normal.There is mild concentric left ventricular hypertrophy.Overall left ventricular systolic function is normal with, an EF between 55 - 60 % Chest X Ray: Bilateral lower lobe infiltrate and small effusion correlate for pneumonia, otherwise consider CHF. Treatment: Lasix 40 mg IV In your professional opinion, can you please clarify the acuity and type of CHF if known? Systolic Heart Failure: Acute Chronic Acute on Chronic Diastolic Heart Failure: Acute Chronic Acute on Chronic Systolic & Diastolic Heart Failure: Acute Chronic Acute on Chronic Heart Failure CHF ruled out Unable to Determine Other, please specify There is NO mention of CHF on Consult or progress notes from internal medicine or cardiology. MTDD
== END 2020-01-23 14:15 | DRG 853 ==
LOC: OR 06:40 → 4SSUR 09:54 → OR 01-15 15:11 → OBSVTOIN 01-17 09:15 → 3SCARD 01-18 13:11 → 4SSUR 01-22 17:09
PROVIDERS: ADMIT Family Medicine; ATTEND Family Medicine
PROC: 0SR902A Replacement of Right Hip Joint with Metal on Polyethylene Synthetic Substitute, Uncemented, Open Approach (ICD-10-PCS; principal; 2020-01-14 08:00)
PROC: 30233N1 Transfusion of Nonautologous Red Blood Cells into Peripheral Vein, Percutaneous Approach (ICD-10-PCS; 2020-01-17)
DX: A41.9 Sepsis, unspecified organism (principal); J18.9 Pneumonia, unspecified organism; N17.9 Acute kidney failure, unspecified; D62 Acute posthemorrhagic anemia; Z68.43 Body mass index [BMI] 50.0-59.9, adult; N39.0 Urinary tract infection, site not specified; Z20.828 Contact with and (suspected) exposure to other viral communicable diseases; I27.22 Pulmonary hypertension due to left heart disease; L89.156 Pressure-induced deep tissue damage of sacral region; L89.312 Pressure ulcer of right buttock, stage 2; I95.9 Hypotension, unspecified; E11.65 Type 2 diabetes mellitus with hyperglycemia; E66.01 Morbid (severe) obesity due to excess calories; Z79.4 Long term (current) use of insulin; M16.11 Unilateral primary osteoarthritis, right hip; K21.9 Gastro-esophageal reflux disease without esophagitis; E78.5 Hyperlipidemia, unspecified; E53.8 Deficiency of other specified B group vitamins; M19.90 Unspecified osteoarthritis, unspecified site; I07.1 Rheumatic tricuspid insufficiency; R25.1 Tremor, unspecified; I25.10 Atherosclerotic heart disease of native coronary artery without angina pectoris; R79.82 Elevated C-reactive protein (CRP); R79.89 Other specified abnormal findings of blood chemistry; E86.1 Hypovolemia; E87.5 Hyperkalemia; I10 Essential (primary) hypertension; Z71.3 Dietary counseling and surveillance; Z79.899 Other long term (current) drug therapy; Z96.653 Presence of artificial knee joint, bilateral; Z87.19 Personal history of other diseases of the digestive system; Z95.5 Presence of coronary angioplasty implant and graft; Z90.49 Acquired absence of other specified parts of digestive tract; Z98.890 Other specified postprocedural states; Z91.048 Other nonmedicinal substance allergy status; Z88.0 Allergy status to penicillin; Z83.79 Family history of other diseases of the digestive system
CPT/HCPCS: 36415; 71045; 73501; 80048; 80053; 81001; 81003; 83036; 83605; 84145; 84484; 85025; 85027; 86140; 86850; 86900; 86901; 86920; 87040; 87086; 88300; 93005; 93306; 94760

== ENCOUNTER 2024-08-06 05:41 | Day surgery (SDC) | payer BC, MEDICARE ==
[2024-08-06] MEDS ORDERED: LACTATED RINGERS 1,000 ML IV SCH (05:51)
[2024-08-06] MEDS ORDERED: LIDOCAINE 1% (10MG/ML) FOR IV START INTRADERMA PRN (05:51)
[2024-08-06] MEDS: SODIUM CHLORIDE 0.9% 500 ML 500 ML IV ONE (06:40)
[2024-08-06 06:41] LABS: Glucose,Whole Blood 99 mg/dL (70-110)
[2024-08-06 06:57] VITALS: RESP 16; TEMP 96.8
[2024-08-06] MEDS ORDERED: HYDROmorphone 0.5 MG/0.5 ML SYRINGE IVP PRN (07:00)
[2024-08-06 07:03] LABS: African American GFR (CKD) 21 (>60 ml/min/1.73 sqM); Anion Gap 8 mmol/L; Blood Urea Nitrogen 29 mg/dL (7-17); Calcium 8.7 mg/dL (8.4-10.2); Carbon Dioxide 27 mmol/L (22-30); Chloride 101 mmol/L (98-107); Glucose 101 mg/dL (74-99); Non-African American GFR(CKD) 18 (>60 ml/min/1.73 sqM); Sodium 136 mmol/L (137-145)
[2024-08-06 07:08] LABS: Potassium 4.3 mmol/L (3.5-5.1)
[2024-08-06] MEDS: fentaNYL (PF) 50 MCG/ML 2 ML AMP IVP PRN (07:14)
[2024-08-06] MEDS: MIDAZOLAM 2 MG/2 ML VIAL IV PRN (07:14)
[2024-08-06 07:24] LABS: HCT 36.5 % (34.0-46.0); HGB 11.7 gm/dL (11.4-16.0); Hypochromasia Slight; MCH 30.8 pg (25.0-35.0); MCHC 31.9 g/dL (31.0-37.0); MCV 96.6 fL (80.0-100.0); Mean Platelet Volume 12.5; RBC 3.78 m/uL (3.80-5.40); RDW 15.7 % (11.5-15.5); WBC 4.1 k/uL (3.8-10.6)
--- NOTE | 2024-08-06 07:24 | P.ANPRN ---
Procedure Note - Anesthesia - Nerve Block Performed Left Supraclavicular Single Time Out Performed: Yes Date of Procedure: 08/06/24 Procedure Start Time: 07:13 Procedure Stop Time: 07:18 Location of Patient: PreOp Indication: Acute Post-Operative Pain, Analgesia, Requested by Surgeon Sedation Type: Sedate with meaningful contact maintained Preparation: Sterile Prep Position: Sitting Catheter: None Needle Types: Pajunk Needle Gauge: 21 Ultrasound used to visualize needle placement: Yes Ultrasound used to observe medication spread: Yes Injectate: 0.5% Ropivacaine (see comment for volume) ([id number].) Blood Aspirated: No Pain Paresthesia on Injection Noted: No Resistance on Injection: Normal Image Stored and Saved: Yes Events: Uneventful and Well Tolerated
[2024-08-06] MEDS ORDERED: PROTAMINE SULFATE 10 MG/ML 5 ML VIAL ONE (07:25)
[2024-08-06] MEDS ORDERED: MIDAZOLAM 2 MG/2 ML VIAL ONE (07:25)
[2024-08-06] MEDS ORDERED: fentaNYL (PF) 50 MCG/ML 2 ML AMP ONE (07:25)
[2024-08-06] MEDS ORDERED: DEXAMETHASONE SOD PHOSPHATE 4 MG/ML 1 ML VIAL ONE (07:25)
[2024-08-06] MEDS ORDERED: ROPIVACAINE 5 MG/ML 30 ML VIAL ONE (07:25)
[2024-08-06] MEDS ORDERED: HEPARIN SODIUM,PORCINE 5,000 UNIT/ML 1 ML VIAL ONE (07:25)
[2024-08-06] MEDS: ONDANSETRON 4 MG/2 ML VIAL IVP ONE (07:27)
[2024-08-06] MEDS: DEXAMETHASONE SOD PHOSPHATE 4 MG/ML 1 ML VIAL IV ONE (07:27)
[2024-08-06] MEDS: THROMBIN (BOVINE) 5,000 UNIT VIAL TOPICAL ONE ×2 (07:53)
[2024-08-06] MEDS: ceFAZolin 2 GM in SODIUM CHLORIDE 0.9% 500 ML 500 ML IRRIGATION ONE (07:54)
[2024-08-06] MEDS: HEPARIN SODIUM,PORCINE (1 ML) 2,000 UNIT in SODIUM CHLORIDE 0.9% 500 ML 500 ML IRRIGATION ONE (07:55)
[2024-08-06 08:35] LABS: Eosinophils # (M) 0.21 k/uL (0-0.7); Lymphocytes # (M) 0.66 k/uL (1.0-4.8); Monocytes # (M) 0.94 k/uL (0-1.0); Neutrophils % (M) 56 %; Nucleated Red Blood Cells 0 /100 WBC (0-0); Total Cells Counted 100
[2024-08-06 08:40] LABS: Platelet Count 48 k/uL (150-450)
[2024-08-06 08:42] LABS: Large Platelets Present
--- NOTE | 2024-08-06 09:52 | P.OP ---
Date of Procedure: 08/06/24 Preoperative Diagnosis: End-stage renal disease Postoperative Diagnosis: Same Procedure(s) Performed: Left upper extremity loop arteriovenous graft creation Anesthesia: regional Surgeon: Ministerio Mohan Estimated Blood Loss (ml): 100 Pathology: none sent Condition: stable Disposition: PACU Indications for Procedure: 79-year-old female with history of end-stage renal disease on hemodialysis via right-sided chest catheter presented to the office for evaluation for possible access and vein mapping demonstrated poor size veins throughout her upper extremity and therefore she presents for loop AV graft creation. Description of Procedure: After written informed consent was obtained the patient all risks benefits and complications were described patient is brought to the operative suite and laid in a supine position with the left arm outstretched on an armboard. The area of the arm was then prepped and draped in usual sterile fashion after appropriate anesthetic was performed per the anesthesiologist. A timeout was performed in normal fashion antibiotics were administered prior to incision. A transverse incision was then created just distal to the elbow and dissection was carried down to the antecubital vein and this was dissected free in a circumferential manner. Proximal and distal control was obtained with vessel loops. Attention was then placed to the artery and the brachial artery was then dissected free in a circumferential manner and controlled with vessel loops for the proximal and distal aspect. A tunnel was then created in a loop fashion with a counterincision made in the forearm and a 4-7 mm Ulman propatent graft was tunneled in a loop fashion. Patient was then administered heparin. Arterial anastomosis was then performed after arteriotomy was created in the brachial artery and extended with Pott Chiu scissors. We 4 mm aspect of the graft was then spatulated in normal fashion and anastomosis was created with 6-0 Prolene suture in a running fashion. Control was then released into the graft revealing good pulsatile blood flow. Distal control of the artery was then released. Assessment of the radial artery demonstrated good pulse. The anastomosis was then performed. Venotomy was created with 11 blade scalpel and extended with Pott Chiu scissors. A 7 mm aspect of the graft was then spatulated in normal fashion and anastomosis was created with 6-0 Prolene suture in a running fashion. Prior to last sutures being placed control was released revealing good backbleeding from the vein. The graft was flushed with heparin saline. Control was then released revealing good pulsatile blood flow within the vein with a good palpable thrill noted. Hemostasis was then assured with Gelfoam and thrombin. Incisions were then closed in a multilayer fashion. Skin was cleansed and dressings were placed. The patient tolerated the procedure well and was sent to PACU for recovery.
[2024-08-06 10:38] VITALS: BP 139/70; PULSE 65
== END 2024-08-06 10:44 | disposition home or self-care (01) ==
LOC: OR 05:41
PROVIDERS: ATTEND Surgery
DX: I12.0 Hypertensive chronic kidney disease with stage 5 chronic kidney disease or end stage renal disease (principal); N18.6 End stage renal disease; K21.9 Gastro-esophageal reflux disease without esophagitis; E78.5 Hyperlipidemia, unspecified; I25.10 Atherosclerotic heart disease of native coronary artery without angina pectoris; I50.9 Heart failure, unspecified; E11.9 Type 2 diabetes mellitus without complications; E07.9 Disorder of thyroid, unspecified; H91.90 Unspecified hearing loss, unspecified ear; L23.1 Allergic contact dermatitis due to adhesives; Z99.2 Dependence on renal dialysis; Z88.0 Allergy status to penicillin; Z89.521 Acquired absence of right knee; Z89.522 Acquired absence of left knee; Z88.8 Allergy status to other drugs, medicaments and biological substances; Z79.899 Other long term (current) drug therapy
CPT/HCPCS: 64415; 80048; 85025; 36830; L8670; J2250; J2720; J1644; J1100; J0690; J2405; J3010; J2795